=== PATIENT | male | born 1995 | race African-American/Black ===

== ENCOUNTER 2019-01-10 04:46 | Inpatient (IN) | payer MEDICAID, OTHER ==
[~2019-01-10] VITALS: Ht 188 cm; Wt 66.7 kg
[2019-01-10] MEDS ORDERED: OCTREOTIDE ACETATE 100 MCG in SODIUM CHL 0.9% 50 ML IV ONE (05:30)
[2019-01-10] MEDS ORDERED: OCTREOTIDE ACETATE 500 MCG in SODIUM CHL 0.9% 99 ML IV SCH (05:30)
[2019-01-10] MEDS ORDERED: OCTREOTIDE ACETATE 500 MCG/ML VL ONE (05:42)
[2019-01-10] MEDS ORDERED: OCTREOTIDE ACETATE 100 MCG/ML VL ONE (05:44)
[2019-01-10] MEDS ORDERED: PROMETHAZINE HCL 25 MG/ML 1ML IV ONE (05:45)
[2019-01-10] MEDS ORDERED: MORPHINE SULFATE 4 MG/ML SYR/VIAL IV ONE (05:45)
[2019-01-10 06:09] LABS: Basophils # (auto) 0 uL; Basophils % (auto) 0.1 % (0.0-2.0); Eosinophils # (auto) 0 uL; Hematocrit 49.7 % (41.0-53.0); Hemoglobin 16.4 g/dL (13.5-17.5); Lymphocytes # (auto) 0.9 uL; Lymphocytes % (auto) 5.1 % (10.0-50.0); Mean Corpuscular Hgb Conc. 32.9 g/dL (32.0-36.0); Mean Corpuscular Volume 88.1 fL (80.0-100.0); Monocytes # (auto) 0.9 uL; Monocytes % (auto) 4.9 % (0.0-12.0); Neutrophils % (auto) 89.9 % (37.0-80.0); Nucleated Red Blood Cells % 0.1 %; Platelet Count (auto) 331 10^3/uL (140-450); Red Blood Cells 5.64 10^6/uL (4.5-5.90); Red Cell Distribution Width 17.7 % (11.8-14.3); White Blood Cell 17.8 10^3/uL (4.4-10.8)
[2019-01-10 06:42] LABS: Albumin 4.2 g/dL (3.4-5.0); BUN/Creatinine Ratio 29.8; Calcium 9.4 mg/dL (8.5-10.1); Potassium 4.2 mmol/L (3.5-5.1)
[2019-01-10 06:45] LABS: Bilirubin, Total 0.7 mg/dL (0.2-1.0); Total Protein 8.9 g/dL (6.4-8.2)
[2019-01-10 07:08] LABS: INR 0.94 (0.9-1.15); Partial Thromboplastin Time 26.8 sec (23.64-32.05)
--- NOTE | 2019-01-10 07:35 | NUR ---
Opening Shift Note Assumed care of patient. Patient is sleeping with bilateral chest rise and fall. Will continue to monitor for changes Q1hr and PRN. Bed in low position and call light within reach
[2019-01-10] MEDS ORDERED: MORPHINE SULF INJ 2 MG/ML SYRINGE 1ML IV PRN (07:45)
[2019-01-10] MEDS ORDERED: DEXTROSE (50%) 50ML SYRG IV PRN (07:45)
[2019-01-10] MEDS ORDERED: NITROGLYCERIN 0.4 MG SL TAB SL PRN (07:45)
[2019-01-10] MEDS: SODIUM CHLORIDE 0.9% 1,000 ML IV SCH ×2 (08:43→21:25)
[2019-01-10] MEDS ORDERED: INSU1INJ19 SC (10:47)
[2019-01-10] MEDS ORDERED: INSREG3 SC (10:47)
[2019-01-10 10:56] LABS: Hematocrit 49.9 % (41.0-53.0); Hemoglobin 16.3 g/dL (13.5-17.5)
[2019-01-10] MEDS: LEVOFLOXACIN 500MG 100 ML IV SCH (11:06)
[2019-01-10] MEDS: PANTOPRAZOLE 40 MG TAB PO SCH ×2 (11:06→22:00)
[2019-01-10] MEDS: ACCU-CHEK COMFORT CURVE STRIP VI SCH ×2 (13:02→17:53)
[2019-01-10] MEDS: InsuLIN REG 1unit/0.01ml Soln (100units/ml) SC SCH ×2 (13:02→17:56)
[2019-01-10 14:35] VITALS: BP 132/79
[2019-01-10 16:53] VITALS: BP 142/71
--- NOTE | 2019-01-10 19:35 | NUR ---
Opening Shift Note Assumed care of patient. Patient is sleeping with bilateral chest rise and fall. Will continue to monitor for changes Q1hr and PRN. Bed in low position and call light within reach. Disregard last note from 0735 01/10/19.
[2019-01-10 20:00] VITALS: BP 134/76
[2019-01-10 21:18] VITALS: BP 146/89
[2019-01-11] MEDS: ACCU-CHEK COMFORT CURVE STRIP VI SCH ×4 (00:03→18:06)
[2019-01-11] MEDS: ONDANSETRON HCL 4 MG/2 ML VIAL IV PRN ×4 (00:03→20:48)
[2019-01-11] MEDS: InsuLIN REG 1unit/0.01ml Soln (100units/ml) SC SCH ×4 (00:04→18:07)
--- NOTE | 2019-01-11 03:05 | NUR ---
patient had an episode of Tachycardia in the 130bpm. Upon arrival to room patient is vomiting. VS 140/70 b/p, 80HR, 97% o2 saturation via room air. patient denies pain at the moment 0/10. Will medicate with nausea medication per protocol.
[2019-01-11 04:39] VITALS: BP 122/78
[2019-01-11 07:42] VITALS: BP 134/76
[2019-01-11 09:00] VITALS: BP 130/62
[2019-01-11] MEDS ORDERED: SODIUM CHLORIDE LOCK 10 ML ONE (09:51)
[2019-01-11] MEDS ORDERED: LIDOCAINE VISCOUS 2% 15ML UD ONE (09:52)
[2019-01-11] MEDS ORDERED: diphenhdrAMINE HCL 50 MG/1 ML VL ONE (09:52)
[2019-01-11] MEDS: PANTOPRAZOLE 40 MG TAB PO SCH ×2 (10:00→20:48)
[2019-01-11] MEDS: SODIUM CHLORIDE 0.9% 1,000 ML IV SCH ×2 (10:30→23:45)
[2019-01-11] MEDS: MIDAZOLAM HCL 5 MG/ML-1ML VIAL ONE ×2 (11:03→11:06)
[2019-01-11] MEDS: fentaNYL CITRATE 100 MCG/2 ML VL ONE ×2 (11:03→11:06)
[2019-01-11] MEDS: LEVOFLOXACIN 500MG 100 ML IV SCH (12:06)
[2019-01-11 13:00] VITALS: BP 139/50
[2019-01-11 13:19] LABS: Basophils # (auto) 0 uL; Basophils % (auto) 0.1 % (0.0-2.0); Eosinophils # (auto) 0 uL; Hematocrit 52.7 % (41.0-53.0); Hemoglobin 16.6 g/dL (13.5-17.5); Lymphocytes # (auto) 1.1 uL; Lymphocytes % (auto) 6.6 % (10.0-50.0); Mean Corpuscular Hemoglobin 28.5 pg (28.0-32.0); Mean Corpuscular Hgb Conc. 31.4 g/dL (32.0-36.0); Mean Corpuscular Volume 90.7 fL (80.0-100.0); Monocytes # (auto) 0.8 uL; Monocytes % (auto) 4.8 % (0.0-12.0); Neutrophils % (auto) 88.5 % (37.0-80.0); Platelet Count (auto) 314 10^3/uL (140-450); Red Blood Cells 5.82 10^6/uL (4.5-5.90); Red Cell Distribution Width 17.7 % (11.8-14.3); White Blood Cell 16.9 10^3/uL (4.4-10.8)
[2019-01-11 13:36] LABS: BUN/Creatinine Ratio 26.7; Potassium 4.1 mmol/L (3.5-5.1)
[2019-01-11 13:42] LABS: Calcium 9.2 mg/dL (8.5-10.1)
[2019-01-11 22:00] VITALS: BP 118/60
[2019-01-12] MEDS: InsuLIN REG 1unit/0.01ml Soln (100units/ml) SC SCH ×3 (00:20→12:28)
[2019-01-12] MEDS: ACCU-CHEK COMFORT CURVE STRIP VI SCH ×3 (00:20→12:27)
[2019-01-12 05:53] VITALS: BP 123/75
--- NOTE | 2019-01-12 07:25 | NUR ---
Open Shift Note Received report on patient, awake and lying in bed. Patient shows no signs of distress at this time. Discussed POC with patient. Bed in lowest locked position, side rails up x2 and call light within reach. Will continue to monitor.
--- NOTE | 2019-01-12 07:40 | NUR ---
REPORT GIVEN TO ELENA LORD
[2019-01-12 09:00] VITALS: BP 139/86
[2019-01-12] MEDS: LEVOFLOXACIN 500MG 100 ML IV SCH (10:08)
[2019-01-12] MEDS: PANTOPRAZOLE 40 MG TAB PO SCH (10:08)
[2019-01-12] MEDS: SODIUM CHLORIDE 0.9% 1,000 ML IV SCH (10:08)
--- NOTE | 2019-01-12 11:01 | NUR ---
Nutrition Assessment Notes please see attached link for complete assessment Est. Needs IBW [id number] kcal (25-30 kcal/kgBW), 86-103 gms pro (1.0-1.2 gms/kgBW). Will continue to monitor pertinent labs and reassess nutrient need prn Addendum: 01/12/19 at [address] Amended: Links added.
[2019-01-12 13:00] VITALS: BP 137/71
[2019-01-12 14:57] VITALS: BP 137/71
--- NOTE | 2019-01-12 16:10 | NUR ---
Discharged Discharge instructions given as ordered. Encourage to follow up with PMD and Dr Decker as instructed. All questions and concerns addressed. Patient verbalized understanding as well as patient's mother. Prescription given to patient and instructed to fill it at pharmacy of choice. IVs removed with catheters intact, pressure dressings applied, babin catheter removed. Patient taken to vehicle via wheelchair with all personal belongings, accompanied by staff and family member. No distress noted at time of departure.
--- NOTE | 2019-01-12 17:05 | NUR ---
Debora Called Patient's pharmacy [facility] called to state that patient's insurance will not cover BID Protonix, they will only cover Daily Protonix. Paged Dr Son to ask him if he would like to change the order. Dr Son stated that it is ok to change the order to Daily Protonix. Order read back and verified. Called [facility] back and spoke with Pharmacist Lyly, order changed.
== END 2019-01-12 16:10 | disposition home or self-care (01) | DRG 720 ==
LOC: EDSEX 04:46 → EDBD 04:46 → ER 04:46 → TELE 04:47 → TELE-CENTR 10:03 → CENTRAL 01-11 11:09
PROVIDERS: ADMIT Nurse Practitioner; ATTEND Internal Medicine Pulmonary Disease
PROC: 0DB48ZX Excision of Esophagogastric Junction, Via Natural or Artificial Opening Endoscopic, Diagnostic (ICD-10-PCS; principal; 2019-01-10)
PROC: 0DB68ZX Excision of Stomach, Via Natural or Artificial Opening Endoscopic, Diagnostic (ICD-10-PCS; 2019-01-10)
DX: A41.9 Sepsis, unspecified organism (principal); K29.71 Gastritis, unspecified, with bleeding; E10.65 Type 1 diabetes mellitus with hyperglycemia; I69.354 Hemiplegia and hemiparesis following cerebral infarction affecting left non-dominant side; D64.9 Anemia, unspecified; N39.0 Urinary tract infection, site not specified; H54.61 Unqualified visual loss, right eye, normal vision left eye; F12.90 Cannabis use, unspecified, uncomplicated; K44.9 Diaphragmatic hernia without obstruction or gangrene; K20.9 Esophagitis, unspecified; K52.9 Noninfective gastroenteritis and colitis, unspecified; Z79.4 Long term (current) use of insulin; Z79.899 Other long term (current) drug therapy
CPT/HCPCS: 36415; 43239; 74176; 80048; 80053; 80320; 82962; 83036; 85014; 85018; 85025; 85610; 85730; 86850; 86900; 86901; 87040; 96365; 96375; G0378; J1815; J1956; J2250; J2405

== ENCOUNTER 2020-10-10 01:52 | Inpatient (IN) | payer MEDICAID ==
[~2020-10-10] VITALS: Ht 185.4 cm; Wt 74.8 kg
[~2020-10-10 01:52] MED LIST: CLIN300C8 PO; INSU100I44 SC; INSU1INJ19 SC
[2020-10-10] MEDS ORDERED: ONDANSETRON HCL 4 MG/2 ML VIAL IV ONE (02:00)
[2020-10-10] MEDS ORDERED: SODIUM CHLORIDE 0.9% 1,000 ML IV ONE (02:00)
[2020-10-10] MEDS ORDERED: SODIUM BICARBONATE 8.4% INJ 50ML SYRINGE ONE (02:22)
[2020-10-10 02:25] LABS: Hemoglobin 17.9 g/dL (13.5-17.5); Mean Corpuscular Hemoglobin 31.1 pg (28.0-32.0); Mean Corpuscular Volume 97.3 fL (80.0-100.0); Red Blood Cells 5.76 10^6/uL (4.5-5.90); Red Cell Distribution Width 14.3 % (11.8-14.3)
[2020-10-10] MEDS ORDERED: SODIUM BICARBONATE 8.4 % INJ 50ML VIAL IV ONE (02:30)
[2020-10-10] MEDS ORDERED: SODIUM CHLORIDE 0.9% 3,000 ML IV ONE (02:30)
[2020-10-10 02:33] LABS: White Blood Cell 30.8 10^3/uL (4.4-10.8)
[2020-10-10 02:34] LABS: Basophils % (manual) 0 (0.0-2.0); Blast Cells 0; Eosinophils % (manual) 0 (0-7); Metamyelocytes % 0; Myelocytes % 0; Promyelocytes % 0; Reactive Lymphocytes 0
[2020-10-10 02:41] LABS: Albumin 4.7 g/dL (3.4-5.0); Alcohol, Urine < 3.0 mg/dL (0-10); Amphetamine Screen, Urine NEGATIVE (NEGATIVE); Barbiturate Scree,Urine NEGATIVE (NEGATIVE); Benzodiazephine Screen, Urine NEGATIVE (NEGATIVE); Calcium 9.8 mg/dL (8.5-10.1); Cannabinoid Screen, Urine POSITIVE (NEGATIVE); Cocaine Screen, Urine NEGATIVE (NEGATIVE); Magnesium 2.3 mg/dL (1.6-2.6); Opiate Scree,Urine NEGATIVE (NEGATIVE); Phencyclidine Screen, Urine NEGATIVE (NEGATIVE)
[2020-10-10 02:45] LABS: Total Protein 9.6 g/dL (6.4-8.2)
[2020-10-10] MEDS ORDERED: cefTRIAXone 1GM/50ML D5W 50 ML IV ONE (02:45)
[2020-10-10 02:46] LABS: BUN/Creatinine Ratio 16.8; Potassium 5.8 mmol/L (3.5-5.1)
[2020-10-10 02:48] LABS: INR 1.11 (0.9-1.15); Partial Thromboplastin Time 27.3 sec (23.0-31.2)
[2020-10-10 02:49] LABS: Urine Bacteria NONE SEEN /hpf (None Seen); Urine Blood Negative /uL (Negative); Urine Mucus FEW (None Seen); Urine WBC <1 /hpf (0 - 3)
[2020-10-10 02:50] LABS: Bilirubin, Total 0.9 mg/dL (0.2-1.0)
[2020-10-10 03:03] LABS: Band Neutrophils % (manual) 10; Lymphocytes % (manual) 5 (10.0-50.0); Monocytes % (manual) 1 (0-12)
[2020-10-10] MEDS ORDERED: PANTOPRAZOLE 40 MG/10 ML VIAL INJ IV ONE (03:15)
[2020-10-10] MEDS ORDERED: METOCLOPRAMIDE HCL 5MG/ml INJ 2ml VIAL IV ONE (03:15)
[2020-10-10] MEDS ORDERED: INSULIN LANTUS (GLARGINE) 1 /0.01ml (100units/ml) SC ONE (03:30)
[2020-10-10] MEDS ORDERED: InsuLIN REG 1unit/0.01ml Soln (100units/ml) IV ONE (03:30)
[2020-10-10] MEDS ORDERED: DEXTROSE (50%) 50ML SYRG IV PRN ×2 (03:30→18:00)
[2020-10-10] MEDS ORDERED: InsuLIN R (HUMAN) 100 UNITS in SODIUM CHL 0.9% 99 ML IV SCH (03:30)
[2020-10-10] MEDS ORDERED: InsuLIN REG 1unit/0.01ml Soln (100units/ml) ONE (03:41)
[2020-10-10] MEDS: ACCU-CHEK COMFORT CURVE STRIP VI SCH ×10 (03:57→20:26)
[2020-10-10] MEDS ORDERED: ACETAMINOPHEN 500 MG TAB PO PRN (08:30)
[2020-10-10] MEDS ORDERED: MORPHINE SULF INJ 2 MG/ML SYRINGE 1ML IV PRN ×2 (08:30)
[2020-10-10] MEDS ORDERED: NITROGLYCERIN 0.4 MG SL TAB SL PRN (08:30)
[2020-10-10] MEDS ORDERED: METOPROLOL TARTRATE 1MG/1ML-5ML VIAL IV PRN (08:30)
[2020-10-10 09:27] LABS: Calcium 6.6 mg/dL (8.5-10.1); Magnesium 1.7 mg/dL (1.6-2.6); Potassium 3.8 mmol/L (3.5-5.1)
[2020-10-10] MEDS ORDERED: D5W/SOD CHL 0.45% 1,000 ML IV SCH (10:00)
[2020-10-10] MEDS: cefTRIAXone 1GM/50ML D5W 50 ML IV SCH (10:29)
[2020-10-10] MEDS: PANTOPRAZOLE 40 MG/10 ML VIAL INJ IV SCH (10:29)
[2020-10-10 15:17] LABS: BUN/Creatinine Ratio 16.7; Calcium 7.7 mg/dL (8.5-10.1); Potassium 3.7 mmol/L (3.5-5.1)
[2020-10-10] MEDS: D5W/SOD CHL 0.45% 1,000 ML IV SCH (16:33)
[2020-10-10] MEDS: INSULIN LANTUS (GLARGINE) 1 /0.01ml (100units/ml) SC SCH (17:16)
[2020-10-10] MEDS: InsuLIN REG 1unit/0.01ml Soln (100units/ml) SC SCH ×2 (18:11→20:00)
[2020-10-10] MEDS: ONDANSETRON HCL 4 MG/2 ML VIAL IV PRN ×2 (18:20→22:26)
[2020-10-10 20:50] VITALS: BP 145/78
[2020-10-10 21:52] LABS: BUN/Creatinine Ratio 14.3; Calcium 7.9 mg/dL (8.5-10.1); Potassium 3.8 mmol/L (3.5-5.1)
[2020-10-10 22:00] VITALS: BP 145/78
[2020-10-11] MEDS: ACCU-CHEK COMFORT CURVE STRIP VI SCH ×6 (02:35→20:00)
[2020-10-11] MEDS: InsuLIN REG 1unit/0.01ml Soln (100units/ml) SC SCH ×6 (04:48→20:41)
[2020-10-11] MEDS: INSULIN LANTUS (GLARGINE) 1 /0.01ml (100units/ml) SC SCH ×2 (04:55→16:50)
[2020-10-11 05:00] VITALS: BP 148/75
[2020-10-11 06:19] LABS: Basophils # (auto) 0 10 ^3/uL (0-0.2); Basophils % (auto) 0.1 % (0.0-2.0); Eosinophils # (auto) 0.1 10 ^3/uL (0-0.8); Eosinophils % (auto) 0.3 % (0.0-7.0); Hematocrit 40.3 % (41.0-53.0); Hemoglobin 14.1 g/dL (13.5-17.5); Lymphocytes # (auto) 2.1 10 ^3/uL (0.4-5.4); Lymphocytes % (auto) 11.7 % (10.0-50.0); Mean Corpuscular Hemoglobin 32.6 pg (28.0-32.0); Mean Corpuscular Hgb Conc. 34.9 g/dL (32.0-36.0); Mean Corpuscular Volume 93.3 fL (80.0-100.0); Monocytes # (auto) 1.5 10 ^3/uL (0-1.3); Monocytes % (auto) 8.4 % (0.0-12.0); Neutrophils # (auto) 14.1 10 ^3/uL (1.6-8.6); Neutrophils % (auto) 79.5 % (37.0-80.0); Red Blood Cells 4.32 10^6/uL (4.5-5.90); Red Cell Distribution Width 13.3 % (11.8-14.3); White Blood Cell 17.7 10^3/uL (4.4-10.8)
[2020-10-11 06:43] LABS: Anion Gap 9 (5-15); Calcium 8.2 mg/dL (8.5-10.1); Carbon Dioxide 22 mmol/L (21-32); Chloride 102 mmol/L (98-107); Glucose 198 mg/dL (74-106); Magnesium 2.1 mg/dL (1.6-2.6); Potassium 3.4 mmol/L (3.5-5.1); Sodium 133 mmol/L (136-145)
[2020-10-11] MEDS: D5W/SOD CHL 0.45% 1,000 ML IV SCH (06:44)
[2020-10-11 06:53] LABS: BUN/Creatinine Ratio 11.1; Blood Urea Nitrogen 12 mg/dL (7-18); GFR African American 108 mL/min; GFR Non-African American 89 mL/min
[2020-10-11 09:00] VITALS: BP 122/72
[2020-10-11] MEDS ORDERED: INSULIN LANTUS (GLARGINE) 1 /0.01ml (100units/ml) SC SCH (10:00)
[2020-10-11] MEDS ORDERED: INSULIN LANTUS (GLARGINE) 1 /0.01ml (100units/ml) SC ONE (10:30)
[2020-10-11] MEDS ORDERED: POTASSIUM CHLORIDE 20 MEQ, LIDOCAINE 1% (LOCAL ANESTH.) 2 ML in SODIUM CHL 0.9% 100 ML IV ONE (11:30)
[2020-10-11] MEDS: PANTOPRAZOLE 40 MG/10 ML VIAL INJ IV SCH (11:33)
[2020-10-11] MEDS: cefTRIAXone 1GM/50ML D5W 50 ML IV SCH (11:33)
[2020-10-11 13:00] VITALS: BP 126/60
[2020-10-11] MEDS: ONDANSETRON HCL 4 MG/2 ML VIAL IV PRN (13:15)
[2020-10-11] MEDS ORDERED: ARIP15TA PO (14:40)
[2020-10-11] MEDS ORDERED: TRAZ300T16 PO (14:42)
[2020-10-11] MEDS ORDERED: ASPI-231 PO (14:42)
[2020-10-11] MEDS ORDERED: ATOR10TA52 PO (14:42)
[2020-10-11] MEDS ORDERED: DOXE10CA34 PO (14:42)
[2020-10-11] MEDS ORDERED: DIP25C PO (14:42)
[2020-10-11] MEDS ORDERED: METOCLOPRAMIDE HCL 5MG/ml INJ 2ml VIAL IV ONE (15:15)
[2020-10-11 16:58] VITALS: BP 127/67
[2020-10-11] MEDS: METOCLOPRAMIDE HCL 5MG/ml INJ 2ml VIAL IV SCH (21:52)
[2020-10-11 22:00] VITALS: BP 119/57
[2020-10-11] MEDS ORDERED: traZODone HCL 50 MG TAB PO SCH ×2 (22:00)
[2020-10-11] MEDS ORDERED: diphenhdrAMINE HCL 25 MG CAP PO SCH (22:00)
[2020-10-11] MEDS ORDERED: ASPirin 81 mg TAB PO SCH (22:00)
[2020-10-11] MEDS ORDERED: ATORVASTATIN 20 MG TAB PO SCH (22:00)
[2020-10-12] MEDS: ACCU-CHEK COMFORT CURVE STRIP VI SCH ×4 (00:06→12:29)
[2020-10-12] MEDS: InsuLIN REG 1unit/0.01ml Soln (100units/ml) SC SCH ×4 (04:00→12:30)
[2020-10-12 05:00] VITALS: BP 113/64
[2020-10-12] MEDS: INSULIN LANTUS (GLARGINE) 1 /0.01ml (100units/ml) SC SCH (05:30)
[2020-10-12] MEDS: METOCLOPRAMIDE HCL 5MG/ml INJ 2ml VIAL IV SCH (05:31)
[2020-10-12] MEDS ORDERED: PANT40TA2 PO (08:43)
[2020-10-12] MEDS ORDERED: METO5TAB67 PO (08:43)
[2020-10-12 09:00] VITALS: BP 116/77
[2020-10-12] MEDS: PANTOPRAZOLE 40 MG/10 ML VIAL INJ IV SCH (10:00)
[2020-10-12] MEDS ORDERED: INSULIN LANTUS (GLARGINE) 1 /0.01ml (100units/ml) SC SCH (10:00)
[2020-10-12] MEDS: cefTRIAXone 1GM/50ML D5W 50 ML IV SCH (10:00)
[2020-10-12 13:00] VITALS: BP 128/72
== END 2020-10-12 14:05 | disposition home or self-care (01) | DRG 420 ==
LOC: EDBD 01:52 → ER 01:52 → ICU CENTRL 08:16 → TELE-WESTW 19:41
PROVIDERS: ADMIT Hospitalist; ATTEND Hospitalist
DX: E11.10 Type 2 diabetes mellitus with ketoacidosis without coma (principal); N17.0 Acute kidney failure with tubular necrosis; E87.8 Other disorders of electrolyte and fluid balance, not elsewhere classified; E86.0 Dehydration; Z79.899 Other long term (current) drug therapy; Z20.822 Contact with and (suspected) exposure to COVID-19; F12.90 Cannabis use, unspecified, uncomplicated; Z79.4 Long term (current) use of insulin; Z83.3 Family history of diabetes mellitus; Z86.73 Personal history of transient ischemic attack (TIA), and cerebral infarction without residual deficits
CPT/HCPCS: 36415; 36600; 71045; 80048; 80053; 80307; 81001; 82010; 82805; 82962; 83605; 83735; 83880; 84484; 85007; 85025; 85027; 85049; 85610; 85730; 87040; 87086; 87426; 93005; 96361; 96365; 96366; 96368; 96372; 96375; 96376; 99291; C9113; G0378; J0696; J1815; J2001; J2405

== ENCOUNTER 2021-05-06 08:28 | Inpatient (IN) | payer MEDICAID ==
[~2021-05-06] VITALS: Ht 185.4 cm; Wt 66.9 kg
[~2021-05-06 08:28] MED LIST changes: +ARIP15TA PO; +ASPI1TAB20 PO; +ATOR10TA52 PO; -CLIN300C8 PO; +DOXE10CA34 PO; +METO5TAB67 PO; +PANT40TA2 PO; +TRAZ300T16 PO
[2021-05-06] MEDS ORDERED: ONDANSETRON HCL 4 MG/2 ML VIAL IV ONE (09:00)
[2021-05-06] MEDS ORDERED: SODIUM CHLORIDE 0.9% 1,000 ML IV ONE (09:00)
[2021-05-06 09:50] LABS: Hemoglobin 15.1 g/dL (13.5-17.5); Mean Corpuscular Volume 102.5 fL (80.0-100.0)
[2021-05-06 09:50] LABS: Alcohol, Urine < 3.0 mg/dL (0-10); Amphetamine Screen, Urine NEGATIVE (NEGATIVE); Barbiturate Scree,Urine NEGATIVE (NEGATIVE); Benzodiazephine Screen, Urine NEGATIVE (NEGATIVE); Cannabinoid Screen, Urine NEGATIVE (NEGATIVE); Cocaine Screen, Urine NEGATIVE (NEGATIVE); Opiate Scree,Urine NEGATIVE (NEGATIVE); Phencyclidine Screen, Urine NEGATIVE (NEGATIVE)
[2021-05-06 09:52] LABS: Hematocrit 49.5 % (41.0-53.0); Mean Corpuscular Hemoglobin 31.3 pg (28.0-32.0); Mean Corpuscular Hgb Conc. 30.5 g/dL (32.0-36.0); Red Blood Cells 4.83 10^6/uL (4.5-5.90)
[2021-05-06 10:03] LABS: Albumin 4.5 g/dL (3.4-5.0); Calcium 9.9 mg/dL (8.5-10.1); Potassium 4.8 mmol/L (3.5-5.1)
[2021-05-06 10:05] LABS: White Blood Cell 34.9 10^3/uL (4.4-10.8)
[2021-05-06 10:06] LABS: Basophils % (manual) 0 (0.0-2.0); Blast Cells 0; Eosinophils % (manual) 0 (0-7); Lactic Acid w/Reflex 6.1 mmol/L (0.4-2.0); Metamyelocytes % 0; Myelocytes % 0; Promyelocytes % 0; Reactive Lymphocytes 0
[2021-05-06 10:08] LABS: Bilirubin, Total 0.5 mg/dL (0.2-1.0); Total Protein 9.2 g/dL (6.4-8.2)
[2021-05-06 10:10] LABS: Urine Bacteria NONE SEEN /hpf (None Seen); Urine Blood Negative /uL (Negative); Urine Mucus FEW (None Seen); Urine Specific Gravity 1.021 (1.001-1.035); Urine WBC <1 /hpf (0 - 3)
[2021-05-06] MEDS ORDERED: PIPERACILLIN-TAZOB 3.375GM 100 ML IV ONE (10:30)
[2021-05-06] MEDS ORDERED: VANCOMYCIN 1GM/250ML 250 ML IV ONE (10:30)
[2021-05-06] MEDS ORDERED: DEXTROSE (50%) 50ML SYRG IV PRN (12:45)
[2021-05-06] MEDS ORDERED: INSULIN LANTUS (GLARGINE) 1 /0.01ml (100units/ml) SC ONE (12:45)
[2021-05-06] MEDS: ACCU-CHEK COMFORT CURVE STRIP VI SCH ×4 (13:36→18:05)
[2021-05-06] MEDS: SODIUM CHLORIDE 0.9% 1,000 ML IV SCH ×3 (13:38→18:20)
[2021-05-06] MEDS: InsuLIN R (HUMAN) 100 UNITS in SODIUM CHL 0.9% 99 ML IV SCH ×4 (13:55→20:02)
[2021-05-06] MEDS ORDERED: ONDANSETRON HCL 4 MG/2 ML VIAL IV PRN (14:15)
[2021-05-06] MEDS ORDERED: ACETAMINOPHEN 325 MG TAB PO PRN (14:15)
[2021-05-06] MEDS ORDERED: MORPHINE SULFATE INJECTION 2 MG/ML SYRG IV PRN ×2 (14:15)
[2021-05-06] MEDS ORDERED: NITROGLYCERIN 0.4 MG SL TAB SL PRN (14:15)
[2021-05-06 14:25] LABS: Magnesium 2.4 mg/dL (1.6-2.6); Phosphorus 3.7 mg/dL (2.5-4.90)
[2021-05-06 15:01] LABS: Band Neutrophils % (manual) 5; Lymphocytes % (manual) 6 (10.0-50.0); Monocytes % (manual) 7 (0-12)
[2021-05-06] MEDS ORDERED: SODIUM CHLORIDE 0.9% 1,000 ML IV SCH (16:45)
[2021-05-06] MEDS: PIPERACILLIN-TAZOB 3.375GM 100 ML IV SCH (18:05)
[2021-05-06 19:27] LABS: Calcium 9.5 mg/dL (8.5-10.1)
[2021-05-06 19:30] LABS: BUN/Creatinine Ratio 25.4
[2021-05-06] MEDS ORDERED: D5W/SOD CHL 0.45% 1,000 ML IV SCH (23:00)
[2021-05-07] MEDS ORDERED: ACCU-CHEK COMFORT CURVE STRIP VI SCH
[2021-05-07] MEDS: PIPERACILLIN-TAZOB 3.375GM 100 ML IV SCH ×4 (00:30→18:00)
[2021-05-07] MEDS ORDERED: DEXTROSE (50%) 50ML SYRG IV PRN (00:45)
[2021-05-07 01:20] LABS: BUN/Creatinine Ratio 23.2; Calcium 8.8 mg/dL (8.5-10.1); Magnesium 2.3 mg/dL (1.6-2.6); Phosphorus 3.5 mg/dL (2.5-4.90); Potassium 4.2 mmol/L (3.5-5.1)
[2021-05-07] MEDS: SODIUM CHLORIDE 0.9% 1,000 ML IV SCH ×4 (01:25→21:25)
[2021-05-07] MEDS: InsuLIN REG 1unit/0.01ml Soln (100units/ml) SC SCH ×5 (01:30→23:05)
[2021-05-07] MEDS: ACCU-CHEK COMFORT CURVE STRIP VI SCH ×5 (04:00→21:47)
[2021-05-07] MEDS: ENOXAPARIN SOD 40 MG/0.4 ML SYRINGE SC SCH (04:59)
[2021-05-07 06:48] LABS: Potassium 3.5 mmol/L (3.5-5.1)
[2021-05-07 06:59] LABS: Albumin 3.3 g/dL (3.4-5.0); BUN/Creatinine Ratio 22.9; Bilirubin, Total 0.7 mg/dL (0.2-1.0); Calcium 8.4 mg/dL (8.5-10.1); Magnesium 2.9 mg/dL (1.6-2.6); Phosphorus 2.7 mg/dL (2.5-4.90); Total Protein 6.7 g/dL (6.4-8.2)
[2021-05-07 07:38] LABS: Basophils # (auto) 0.1 10 ^3/uL (0-0.2); Basophils % (auto) 0.3 % (0.0-2.0); Eosinophils # (auto) 0.2 10 ^3/uL (0-0.8); Eosinophils % (auto) 0.8 % (0.0-7.0); Hematocrit 37.2 % (41.0-53.0); Hemoglobin 12.4 g/dL (13.5-17.5); Lymphocytes # (auto) 3.2 10 ^3/uL (0.4-5.4); Lymphocytes % (auto) 16.5 % (10.0-50.0); Mean Corpuscular Hemoglobin 31.9 pg (28.0-32.0); Mean Corpuscular Hgb Conc. 33.3 g/dL (32.0-36.0); Mean Corpuscular Volume 95.6 fL (80.0-100.0); Monocytes # (auto) 1.5 10 ^3/uL (0-1.3); Monocytes % (auto) 7.5 % (0.0-12.0); Neutrophils # (auto) 14.6 10 ^3/uL (1.6-8.6); Neutrophils % (auto) 74.9 % (37.0-80.0); Nucleated Red Blood Cells % 0.1 %; Red Blood Cells 3.89 10^6/uL (4.5-5.90); Red Cell Distribution Width 14.3 % (11.8-14.3); White Blood Cell 19.5 10^3/uL (4.4-10.8)
[2021-05-07 14:13] LABS: Phosphorus 2.2 mg/dL (2.5-4.90)
[2021-05-07 14:28] VITALS: BP 120/70
[2021-05-07 17:33] VITALS: BP 123/67
[2021-05-07 20:00] VITALS: BP 113/65
[2021-05-07 20:04] LABS: Phosphorus 1.9 mg/dL (2.5-4.90)
[2021-05-07] MEDS ORDERED: VANCOMYCIN PER PHARMACY 0 MG IV SCH (20:15)
[2021-05-07] MEDS: INSULIN LANTUS (GLARGINE) 1 /0.01ml (100units/ml) SC SCH (21:40)
[2021-05-07] MEDS: VANCOMYCIN 1GM/250ML 250 ML IV SCH (21:40)
[2021-05-07 22:00] VITALS: BP 113/65
[2021-05-08] MEDS: InsuLIN REG 1unit/0.01ml Soln (100units/ml) SC SCH ×6 (00:04→20:05)
[2021-05-08] MEDS ORDERED: TEMAZEPAM 15 MG CAP PO ONE (00:15)
[2021-05-08] MEDS: ACCU-CHEK COMFORT CURVE STRIP VI SCH ×6 (04:03→20:05)
[2021-05-08] MEDS: SODIUM CHLORIDE 0.9% 1,000 ML IV SCH ×3 (04:15→17:37)
[2021-05-08 05:00] VITALS: BP 120/66
[2021-05-08] MEDS: VANCOMYCIN 1GM/250ML 250 ML IV SCH ×3 (05:39→22:09)
[2021-05-08 06:26] LABS: BUN/Creatinine Ratio 15.8; Calcium 8.5 mg/dL (8.5-10.1); Potassium 3.6 mmol/L (3.5-5.1)
[2021-05-08] MEDS: PIPERACILLIN-TAZOB 3.375GM 100 ML IV SCH ×4 (06:37→17:38)
[2021-05-08 09:00] VITALS: BP 119/84
[2021-05-08] MEDS: ENOXAPARIN SOD 40 MG/0.4 ML SYRINGE SC SCH (09:16)
[2021-05-08 12:57] VITALS: BP 128/73
[2021-05-08 16:34] VITALS: BP 131/81
[2021-05-08] MEDS: INSULIN LANTUS (GLARGINE) 1 /0.01ml (100units/ml) SC SCH (22:10)
[2021-05-09] MEDS: ACCU-CHEK COMFORT CURVE STRIP VI SCH ×6 (00:06→20:29)
[2021-05-09] MEDS: InsuLIN REG 1unit/0.01ml Soln (100units/ml) SC SCH ×6 (00:08→20:00)
[2021-05-09] MEDS: SODIUM CHLORIDE 0.9% 1,000 ML IV SCH ×4 (00:11→20:29)
[2021-05-09] MEDS: PIPERACILLIN-TAZOB 3.375GM 100 ML IV SCH ×4 (00:46→18:00)
[2021-05-09 04:00] VITALS: BP 109/69
[2021-05-09] MEDS: VANCOMYCIN 1GM/250ML 250 ML IV SCH ×3 (05:47→22:00)
[2021-05-09 09:00] VITALS: BP 113/62
[2021-05-09] MEDS: ENOXAPARIN SOD 40 MG/0.4 ML SYRINGE SC SCH (09:56)
[2021-05-09 13:00] VITALS: BP 134/86
[2021-05-09 17:00] VITALS: BP 127/56
[2021-05-09] MEDS: INSULIN LANTUS (GLARGINE) 1 /0.01ml (100units/ml) SC SCH (20:38)
[2021-05-09 22:00] VITALS: BP 120/77
[2021-05-10] MEDS: InsuLIN REG 1unit/0.01ml Soln (100units/ml) SC SCH ×5 (00:01→16:00)
[2021-05-10] MEDS: PIPERACILLIN-TAZOB 3.375GM 100 ML IV SCH ×4 (00:05→18:00)
[2021-05-10] MEDS: ACCU-CHEK COMFORT CURVE STRIP VI SCH ×5 (00:05→16:00)
[2021-05-10] MEDS: SODIUM CHLORIDE 0.9% 1,000 ML IV SCH ×2 (02:45→09:25)
[2021-05-10 05:00] VITALS: BP 114/64
[2021-05-10] MEDS: VANCOMYCIN 1GM/250ML 250 ML IV SCH ×2 (06:24→14:00)
[2021-05-10 08:00] VITALS: BP 126/71
[2021-05-10] MEDS: ENOXAPARIN SOD 40 MG/0.4 ML SYRINGE SC SCH (10:10)
[2021-05-10 12:00] VITALS: BP 126/76
[2021-05-10] MEDS ORDERED: LINE1TAB6 PO (13:12)
[2021-05-10] MEDS ORDERED: PANT40TA2 PO (13:12)
[2021-05-10 13:22] LABS: BUN/Creatinine Ratio 13.8; Calcium 8.7 mg/dL (8.5-10.1); Potassium 3.9 mmol/L (3.5-5.1)
[2021-05-10 14:02] LABS: Basophils # (auto) 0.1 10 ^3/uL (0-0.2); Eosinophils # (auto) 0.2 10 ^3/uL (0-0.8); Eosinophils % (auto) 3.3 % (0.0-7.0); Hematocrit 34.9 % (41.0-53.0); Hemoglobin 11.7 g/dL (13.5-17.5); Lymphocytes # (auto) 2.3 10 ^3/uL (0.4-5.4); Lymphocytes % (auto) 39.3 % (10.0-50.0); Mean Corpuscular Hemoglobin 31.9 pg (28.0-32.0); Mean Corpuscular Hgb Conc. 33.4 g/dL (32.0-36.0); Mean Corpuscular Volume 95.6 fL (80.0-100.0); Monocytes # (auto) 0.5 10 ^3/uL (0-1.3); Monocytes % (auto) 8.6 % (0.0-12.0); Neutrophils # (auto) 2.7 10 ^3/uL (1.6-8.6); Neutrophils % (auto) 46.8 % (37.0-80.0); Red Blood Cells 3.65 10^6/uL (4.5-5.90); White Blood Cell 5.7 10^3/uL (4.4-10.8)
== END 2021-05-10 18:26 | disposition home or self-care (01) | DRG 720 ==
LOC: ER 08:28 → OVERFLOW 14:15 → UNDOADMIN 14:15 → TELE 14:30 → OVERFLOW 05-07 10:58 → TELE-WESTW 05-07 10:58 → UNDODISIN 05-10 18:26
PROVIDERS: ADMIT Nurse Practitioner Family; ATTEND Nurse Practitioner Family
PROC: 06HM33Z Insertion of Infusion Device into Right Femoral Vein, Percutaneous Approach (ICD-10-PCS; principal; 2021-05-06)
DX: A41.9 Sepsis, unspecified organism (principal); N17.0 Acute kidney failure with tubular necrosis; E10.10 Type 1 diabetes mellitus with ketoacidosis without coma; E86.0 Dehydration; F12.90 Cannabis use, unspecified, uncomplicated; F20.9 Schizophrenia, unspecified; B95.8 Unspecified staphylococcus as the cause of diseases classified elsewhere; K20.90 Esophagitis, unspecified without bleeding; Z20.822 Contact with and (suspected) exposure to COVID-19; Z79.4 Long term (current) use of insulin; Z86.73 Personal history of transient ischemic attack (TIA), and cerebral infarction without residual deficits; Z90.01 Acquired absence of eye; Z91.19 Patient's noncompliance with other medical treatment and regimen
CPT/HCPCS: 36415; 36600; 71045; 74176; 80048; 80053; 80202; 80307; 81001; 82010; 82565; 82805; 82962; 83605; 83690; 83735; 83930; 84100; 84484; 85007; 85025; 85027; 87040; 87077; 87186; 93005; 93306; 96361; 96374; 99291; G0378; J1815; J2405; J2543

== ENCOUNTER 2021-05-19 08:20 | Inpatient (IN) | payer MEDICAID ==
[~2021-05-19] VITALS: Ht 182.9 cm; Wt 67.8 kg
[~2021-05-19 08:20] MED LIST changes: +LINE1TAB6 PO; -METO5TAB67 PO
[2021-05-19] MEDS ORDERED: DEXTROSE (50%) 50ML SYRG IV PRN (08:45)
[2021-05-19] MEDS ORDERED: INSULIN LANTUS (GLARGINE) 1 /0.01ml (100units/ml) SC ONE ×2 (08:45→18:15)
[2021-05-19 10:12] LABS: Eosinophils # (auto) 0 10 ^3/uL (0-0.8); Hemoglobin 15.3 g/dL (13.5-17.5)
[2021-05-19 10:13] LABS: Basophils # (auto) 0.1 10 ^3/uL (0-0.2); Basophils % (auto) 0.3 % (0.0-2.0); Hematocrit 46.2 % (41.0-53.0); Lymphocytes # (auto) 1.9 10 ^3/uL (0.4-5.4); Lymphocytes % (auto) 7.8 % (10.0-50.0); Mean Corpuscular Hemoglobin 31.7 pg (28.0-32.0); Mean Corpuscular Hgb Conc. 33.2 g/dL (32.0-36.0); Mean Corpuscular Volume 95.4 fL (80.0-100.0); Monocytes # (auto) 1.4 10 ^3/uL (0-1.3); Monocytes % (auto) 5.5 % (0.0-12.0); Neutrophils # (auto) 21.4 10 ^3/uL (1.6-8.6); Neutrophils % (auto) 86.4 % (37.0-80.0); Red Blood Cells 4.84 10^6/uL (4.5-5.90); Red Cell Distribution Width 15.2 % (11.8-14.3); White Blood Cell 24.7 10^3/uL (4.4-10.8)
[2021-05-19] MEDS: SODIUM CHLORIDE 0.9% 1,000 ML IV SCH ×6 (10:28→21:29)
[2021-05-19] MEDS ORDERED: ONDANSETRON HCL 4 MG/2 ML VIAL IV ONE (10:30)
[2021-05-19] MEDS ORDERED: ONDANSETRON HCL 4 MG/2 ML VIAL ONE (10:30)
[2021-05-19 10:31] LABS: Potassium 4.2 mmol/L (3.5-5.1)
[2021-05-19 10:36] LABS: Calcium 10.4 mg/dL (8.5-10.1); Magnesium 3.2 mg/dL (1.6-2.6); Phosphorus 5.8 mg/dL (2.5-4.90)
[2021-05-19] MEDS: ACCU-CHEK COMFORT CURVE STRIP VI SCH ×7 (11:30→22:11)
[2021-05-19] MEDS ORDERED: VANCOMYCIN 1GM/250ML 250 ML IV ONE (12:30)
[2021-05-19] MEDS ORDERED: DOCUSATE SOD 100 MG CAP PO PRN (13:30)
[2021-05-19] MEDS ORDERED: ACETAMINOPHEN 325 MG TAB PO PRN (13:30)
[2021-05-19] MEDS ORDERED: MORPHINE SULFATE INJECTION 2 MG/ML SYRG IV PRN (13:30)
[2021-05-19] MEDS ORDERED: NITROGLYCERIN 0.4 MG SL TAB SL PRN (13:30)
[2021-05-19] MEDS ORDERED: HYDROcodone-ACET 5/325MG TAB PO PRN (13:30)
[2021-05-19] MEDS ORDERED: POLYETHYLENE GLYCOL 17 GM PWDR PO ONE (14:00)
[2021-05-19] MEDS: InsuLIN R (HUMAN) 100 UNITS in SODIUM CHL 0.9% 99 ML IV SCH ×2 (14:08→15:17)
[2021-05-19] MEDS: ONDANSETRON HCL 4 MG/2 ML VIAL IV PRN ×3 (14:45→23:28)
[2021-05-19 15:54] LABS: Anion Gap 15 (5-15); BUN/Creatinine Ratio 18.6; Blood Urea Nitrogen 34 mg/dL (7-18); Calcium 9.2 mg/dL (8.5-10.1); Carbon Dioxide 20 mmol/L (21-32); Chloride 102 mmol/L (98-107); GFR African American 58 mL/min; GFR Non-African American 48 mL/min; Glucose 358 mg/dL (74-106); Sodium 137 mmol/L (136-145)
[2021-05-19] MEDS ORDERED: D5W/SOD CHL 0.45% 1,000 ML IV SCH (16:45)
[2021-05-19 18:55] LABS: Urine Bacteria NONE SEEN /hpf (None Seen); Urine Blood TRACE /uL (Negative); Urine Specific Gravity 1.027 (1.001-1.035); Urine WBC <1 /hpf (0 - 3)
[2021-05-19 18:57] LABS: Basophils # (auto) 0.1 10 ^3/uL (0-0.2); Eosinophils # (auto) 0 10 ^3/uL (0-0.8); Hemoglobin 14.7 g/dL (13.5-17.5); Red Cell Distribution Width 14.7 % (11.8-14.3)
[2021-05-19 18:59] LABS: Basophils % (auto) 0.4 % (0.0-2.0); Hematocrit 43.2 % (41.0-53.0); Lymphocytes # (auto) 2.2 10 ^3/uL (0.4-5.4); Lymphocytes % (auto) 8.1 % (10.0-50.0); Mean Corpuscular Hemoglobin 31.7 pg (28.0-32.0); Mean Corpuscular Hgb Conc. 34.1 g/dL (32.0-36.0); Mean Corpuscular Volume 92.8 fL (80.0-100.0); Monocytes # (auto) 1.8 10 ^3/uL (0-1.3); Monocytes % (auto) 6.7 % (0.0-12.0); Neutrophils # (auto) 22.8 10 ^3/uL (1.6-8.6); Neutrophils % (auto) 84.8 % (37.0-80.0); Nucleated Red Blood Cells % 0.2 %; Red Blood Cells 4.65 10^6/uL (4.5-5.90); White Blood Cell 26.9 10^3/uL (4.4-10.8)
[2021-05-19 19:18] LABS: BUN/Creatinine Ratio 20.6; Potassium 3.7 mmol/L (3.5-5.1)
[2021-05-19 19:20] LABS: Alcohol, Urine < 3.0 mg/dL (0-10); Amphetamine Screen, Urine NEGATIVE (NEGATIVE); Barbiturate Scree,Urine NEGATIVE (NEGATIVE); Benzodiazephine Screen, Urine NEGATIVE (NEGATIVE); Cannabinoid Screen, Urine POSITIVE (NEGATIVE); Cocaine Screen, Urine NEGATIVE (NEGATIVE); Opiate Scree,Urine NEGATIVE (NEGATIVE); Phencyclidine Screen, Urine NEGATIVE (NEGATIVE)
[2021-05-19] MEDS ORDERED: VANCOMYCIN PER PHARMACY 0 MG IV SCH (21:30)
[2021-05-19] MEDS: InsuLIN REG 1unit/0.01ml Soln (100units/ml) SC SCH (22:14)
[2021-05-20] MEDS: VANCOMYCIN 1GM/250ML 250 ML IV SCH ×2 (03:30→18:20)
[2021-05-20 03:37] LABS: BUN/Creatinine Ratio 20.5; Calcium 9.6 mg/dL (8.5-10.1); Potassium 3.8 mmol/L (3.5-5.1)
[2021-05-20] MEDS: SODIUM CHLORIDE 0.9% 1,000 ML IV SCH ×3 (04:05→15:30)
[2021-05-20] MEDS: InsuLIN REG 1unit/0.01ml Soln (100units/ml) SC SCH ×4 (06:47→22:31)
[2021-05-20] MEDS: ACCU-CHEK COMFORT CURVE STRIP VI SCH ×4 (07:05→22:29)
[2021-05-20 07:18] LABS: Albumin 3.4 g/dL (3.4-5.0); Potassium 3.4 mmol/L (3.5-5.1)
[2021-05-20 07:21] LABS: BUN/Creatinine Ratio 23.1; Bilirubin, Total 0.4 mg/dL (0.2-1.0); Total Protein 6.9 g/dL (6.4-8.2)
[2021-05-20 07:28] LABS: Basophils # (auto) 0.1 10 ^3/uL (0-0.2); Basophils % (auto) 0.4 % (0.0-2.0); Eosinophils # (auto) 0 10 ^3/uL (0-0.8); Eosinophils % (auto) 0.2 % (0.0-7.0); Hematocrit 36.5 % (41.0-53.0); Hemoglobin 12.4 g/dL (13.5-17.5); Lymphocytes # (auto) 1.7 10 ^3/uL (0.4-5.4); Lymphocytes % (auto) 10.1 % (10.0-50.0); Mean Corpuscular Hemoglobin 31.8 pg (28.0-32.0); Mean Corpuscular Hgb Conc. 33.9 g/dL (32.0-36.0); Mean Corpuscular Volume 93.9 fL (80.0-100.0); Monocytes # (auto) 1.2 10 ^3/uL (0-1.3); Neutrophils % (auto) 82.3 % (37.0-80.0); Nucleated Red Blood Cells % 0.1 %; Red Blood Cells 3.89 10^6/uL (4.5-5.90); Red Cell Distribution Width 14.8 % (11.8-14.3); White Blood Cell 17.1 10^3/uL (4.4-10.8)
[2021-05-20] MEDS ORDERED: POTASSIUM CHL 20 Meq TABLET PO ONE (09:30)
[2021-05-20] MEDS: INSULIN LANTUS (GLARGINE) 1 /0.01ml (100units/ml) SC SCH (09:46)
[2021-05-20] MEDS: PANTOPRAZOLE 40 MG TAB PO SCH (09:46)
[2021-05-20] MEDS: ASPirin-EC 81 mg tab PO SCH (09:46)
[2021-05-20] MEDS: ENOXAPARIN SOD 40 MG/0.4 ML SYRINGE SC SCH (09:51)
[2021-05-20] MEDS: ONDANSETRON HCL 4 MG/2 ML VIAL IV PRN (09:52)
[2021-05-20] MEDS ORDERED: INSULIN LANTUS (GLARGINE) 1 /0.01ml (100units/ml) SC SCH (10:00)
[2021-05-20 17:00] VITALS: BP 105/63
[2021-05-20 20:00] VITALS: BP 103/50
[2021-05-20 22:00] VITALS: BP 103/50
[2021-05-21] MEDS: SODIUM CHLORIDE 0.9% 1,000 ML IV SCH ×3 (00:30→13:25)
[2021-05-21 06:00] VITALS: BP 115/81
[2021-05-21] MEDS: ACCU-CHEK COMFORT CURVE STRIP VI SCH ×2 (06:25→12:27)
[2021-05-21] MEDS: InsuLIN REG 1unit/0.01ml Soln (100units/ml) SC SCH ×2 (06:36→12:22)
[2021-05-21 07:12] LABS: Basophils # (auto) 0.1 10 ^3/uL (0-0.2); Basophils % (auto) 0.5 % (0.0-2.0); Eosinophils # (auto) 0.1 10 ^3/uL (0-0.8); Eosinophils % (auto) 1.1 % (0.0-7.0); Hematocrit 35.4 % (41.0-53.0); Hemoglobin 11.7 g/dL (13.5-17.5); Lymphocytes # (auto) 1.6 10 ^3/uL (0.4-5.4); Lymphocytes % (auto) 16.3 % (10.0-50.0); Mean Corpuscular Hemoglobin 31.2 pg (28.0-32.0); Mean Corpuscular Volume 94.6 fL (80.0-100.0); Monocytes # (auto) 0.7 10 ^3/uL (0-1.3); Neutrophils # (auto) 7.6 10 ^3/uL (1.6-8.6); Neutrophils % (auto) 75.1 % (37.0-80.0); Red Blood Cells 3.74 10^6/uL (4.5-5.90); Red Cell Distribution Width 14.9 % (11.8-14.3); White Blood Cell 10.1 10^3/uL (4.4-10.8)
[2021-05-21 09:00] VITALS: BP 121/87
[2021-05-21] MEDS: INSULIN LANTUS (GLARGINE) 1 /0.01ml (100units/ml) SC SCH (10:03)
[2021-05-21] MEDS: ENOXAPARIN SOD 40 MG/0.4 ML SYRINGE SC SCH (10:03)
[2021-05-21] MEDS: PANTOPRAZOLE 40 MG TAB PO SCH (10:04)
[2021-05-21] MEDS: ASPirin-EC 81 mg tab PO SCH (10:04)
[2021-05-21] MEDS: VANCOMYCIN 1GM/250ML 250 ML IV SCH (10:23)
[2021-05-21 13:00] VITALS: BP 122/78
[2021-05-21 13:39] VITALS: BP 126/78
[2021-05-21] MEDS ORDERED: VANCOMYCIN 1GM/250ML 250 ML IV SCH (20:00)
== END 2021-05-21 15:43 | disposition home or self-care (01) | DRG 420 ==
LOC: ER 08:20 → TELE 13:17 → TELE-CENTR 05-20 12:57
PROVIDERS: ADMIT Internal Medicine; ATTEND Internal Medicine
DX: E10.10 Type 1 diabetes mellitus with ketoacidosis without coma (principal); N17.0 Acute kidney failure with tubular necrosis; R65.10 Systemic inflammatory response syndrome (SIRS) of non-infectious origin without acute organ dysfunction; R78.81 Bacteremia; I69.954 Hemiplegia and hemiparesis following unspecified cerebrovascular disease affecting left non-dominant side; Z20.822 Contact with and (suspected) exposure to COVID-19; F20.9 Schizophrenia, unspecified; Z79.4 Long term (current) use of insulin
CPT/HCPCS: 36415; 36600; 71045; 74176; 80048; 80053; 80202; 80307; 81001; 82010; 82805; 82962; 83735; 83930; 84100; 85025; 87040; 87081; 87086; 87088; 87426; 96365; 96372; 96375; 99291; G0378; J1815; J2405

== ENCOUNTER 2021-08-21 12:14 | Inpatient (IN) | payer MEDICAID ==
[~2021-08-21] VITALS: Ht 182.9 cm
[2021-08-21] MEDS ORDERED: ONDANSETRON HCL 4 MG/2 ML VIAL ONE (13:42)
[2021-08-21 13:43] LABS: Basophils # (auto) 0.2 10 ^3/uL (0-0.2); Eosinophils # (auto) 0 10 ^3/uL (0-0.8); Hematocrit 37.9 % (41.0-53.0); Hemoglobin 12.3 g/dL (13.5-17.5); Lymphocytes % (auto) 4.8 % (10.0-50.0); Mean Corpuscular Hemoglobin 27.5 pg (28.0-32.0); Mean Corpuscular Hgb Conc. 32.3 g/dL (32.0-36.0); Monocytes # (auto) 0.5 10 ^3/uL (0-1.3); Monocytes % (auto) 2.5 % (0.0-12.0); Neutrophils # (auto) 18.5 10 ^3/uL (1.6-8.6); Neutrophils % (auto) 91.7 % (37.0-80.0); Red Blood Cells 4.46 10^6/uL (4.5-5.90); Red Cell Distribution Width 17.1 % (11.8-14.3); White Blood Cell 20.2 10^3/uL (4.4-10.8)
[2021-08-21] MEDS ORDERED: SODIUM CHLORIDE 0.9% 1,000 ML IV ONE ×2 (13:45→14:00)
[2021-08-21] MEDS ORDERED: LACTATED RINGER'S 1,000 ML IV ONE (13:45)
[2021-08-21] MEDS ORDERED: ONDANSETRON HCL 4 MG/2 ML VIAL IV ONE ×2 (14:00→20:45)
[2021-08-21 14:15] LABS: Phosphorus 3.2 mg/dL (2.5-4.90)
[2021-08-21 14:17] LABS: INR 0.98 (0.9-1.15); Partial Thromboplastin Time 23.5 sec (23.6-33.0)
[2021-08-21 14:47] LABS: Albumin 4.1 g/dL (3.4-5.0); Potassium 4.1 mmol/L (3.5-5.1)
[2021-08-21 14:49] LABS: Bilirubin, Total 0.5 mg/dL (0.2-1.0); Total Protein 9.3 g/dL (6.4-8.2)
[2021-08-21] MEDS ORDERED: cefTRIAXone 1GM/50ML D5W 50 ML IV ONE (15:45)
[2021-08-21] MEDS ORDERED: METOCLOPRAMIDE HCL 5MG/ml INJ 2ml VIAL IV ONE (16:00)
[2021-08-21 16:02] LABS: Urine Bacteria NONE SEEN /hpf (None Seen); Urine Blood Negative /uL (Negative); Urine WBC <1 /hpf (0 - 3)
[2021-08-21] MEDS ORDERED: InsuLIN REG 1unit/0.01ml Soln (100units/ml) IV ONE (16:45)
[2021-08-21] MEDS ORDERED: diphenhdrAMINE HCL 50 MG/1 ML VL IV ONE (20:45)
[2021-08-21] MEDS ORDERED: SODIUM CHLORIDE 0.9% 1,000 ML IV SCH (22:30)
[2021-08-21] MEDS ORDERED: ONDANSETRON HCL 4 MG/2 ML VIAL IV PRN (22:30)
[2021-08-21] MEDS ORDERED: D5W/SOD CHLO 0.9% 1,000 ML IV SCH (22:30)
[2021-08-21] MEDS ORDERED: InsuLIN R (HUMAN) 100 UNITS in SODIUM CHL 0.9% 99 ML IV SCH (22:30)
[2021-08-21] MEDS ORDERED: DEXTROSE (50%) 50ML SYRG IV PRN (22:30)
[2021-08-21] MEDS ORDERED: MORPHINE SULFATE INJ 2 MG/ml SYRG IV PRN (22:30)
[2021-08-21 23:41] LABS: Magnesium 1.9 mg/dL (1.6-2.6); Phosphorus 3.5 mg/dL (2.5-4.90)
[2021-08-21] MEDS: ACCU-CHEK COMFORT CURVE STRIP VI SCH (23:46)
[2021-08-22] VITALS (26 sets, daily range): BP systolic 129–166; BP diastolic 78–103
[2021-08-22] MEDS: ACCU-CHEK COMFORT CURVE STRIP VI SCH ×13 (01:30→21:53)
[2021-08-22 02:19] LABS: BUN/Creatinine Ratio 19.7; Calcium 9.7 mg/dL (8.5-10.1); Potassium 3.8 mmol/L (3.5-5.1)
[2021-08-22 03:44] LABS: Basophils # (auto) 0.1 10 ^3/uL (0-0.2); Eosinophils # (auto) 0 10 ^3/uL (0-0.8); Neutrophils # (auto) 22.1 10 ^3/uL (1.6-8.6); White Blood Cell 24.9 10^3/uL (4.4-10.8)
[2021-08-22 03:46] LABS: Basophils % (auto) 0.4 % (0.0-2.0); Hematocrit 34.3 % (41.0-53.0); Hemoglobin 11.2 g/dL (13.5-17.5); Lymphocytes # (auto) 1.4 10 ^3/uL (0.4-5.4); Lymphocytes % (auto) 5.7 % (10.0-50.0); Mean Corpuscular Hemoglobin 27.8 pg (28.0-32.0); Mean Corpuscular Hgb Conc. 32.7 g/dL (32.0-36.0); Monocytes # (auto) 1.3 10 ^3/uL (0-1.3); Monocytes % (auto) 5.1 % (0.0-12.0); Neutrophils % (auto) 88.8 % (37.0-80.0); Red Blood Cells 4.04 10^6/uL (4.5-5.90)
[2021-08-22 04:03] LABS: BUN/Creatinine Ratio 21.2; Calcium 9.9 mg/dL (8.5-10.1); Potassium 4.1 mmol/L (3.5-5.1)
[2021-08-22] MEDS ORDERED: ONDANSETRON HCL 4 MG/2 ML VIAL ONE (05:30)
[2021-08-22] MEDS: ONDANSETRON HCL 4 MG/2 ML VIAL IV PRN ×3 (05:30→18:23)
[2021-08-22] MEDS ORDERED: D5W/SOD CHL 0.45% 1,000 ML IV SCH (09:45)
[2021-08-22] MEDS: SODIUM CHLORIDE 0.9% 1,000 ML IV SCH ×3 (10:15→23:43)
[2021-08-22] MEDS ORDERED: DEXTROSE (50%) 50ML SYRG IV PRN (10:15)
[2021-08-22 10:39] LABS: BUN/Creatinine Ratio 20.1; Calcium 9.6 mg/dL (8.5-10.1); Potassium 4.5 mmol/L (3.5-5.1)
[2021-08-22] MEDS: InsuLIN REG 1unit/0.01ml Soln (100units/ml) SC SCH ×4 (11:19→22:00)
[2021-08-22] MEDS ORDERED: BUSP10TA90 PO (11:31)
[2021-08-22] MEDS ORDERED: DOXE10CA PO (11:32)
[2021-08-22] MEDS: CLINDAMYCIN 600MG IV 50 ML IV SCH ×2 (12:46→21:45)
[2021-08-22 14:42] LABS: Calcium 9.2 mg/dL (8.5-10.1); Potassium 3.7 mmol/L (3.5-5.1)
[2021-08-22 14:44] LABS: BUN/Creatinine Ratio 23.6
[2021-08-22 18:43] LABS: BUN/Creatinine Ratio 22.8; Potassium 3.2 mmol/L (3.5-5.1)
[2021-08-22] MEDS: PANTOPRAZOLE 40 MG TAB PO SCH (21:45)
[2021-08-22 22:41] LABS: BUN/Creatinine Ratio 22.3; Calcium 9.5 mg/dL (8.5-10.1); Potassium 3.2 mmol/L (3.5-5.1)
[2021-08-23 03:19] LABS: BUN/Creatinine Ratio 20.5; Potassium 3.3 mmol/L (3.5-5.1)
[2021-08-23] MEDS: ACCU-CHEK COMFORT CURVE STRIP VI SCH ×3 (04:05→12:06)
[2021-08-23] MEDS: InsuLIN REG 1unit/0.01ml Soln (100units/ml) SC SCH ×3 (04:07→12:06)
[2021-08-23 05:00] VITALS: BP 160/96
[2021-08-23] MEDS: CLINDAMYCIN 600MG IV 50 ML IV SCH (05:26)
[2021-08-23 06:00] LABS: Basophils # (auto) 0.2 10 ^3/uL (0-0.2); Eosinophils # (auto) 0.1 10 ^3/uL (0-0.8); Eosinophils % (auto) 0.3 % (0.0-7.0); Hematocrit 30.4 % (41.0-53.0); Lymphocytes # (auto) 1.9 10 ^3/uL (0.4-5.4); Lymphocytes % (auto) 9.4 % (10.0-50.0); Mean Corpuscular Hemoglobin 27.6 pg (28.0-32.0); Mean Corpuscular Volume 83.7 fL (80.0-100.0); Monocytes # (auto) 1.5 10 ^3/uL (0-1.3); Monocytes % (auto) 7.4 % (0.0-12.0); Neutrophils # (auto) 16.7 10 ^3/uL (1.6-8.6); Neutrophils % (auto) 81.9 % (37.0-80.0); Red Blood Cells 3.63 10^6/uL (4.5-5.90); Red Cell Distribution Width 16.9 % (11.8-14.3); White Blood Cell 20.4 10^3/uL (4.4-10.8)
[2021-08-23] MEDS: SODIUM CHLORIDE 0.9% 1,000 ML IV SCH ×2 (06:15→12:55)
[2021-08-23 09:03] VITALS: BP 126/88
[2021-08-23] MEDS ORDERED: INSULIN LANTUS (GLARGINE) 1 /0.01ml (100units/ml) SC SCH (10:00)
[2021-08-23] MEDS: PANTOPRAZOLE 40 MG TAB PO SCH (11:08)
[2021-08-23] MEDS: POTASSIUM CHL 20MEQ/100ML 100 ML IV SCH ×2 (12:07→14:16)
[2021-08-23] MEDS ORDERED: INSU1INJ19 SC (13:57)
[2021-08-23] MEDS ORDERED: INSU100I44 SC (13:57)
[2021-08-23] MEDS ORDERED: CLIN300C8 PO (13:58)
[2021-08-23 14:00] VITALS: BP 131/86
[2021-08-23] MEDS ORDERED: POTASSIUM EFFERVESENT TAB 25 MEQ PO ONE (14:00)
[2021-08-23 17:00] VITALS: BP 146/90
== END 2021-08-23 15:32 | disposition home or self-care (01) | DRG 420 ==
LOC: ER 12:14 → EDBD 12:14 → ICU WEST 22:18 → TELE-CENTR 08-22 16:25
PROVIDERS: ADMIT Nurse Practitioner Family; ATTEND Nurse Practitioner Family
DX: E10.10 Type 1 diabetes mellitus with ketoacidosis without coma (principal); N17.9 Acute kidney failure, unspecified; E87.0 Hyperosmolality and hypernatremia; E10.22 Type 1 diabetes mellitus with diabetic chronic kidney disease; D72.829 Elevated white blood cell count, unspecified; E86.0 Dehydration; F12.90 Cannabis use, unspecified, uncomplicated; F17.210 Nicotine dependence, cigarettes, uncomplicated; F20.9 Schizophrenia, unspecified; Z20.822 Contact with and (suspected) exposure to COVID-19; E87.6 Hypokalemia; N18.30 Chronic kidney disease, stage 3 unspecified; Z56.0 Unemployment, unspecified; Z79.82 Long term (current) use of aspirin; Z86.73 Personal history of transient ischemic attack (TIA), and cerebral infarction without residual deficits; Z90.01 Acquired absence of eye; Z91.19 Patient's noncompliance with other medical treatment and regimen; Z79.4 Long term (current) use of insulin
CPT/HCPCS: 36415; 36600; 71045; 74176; 76775; 80048; 80053; 81001; 82010; 82805; 82962; 83605; 83690; 83735; 83930; 84100; 84484; 85025; 85610; 85730; 87040; 87081; 93005; 96361; 96365; 96375; 96376; G0378; J0696; J1815; J2405; J3480; J3490

== ENCOUNTER 2021-10-11 19:58 | Inpatient (IN) | payer MEDICAID ==
[~2021-10-11] VITALS: Ht 185.4 cm; Wt 72.3 kg
[~2021-10-11 19:58] MED LIST changes: +BUSP10TA90 PO; +CLIN300C8 PO; +DOXE10CA PO; -DOXE10CA34 PO; -LINE1TAB6 PO
[2021-10-11] MEDS ORDERED: METOCLOPRAMIDE HCL 5MG/ml INJ 2ml VIAL IV ONE (21:45)
[2021-10-11] MEDS ORDERED: SODIUM CHLORIDE 0.9% 1,000 ML IV ONE (21:45)
[2021-10-11 22:58] LABS: Hematocrit 40.6 % (41.0-53.0); Hemoglobin 12.9 g/dL (13.5-17.5); Mean Corpuscular Hemoglobin 24.4 pg (28.0-32.0); Mean Corpuscular Hgb Conc. 31.8 g/dL (32.0-36.0); Mean Corpuscular Volume 76.5 fL (80.0-100.0); Red Blood Cells 5.31 10^6/uL (4.5-5.90); Red Cell Distribution Width 18.4 % (11.8-14.3); White Blood Cell 29.9 10^3/uL (4.4-10.8)
[2021-10-11 23:00] LABS: Basophils % (manual) 0 (0.0-2.0); Blast Cells 0; Eosinophils % (manual) 0 (0-7); Metamyelocytes % 0; Promyelocytes % 0; Reactive Lymphocytes 0
[2021-10-11 23:15] LABS: Albumin 4.4 g/dL (3.4-5.0); Calcium 9.5 mg/dL (8.5-10.1)
[2021-10-11 23:19] LABS: BUN/Creatinine Ratio 26.1; Bilirubin, Total 0.8 mg/dL (0.2-1.0); Total Protein 9.7 g/dL (6.4-8.2)
[2021-10-11 23:35] LABS: Potassium 2.8 mmol/L (3.5-5.1)
[2021-10-11 23:56] LABS: Band Neutrophils % (manual) 8; Lymphocytes % (manual) 6 (10.0-50.0); Monocytes % (manual) 6 (0-12); Myelocytes % 1
[2021-10-12] MEDS ORDERED: SODIUM CHLORIDE 0.9% 1,000 ML IV ONE
[2021-10-12] MEDS: POTASSIUM CHL 20MEQ/100ML 100 ML IV SCH ×2 (00:11→02:25)
[2021-10-12] MEDS ORDERED: PANTOPRAZOLE 40 MG/10 ML VIAL INJ IV ONE (00:15)
[2021-10-12] MEDS ORDERED: cefTRIAXone SOD 1,000 MG VL IV ONE (00:15)
[2021-10-12] MEDS ORDERED: HYDROcodone-ACET 5/325MG TAB PO PRN (00:30)
[2021-10-12] MEDS ORDERED: ONDANSETRON HCL 4 MG/2 ML VIAL IV PRN (00:30)
[2021-10-12] MEDS ORDERED: ACETAMINOPHEN 325 MG TAB PO PRN (00:30)
[2021-10-12] MEDS ORDERED: DEXTROSE (50%) 50ML SYRG IV PRN (00:30)
[2021-10-12] MEDS: SODIUM CHLORIDE 0.9% 1,000 ML IV SCH ×3 (03:58→15:06)
[2021-10-12 04:38] LABS: Urine Bacteria NONE SEEN /hpf (None Seen); Urine Blood Negative /uL (Negative); Urine Hyaline Cast MOD /lpf (0 - 2); Urine WBC 2 /hpf (0 - 3)
[2021-10-12 04:53] LABS: Alcohol, Urine < 3.0 mg/dL (0-10); Amphetamine Screen, Urine NEGATIVE (NEGATIVE); Barbiturate Scree,Urine NEGATIVE (NEGATIVE); Benzodiazephine Screen, Urine NEGATIVE (NEGATIVE); Cannabinoid Screen, Urine POSITIVE (NEGATIVE); Cocaine Screen, Urine NEGATIVE (NEGATIVE); Phencyclidine Screen, Urine NEGATIVE (NEGATIVE)
[2021-10-12 04:59] LABS: Opiate Scree,Urine NEGATIVE (NEGATIVE)
[2021-10-12] MEDS: ACCU-CHEK COMFORT CURVE STRIP VI SCH ×4 (06:12→23:52)
[2021-10-12] MEDS: InsuLIN REG 1unit/0.01ml Soln (100units/ml) SC SCH ×4 (06:17→23:55)
[2021-10-12] MEDS ORDERED: PANTOPRAZOLE 40 MG/10 ML VIAL INJ IV SCH (10:00)
[2021-10-12 10:12] LABS: Basophils # (auto) 0.1 10 ^3/uL (0-0.2); Eosinophils # (auto) 0 10 ^3/uL (0-0.8); Hematocrit 33.6 % (41.0-53.0); Lymphocytes # (auto) 1.1 10 ^3/uL (0.4-5.4); Mean Corpuscular Hemoglobin 24.1 pg (28.0-32.0); White Blood Cell 18.7 10^3/uL (4.4-10.8)
[2021-10-12 10:13] LABS: Basophils % (auto) 0.4 % (0.0-2.0); Hemoglobin 10.3 g/dL (13.5-17.5); Mean Corpuscular Hgb Conc. 30.7 g/dL (32.0-36.0); Mean Corpuscular Volume 78.4 fL (80.0-100.0); Monocytes # (auto) 1.8 10 ^3/uL (0-1.3); Monocytes % (auto) 9.6 % (0.0-12.0); Neutrophils # (auto) 15.7 10 ^3/uL (1.6-8.6); Red Blood Cells 4.28 10^6/uL (4.5-5.90); Red Cell Distribution Width 18.3 % (11.8-14.3)
[2021-10-12 10:34] LABS: Albumin 3.2 g/dL (3.4-5.0); BUN/Creatinine Ratio 23.4; Calcium 7.7 mg/dL (8.5-10.1); Potassium 3.4 mmol/L (3.5-5.1)
[2021-10-12 10:36] LABS: Bilirubin, Total 0.6 mg/dL (0.2-1.0); Total Protein 6.9 g/dL (6.4-8.2)
[2021-10-12] MEDS ORDERED: TEMAZEPAM 15 MG CAP PO ONE (20:30)
[2021-10-12 22:00] VITALS: BP 126/67
[2021-10-12] MEDS ORDERED: cefTRIAXone 1GM/50ML D5W 50 ML IV SCH (22:00)
[2021-10-13] MEDS: ACCU-CHEK COMFORT CURVE STRIP VI SCH ×2 (05:01→11:51)
[2021-10-13] MEDS: InsuLIN REG 1unit/0.01ml Soln (100units/ml) SC SCH ×2 (05:01→11:57)
[2021-10-13] MEDS: SODIUM CHLORIDE 0.9% 1,000 ML IV SCH (05:01)
[2021-10-13 05:03] VITALS: BP 104/68
[2021-10-13 07:00] LABS: Basophils # (auto) 0 10 ^3/uL (0-0.2); Basophils % (auto) 0.4 % (0.0-2.0); Hemoglobin 10.5 g/dL (13.5-17.5); Lymphocytes # (auto) 1.9 10 ^3/uL (0.4-5.4); Mean Corpuscular Hemoglobin 24.6 pg (28.0-32.0); Monocytes # (auto) 1.2 10 ^3/uL (0-1.3)
[2021-10-13 07:04] LABS: Eosinophils # (auto) 0.1 10 ^3/uL (0-0.8); Eosinophils % (auto) 1.1 % (0.0-7.0); Lymphocytes % (auto) 19.6 % (10.0-50.0); Mean Corpuscular Volume 77.1 fL (80.0-100.0); Monocytes % (auto) 12.4 % (0.0-12.0); Neutrophils # (auto) 6.6 10 ^3/uL (1.6-8.6); Neutrophils % (auto) 66.5 % (37.0-80.0); Red Blood Cells 4.28 10^6/uL (4.5-5.90); Red Cell Distribution Width 17.7 % (11.8-14.3); White Blood Cell 9.9 10^3/uL (4.4-10.8)
[2021-10-13 07:07] LABS: Potassium 3.2 mmol/L (3.5-5.1)
[2021-10-13 07:14] LABS: Albumin 3.2 g/dL (3.4-5.0); BUN/Creatinine Ratio 17.3; Bilirubin, Total 0.7 mg/dL (0.2-1.0); Calcium 8.5 mg/dL (8.5-10.1); Magnesium 2.6 mg/dL (1.6-2.6); Total Protein 7.1 g/dL (6.4-8.2)
[2021-10-13 09:00] VITALS: BP 127/73
[2021-10-13] MEDS ORDERED: POTASSIUM CHL 20MEQ/100ML 100 ML IV SCH (09:45)
[2021-10-13] MEDS ORDERED: PANTOPRAZOLE 40 MG TAB PO ONE (11:00)
[2021-10-13] MEDS ORDERED: POTASSIUM CHL 20 Meq TABLET PO ONE (11:00)
[2021-10-13 13:00] VITALS: BP 129/75
[2021-10-13] MEDS ORDERED: fentaNYL CITRATE 100 MCG/2 ML VL ONE ×2 (13:49→14:22)
[2021-10-13] MEDS ORDERED: MIDAZOLAM HCL 2MG/2ML 2ml VIAL (1mg/ml) ONE (13:49)
[2021-10-13] MEDS ORDERED: PROPOFOL 10 MG/ML 20 ML IV ONE (13:51)
[2021-10-13] MEDS ORDERED: PANT40TA2 PO ×2 (13:51→14:44)
[2021-10-13] MEDS ORDERED: FAMOTIDINE (10MG/ML) 2ML VL IV ONE (14:04)
[2021-10-13] MEDS ORDERED: INSULIN LANTUS (GLARGINE) 1 /0.01ml (100units/ml) SC ONE (14:30)
[2021-10-13] MEDS ORDERED: SUCR1TAB22 PO (14:44)
[2021-10-13] MEDS ORDERED: METO-281 PO (14:44)
[2021-10-13] MEDS ORDERED: SODIUM CHLORIDE 0.9% 1,000 ML IV SCH (14:45)
[2021-10-13] MEDS ORDERED: ACCU-CHEK COMFORT CURVE STRIP VI ONE (15:00)
[2021-10-13] MEDS ORDERED: HYDROmorphone HCL 2 MG/ML VL/or syr IV PRN (15:00)
[2021-10-13] MEDS ORDERED: DEXTROSE (50%) 50ML SYRG IV PRN (15:00)
[2021-10-13] MEDS ORDERED: ONDANSETRON HCL 4 MG/2 ML VIAL IV PRN (15:00)
[2021-10-13 16:26] VITALS: BP 129/75
[2021-10-13 17:00] VITALS: BP 117/79
[2021-10-13] MEDS ORDERED: SUCRALFATE 1 GM TAB PO SCH (17:00)
[2021-10-13] MEDS ORDERED: ACCU-CHEK COMFORT CURVE STRIP VI SCH (18:00)
[2021-10-13] MEDS ORDERED: InsuLIN REG 1unit/0.01ml Soln (100units/ml) SC SCH (18:00)
[2021-10-13] MEDS ORDERED: METOCLOPRAMIDE HCL 5MG/ml INJ 2ml VIAL IV SCH (22:00)
[2021-10-13] MEDS ORDERED: PANTOPRAZOLE 40 MG TAB PO SCH (22:00)
[2021-10-13] MEDS ORDERED: INSULIN LANTUS (GLARGINE) 1 /0.01ml (100units/ml) SC SCH (22:00)
[2021-10-14] MEDS ORDERED: PANTOPRAZOLE 40 MG TAB PO SCH (10:00)
== END 2021-10-13 18:42 | disposition home or self-care (01) | DRG 241 ==
LOC: ER 19:58 → OVERFLOW 10-12 00:29 → WEST WING 10-12 16:00
PROVIDERS: ADMIT Nurse Practitioner; ATTEND Internal Medicine
PROC: 0DB68ZX Excision of Stomach, Via Natural or Artificial Opening Endoscopic, Diagnostic (ICD-10-PCS; 2021-10-13)
PROC: 0DB58ZX Excision of Esophagus, Via Natural or Artificial Opening Endoscopic, Diagnostic (ICD-10-PCS; 2021-10-13)
PROC: 0DB98ZX Excision of Duodenum, Via Natural or Artificial Opening Endoscopic, Diagnostic (ICD-10-PCS; principal; 2021-10-13 14:12)
DX: K29.70 Gastritis, unspecified, without bleeding (principal); N17.0 Acute kidney failure with tubular necrosis; E10.10 Type 1 diabetes mellitus with ketoacidosis without coma; I69.954 Hemiplegia and hemiparesis following unspecified cerebrovascular disease affecting left non-dominant side; K22.10 Ulcer of esophagus without bleeding; E10.22 Type 1 diabetes mellitus with diabetic chronic kidney disease; D72.829 Elevated white blood cell count, unspecified; E86.0 Dehydration; E10.43 Type 1 diabetes mellitus with diabetic autonomic (poly)neuropathy; E87.6 Hypokalemia; F12.90 Cannabis use, unspecified, uncomplicated; F20.9 Schizophrenia, unspecified; K31.84 Gastroparesis; Z20.822 Contact with and (suspected) exposure to COVID-19; K44.9 Diaphragmatic hernia without obstruction or gangrene; N17.9 Acute kidney failure, unspecified; N18.9 Chronic kidney disease, unspecified; Z79.4 Long term (current) use of insulin; Z91.19 Patient's noncompliance with other medical treatment and regimen
CPT/HCPCS: 36415; 71045; 74176; 80053; 80307; 81001; 82962; 83036; 83605; 83690; 83735; 85007; 85025; 85027; 87040; 96361; 96365; 96375; 96376; 99291; C9113; G0378; J0696; J1815; J2250; J2405; J2704; J3480; J3490

== ENCOUNTER 2022-04-11 17:38 | Inpatient (IN) | payer MEDICAID ==
[~2022-04-11] VITALS: Ht 188 cm; Wt 74.4 kg
[~2022-04-11 17:38] MED LIST changes: -ASPI1TAB20 PO; +METO-281 PO; +SUCR1TAB22 PO
[2022-04-11 18:41] LABS: Urine Bacteria NONE SEEN /hpf (None Seen); Urine Blood Negative /uL (Negative); Urine Specific Gravity 1.031 (1.001-1.035); Urine WBC 1 /hpf (0 - 3)
[2022-04-11] MEDS ORDERED: METOCLOPRAMIDE HCL 5MG/ml INJ 2ml VIAL IM ONE (19:00)
[2022-04-11 19:13] LABS: Basophils # (auto) 0 10 ^3/uL (0-0.2); Basophils % (auto) 0.2 % (0.0-2.0); Eosinophils # (auto) 0 10 ^3/uL (0-0.8); Hematocrit 43.1 % (41.0-53.0); Hemoglobin 13.4 g/dL (13.5-17.5); Lymphocytes # (auto) 0.9 10 ^3/uL (0.4-5.4); Lymphocytes % (auto) 3.8 % (10.0-50.0); Mean Corpuscular Hemoglobin 23.3 pg (28.0-32.0); Mean Corpuscular Hgb Conc. 31.2 g/dL (32.0-36.0); Mean Corpuscular Volume 74.8 fL (80.0-100.0); Monocytes # (auto) 1.8 10 ^3/uL (0-1.3); Monocytes % (auto) 7.7 % (0.0-12.0); Neutrophils # (auto) 20.8 10 ^3/uL (1.6-8.6); Neutrophils % (auto) 88.3 % (37.0-80.0); Red Blood Cells 5.76 10^6/uL (4.5-5.90); White Blood Cell 23.5 10^3/uL (4.4-10.8)
[2022-04-11 19:14] LABS: Red Cell Distribution Width 20.2 % (11.8-14.3)
[2022-04-11 19:24] LABS: Albumin 4.7 g/dL (3.4-5.0); Calcium 9.9 mg/dL (8.5-10.1)
[2022-04-11 19:27] LABS: Bilirubin, Total 0.6 mg/dL (0.2-1.0); Total Protein 9.3 g/dL (6.4-8.2)
[2022-04-11] MEDS ORDERED: SODIUM CHLORIDE 0.9% 1,000 ML IV ONE (19:45)
[2022-04-11] MEDS ORDERED: METOCLOPRAMIDE HCL 5MG/ml INJ 2ml VIAL IV ONE (20:00)
[2022-04-11] MEDS ORDERED: PANTOPRAZOLE 40 MG/10 ML VIAL INJ IV ONE (20:00)
[2022-04-11] MEDS ORDERED: HYDROcodone-ACET 5/325MG TAB PO PRN (20:30)
[2022-04-11] MEDS ORDERED: DOCUSATE SOD 100 MG CAP PO PRN (20:30)
[2022-04-11] MEDS ORDERED: LORazepam 0.5 MG TAB PO PRN (20:30)
[2022-04-11] MEDS ORDERED: ACETAMINOPHEN 325 MG TAB PO PRN (20:30)
[2022-04-11] MEDS ORDERED: ONDANSETRON HCL 4 MG/2 ML VIAL IV PRN (20:30)
[2022-04-11] MEDS ORDERED: TEMAZEPAM 15 MG CAP PO PRN (20:30)
[2022-04-11] MEDS ORDERED: MORPHINE SULFATE INJ 2 MG/ml SYRG IV PRN (20:30)
[2022-04-11] MEDS ORDERED: DEXTROSE (50%) 50ML SYRG IV PRN (20:30)
[2022-04-11] MEDS ORDERED: MAALOX PLUS or MAALOX 30 ML PO PRN (20:30)
[2022-04-11] MEDS: POTASSIUM CHL 20MEQ/100ML 100 ML IV SCH (22:14)
[2022-04-11] MEDS: InsuLIN REG 1unit/0.01ml Soln (100units/ml) SC SCH (22:15)
[2022-04-11] MEDS: ACCU-CHEK COMFORT CURVE STRIP VI SCH (22:16)
[2022-04-11] MEDS: cefTRIAXone 1GM/50ML D5W 50 ML IV SCH (22:53)
[2022-04-11] MEDS: SODIUM CHLORIDE 0.9% 1,000 ML IV SCH (22:54)
[2022-04-12] VITALS (8 sets, daily range): BP systolic 112–153; BP diastolic 65–99
[2022-04-12] MEDS: metroNIDAZOLE 500MG/100ML 100 ML IV SCH ×4 (00:06→11:31)
[2022-04-12] MEDS: POTASSIUM CHL 20MEQ/100ML 100 ML IV SCH (00:33)
[2022-04-12] MEDS: SODIUM CHLORIDE 0.9% 1,000 ML IV SCH ×2 (02:33→16:12)
[2022-04-12] MEDS: InsuLIN REG 1unit/0.01ml Soln (100units/ml) SC SCH ×4 (06:19→22:05)
[2022-04-12] MEDS: ACCU-CHEK COMFORT CURVE STRIP VI SCH ×4 (06:19→22:06)
[2022-04-12 06:46] LABS: BUN/Creatinine Ratio 23.9; Calcium 8.4 mg/dL (8.5-10.1); Potassium 3.6 mmol/L (3.5-5.1)
[2022-04-12 09:04] LABS: Eosinophils # (auto) 0 10 ^3/uL (0-0.8); Hemoglobin 12.6 g/dL (13.5-17.5); Lymphocytes # (auto) 1.8 10 ^3/uL (0.4-5.4); Monocytes # (auto) 1.9 10 ^3/uL (0-1.3); Neutrophils # (auto) 18.4 10 ^3/uL (1.6-8.6); Red Cell Distribution Width 19.4 % (11.8-14.3); White Blood Cell 22.2 10^3/uL (4.4-10.8)
[2022-04-12 09:06] LABS: Basophils # (auto) 0 10 ^3/uL (0-0.2); Basophils % (auto) 0.1 % (0.0-2.0); Hematocrit 39.8 % (41.0-53.0); Lymphocytes % (auto) 8.3 % (10.0-50.0); Mean Corpuscular Hemoglobin 23.6 pg (28.0-32.0); Mean Corpuscular Hgb Conc. 31.7 g/dL (32.0-36.0); Mean Corpuscular Volume 74.3 fL (80.0-100.0); Monocytes % (auto) 8.6 % (0.0-12.0); Red Blood Cells 5.36 10^6/uL (4.5-5.90)
[2022-04-12] MEDS: cefTRIAXone 1GM/50ML D5W 50 ML IV SCH (10:17)
[2022-04-12] MEDS ORDERED: INSULIN LANTUS (GLARGINE) 1 /0.01ml (100units/ml) SC ONE (13:00)
[2022-04-12] MEDS ORDERED: traZODone HCL 50 MG TAB PO SCH (22:00)
[2022-04-12] MEDS ORDERED: TRAZODONE HCL 150 MG PO SCH (22:00)
[2022-04-12] MEDS ORDERED: ARIPIPRAZOLE PO SCH (22:00)
[2022-04-12] MEDS ORDERED: ATORVASTATIN 20 MG TAB PO SCH (22:00)
[2022-04-12] MEDS ORDERED: DOXEPIN 100 MG PO SCH (22:00)
[2022-04-12] MEDS ORDERED: DOXEPIN HCL 10 MG CAP PO SCH (22:00)
[2022-04-12] MEDS: busPIRone HCL 10 MG TAB PO SCH (22:02)
[2022-04-12] MEDS: DOCUSATE SOD 100 MG CAP PO SCH (22:02)
[2022-04-12] MEDS: METOCLOPRAMIDE HCL 5MG/ml INJ 2ml VIAL IV SCH (22:07)
[2022-04-13] MEDS: SODIUM CHLORIDE 0.9% 1,000 ML IV SCH ×2 (03:22→12:19)
[2022-04-13 05:00] VITALS: BP 115/69
[2022-04-13] MEDS: METOCLOPRAMIDE HCL 5MG/ml INJ 2ml VIAL IV SCH ×2 (05:16→14:36)
[2022-04-13] MEDS: InsuLIN REG 1unit/0.01ml Soln (100units/ml) SC SCH ×2 (06:07→11:33)
[2022-04-13] MEDS: ACCU-CHEK COMFORT CURVE STRIP VI SCH ×2 (06:08→11:25)
[2022-04-13 07:50] VITALS: BP 140/71
[2022-04-13 08:59] VITALS: BP 140/71
[2022-04-13] MEDS ORDERED: PATIENTS OWN MEDICATION (Atorvastatin Calcium 1 TAB) PO SCH (10:00)
[2022-04-13] MEDS: DOCUSATE SOD 100 MG CAP PO SCH (10:19)
[2022-04-13] MEDS: busPIRone HCL 10 MG TAB PO SCH (10:19)
[2022-04-13 10:57] LABS: Albumin 3.5 g/dL (3.4-5.0); Calcium 8.1 mg/dL (8.5-10.1); Potassium 3.8 mmol/L (3.5-5.1)
[2022-04-13 11:00] LABS: BUN/Creatinine Ratio 13.1; Bilirubin, Total 0.6 mg/dL (0.2-1.0); Total Protein 7.1 g/dL (6.4-8.2)
[2022-04-13 12:59] VITALS: BP 146/82
[2022-04-13 14:33] LABS: Eosinophils # (auto) 0.1 10 ^3/uL (0-0.8); Red Blood Cells 4.75 10^6/uL (4.5-5.90)
[2022-04-13 14:35] LABS: Basophils # (auto) 0 10 ^3/uL (0-0.2); Basophils % (auto) 0.3 % (0.0-2.0); Hemoglobin 11.5 g/dL (13.5-17.5); Lymphocytes # (auto) 1.8 10 ^3/uL (0.4-5.4); Lymphocytes % (auto) 17.2 % (10.0-50.0); Mean Corpuscular Hemoglobin 24.1 pg (28.0-32.0); Mean Corpuscular Hgb Conc. 31.9 g/dL (32.0-36.0); Mean Corpuscular Volume 75.7 fL (80.0-100.0); Monocytes # (auto) 1.2 10 ^3/uL (0-1.3); Monocytes % (auto) 11.4 % (0.0-12.0); Neutrophils # (auto) 7.4 10 ^3/uL (1.6-8.6); Neutrophils % (auto) 70.1 % (37.0-80.0); Red Cell Distribution Width 19.2 % (11.8-14.3); White Blood Cell 10.6 10^3/uL (4.4-10.8)
[2022-04-13 15:54] VITALS: BP 146/82
[2022-04-13 16:44] VITALS: BP 138/87
[2022-04-13] MEDS ORDERED: INSULIN LANTUS (GLARGINE) 1 /0.01ml (100units/ml) SC SCH ×2 (22:00)
== END 2022-04-13 17:25 | disposition home or self-care (01) | DRG 48 ==
LOC: ER 17:38 → OVERFLOW 20:33 → EAST 04-12 02:15
PROVIDERS: ADMIT Hospitalist; ATTEND Student in an Organized Health Care Education/Training Program
DX: E10.43 Type 1 diabetes mellitus with diabetic autonomic (poly)neuropathy (principal); N17.9 Acute kidney failure, unspecified; E10.21 Type 1 diabetes mellitus with diabetic nephropathy; E87.8 Other disorders of electrolyte and fluid balance, not elsewhere classified; A08.4 Viral intestinal infection, unspecified; E10.22 Type 1 diabetes mellitus with diabetic chronic kidney disease; D72.829 Elevated white blood cell count, unspecified; Z20.822 Contact with and (suspected) exposure to COVID-19; K31.89 Other diseases of stomach and duodenum; E86.0 Dehydration; K31.9 Disease of stomach and duodenum, unspecified; K31.84 Gastroparesis; F20.9 Schizophrenia, unspecified; N18.4 Chronic kidney disease, stage 4 (severe); K21.00 Gastro-esophageal reflux disease with esophagitis, without bleeding; Z91.199 Patient's noncompliance with other medical treatment and regimen due to unspecified reason; Z83.3 Family history of diabetes mellitus; I69.30 Unspecified sequelae of cerebral infarction
CPT/HCPCS: 36415; 74176; 80048; 80053; 81001; 82962; 83690; 85025; 87426; 96361; 96374; 96375; C9113; G0378; J0696; J1815; J2405; J3480; J3490

== ENCOUNTER 2022-11-02 11:29 | Inpatient (IN) | payer MEDICAID ==
[~2022-11-02] VITALS: Ht 182.9 cm; Wt 66.7 kg
[~2022-11-02 11:29] MED LIST changes: +CLIN300C70 PO; -CLIN300C8 PO; -INSU100I44 SC; +INSU100I54 SC
[2022-11-02] MEDS ORDERED: SODIUM CHLORIDE 0.9% 2,000 ML IV ONE ×2 (12:30→16:15)
[2022-11-02] MEDS ORDERED: PROCHLORPERAZINE EDISYLATE 5 MG/ML 2ML VIAL IM ONE (13:00)
[2022-11-02 13:55] LABS: Basophils # (auto) 0 10 ^3/uL (0-0.2); Eosinophils # (auto) 0 10 ^3/uL (0-0.8); Lymphocytes # (auto) 1.5 10 ^3/uL (0.4-5.4); Red Cell Distribution Width 17.6 % (11.8-14.3)
[2022-11-02 13:57] LABS: Basophils % (auto) 0.1 % (0.0-2.0); Hematocrit 44.2 % (41.0-53.0); Hemoglobin 13.9 g/dL (13.5-17.5); Lymphocytes % (auto) 6.5 % (10.0-50.0); Mean Corpuscular Hemoglobin 25.2 pg (28.0-32.0); Mean Corpuscular Hgb Conc. 31.3 g/dL (32.0-36.0); Mean Corpuscular Volume 80.5 fL (80.0-100.0); Monocytes % (auto) 8.7 % (0.0-12.0); Neutrophils # (auto) 19.2 10 ^3/uL (1.6-8.6); Neutrophils % (auto) 84.7 % (37.0-80.0); Red Blood Cells 5.49 10^6/uL (4.5-5.90); White Blood Cell 22.7 10^3/uL (4.4-10.8)
[2022-11-02] MEDS ORDERED: SODIUM CHLORIDE 0.9% 1,000 ML IV ONE (14:30)
[2022-11-02 14:48] LABS: Base Excess -3.5 mmol/L (-2.0-2.0)
[2022-11-02 14:49] LABS: Albumin 4.3 g/dL (3.4-5.0); Potassium 3.3 mmol/L (3.5-5.1)
[2022-11-02 14:54] LABS: BUN/Creatinine Ratio 24.7 (10.0-20.0); Bilirubin, Total 0.6 mg/dL (0.2-1.0); Total Protein 8.5 g/dL (6.4-8.2)
[2022-11-02 16:03] LABS: Urine Bacteria NONE SEEN /hpf (None Seen); Urine Blood Negative /uL (Negative); Urine Clarity Clear (Clear); Urine Color Colorless (Yellow); Urine Protein, UAD TRACE (Negative); Urine Specific Gravity 1.013 (1.001-1.035); Urine Urobilinogen Normal (Negative); Urine WBC <1 /hpf (0 - 3)
[2022-11-02] MEDS ORDERED: SODIUM CHLORIDE 0.9% 1,000 ML IV SCH (16:30)
[2022-11-02] MEDS ORDERED: NITROGLYCERIN 0.4 MG SL TAB SL PRN ×2 (16:30→16:45)
[2022-11-02] MEDS ORDERED: POTASSIUM EFFERVESENT TAB 25 MEQ PO ONE ×2 (16:30→20:45)
[2022-11-02] MEDS ORDERED: DEXTROSE (50%) 50ML SYRG IV PRN (16:30)
[2022-11-02] MEDS ORDERED: cefTRIAXone 1GM/50ML D5W 50 ML IV ONE (16:30)
[2022-11-02] MEDS ORDERED: MORPHINE SULFATE INJ 2 MG/ml SYRG IV PRN ×2 (16:30→16:45)
[2022-11-02] MEDS ORDERED: INSULIN LANTUS (GLARGINE) 1 /0.01ml (100units/ml) SC ONE (16:30)
[2022-11-02] MEDS ORDERED: ONDANSETRON HCL 4 MG/2 ML VIAL IV ONE (16:45)
[2022-11-02 17:00] VITALS: PULSE 115; RESP 13; O2SAT 99
[2022-11-02 17:26] LABS: Lactic Acid w/Reflex 2.5 mmol/L (0.4-2.0)
[2022-11-02] MEDS: ACCU-CHEK COMFORT CURVE STRIP VI SCH ×5 (17:41→22:28)
[2022-11-02] MEDS: SODIUM CHLORIDE 0.9% 1,000 ML IV SCH (17:57)
[2022-11-02] MEDS: InsuLIN R (HUMAN) 100 UNITS in SODIUM CHL 0.9% 99 ML IV SCH ×2 (19:18→21:00)
[2022-11-02 19:30] VITALS: PULSE 100; RESP 12; O2SAT 99
[2022-11-02] MEDS: ONDANSETRON HCL 4 MG/2 ML VIAL IV PRN (19:58)
[2022-11-02] MEDS: POTASSIUM CHL 20MEQ/100ML 100 ML IV SCH ×2 (21:10→22:45)
[2022-11-02] MEDS ORDERED: SOD CHL 0.9%/ KCL 20MEQ 1,000 ML IV SCH (21:30)
[2022-11-02] MEDS: DOXEPIN HCL 100 MG PO SCH (22:00)
[2022-11-02] MEDS: busPIRone HCL 10 MG TAB PO SCH (22:05)
[2022-11-02] MEDS: METOCLOPRAMIDE HCL 10 MG TAB PO SCH (22:06)
[2022-11-02] MEDS: SUCRALFATE 1 GM TAB PO SCH (22:06)
[2022-11-02] MEDS: PANTOPRAZOLE 40 MG TAB PO SCH (22:06)
[2022-11-02] MEDS: MORPHINE SULFATE INJ 2 MG/ml SYRG IV PRN (22:07)
[2022-11-02] MEDS: HEPARIN SODIUM (PORCINE) 5000 UNITS/ML 1ML VIAL SC SCH (22:07)
[2022-11-03] MEDS: ACCU-CHEK COMFORT CURVE STRIP VI SCH ×9 (01:32→23:33)
[2022-11-03] MEDS: SODIUM CHLORIDE 0.9% 1,000 ML IV SCH ×3 (01:32→17:31)
[2022-11-03] MEDS: ONDANSETRON HCL 4 MG/2 ML VIAL IV PRN ×3 (01:42→23:33)
[2022-11-03] MEDS: MORPHINE SULFATE INJ 2 MG/ml SYRG IV PRN ×3 (01:43→23:33)
[2022-11-03 02:33] LABS: Albumin 3.9 g/dL (3.4-5.0); BUN/Creatinine Ratio 22.3 (10.0-20.0); Calcium 8.7 mg/dL (8.5-10.1); Potassium 3.1 mmol/L (3.5-5.1)
[2022-11-03 02:36] LABS: Bilirubin, Total 0.5 mg/dL (0.2-1.0); Total Protein 7.9 g/dL (6.4-8.2)
[2022-11-03 04:52] LABS: Hemoglobin 12.5 g/dL (13.5-17.5); Red Cell Distribution Width 17.5 % (11.8-14.3)
[2022-11-03 04:54] LABS: Hematocrit 39.4 % (41.0-53.0); Mean Corpuscular Hemoglobin 25.5 pg (28.0-32.0); Mean Corpuscular Hgb Conc. 31.6 g/dL (32.0-36.0); Mean Corpuscular Volume 80.6 fL (80.0-100.0); Red Blood Cells 4.89 10^6/uL (4.5-5.90); White Blood Cell 22.1 10^3/uL (4.4-10.8)
[2022-11-03 05:03] LABS: Albumin 3.7 g/dL (3.4-5.0); Calcium 8.7 mg/dL (8.5-10.1)
[2022-11-03 05:07] LABS: BUN/Creatinine Ratio 20.2 (10.0-20.0); Bilirubin, Total 0.6 mg/dL (0.2-1.0); Total Protein 7.6 g/dL (6.4-8.2)
[2022-11-03 05:12] LABS: Band Neutrophils % (manual) 0; Basophils % (manual) 0 (0.0-2.0); Blast Cells 0; Eosinophils % (manual) 0 (0-7); Metamyelocytes % 0; Myelocytes % 0; Promyelocytes % 0; Reactive Lymphocytes 0
[2022-11-03] MEDS ORDERED: DEXTROSE (50%) 50ML SYRG IV PRN (05:45)
[2022-11-03] MEDS: POTASSIUM CHL 20MEQ/100ML 100 ML IV SCH ×2 (06:22→11:06)
[2022-11-03 07:35] VITALS: PULSE 83; RESP 11; O2SAT 97
[2022-11-03] MEDS: cefTRIAXone 1GM/50ML D5W 50 ML IV SCH (09:42)
[2022-11-03] MEDS: InsuLIN REG 1unit/0.01ml Soln (100units/ml) SC SCH ×5 (09:44→23:34)
[2022-11-03 09:45] LABS: Lymphocytes % (manual) 4 (10.0-50.0); Monocytes % (manual) 5 (0-12)
[2022-11-03 09:58] LABS: Anisocytosis Slight; Platelet Estimate Adequate
[2022-11-03] MEDS ORDERED: INSULIN LANTUS (GLARGINE) 1 /0.01ml (100units/ml) SC SCH (10:00)
[2022-11-03 10:28] LABS: Magnesium 2.7 mg/dL (1.6-2.6); Phosphorus 3.2 mg/dL (2.5-4.90)
[2022-11-03] MEDS: busPIRone HCL 10 MG TAB PO SCH ×2 (11:05→11:12)
[2022-11-03] MEDS: PANTOPRAZOLE 40 MG TAB PO SCH ×2 (11:11→21:54)
[2022-11-03] MEDS: ATORVASTATIN 20 MG TAB PO SCH (11:11)
[2022-11-03] MEDS: METOCLOPRAMIDE HCL 10 MG TAB PO SCH ×2 (11:13→21:54)
[2022-11-03] MEDS: SUCRALFATE 1 GM TAB PO SCH ×2 (11:13→21:48)
[2022-11-03] MEDS: HEPARIN SODIUM (PORCINE) 5000 UNITS/ML 1ML VIAL SC SCH ×2 (11:14→21:55)
[2022-11-03 12:57] LABS: Albumin 3.3 g/dL (3.4-5.0); Calcium 8.4 mg/dL (8.5-10.1); Potassium 3.3 mmol/L (3.5-5.1)
[2022-11-03 13:00] LABS: BUN/Creatinine Ratio 17.8 (10.0-20.0); Bilirubin, Total 0.4 mg/dL (0.2-1.0); Total Protein 6.9 g/dL (6.4-8.2)
[2022-11-03 15:18] LABS: Alcohol, Urine < 3.0 mg/dL (0-10); Amphetamine Screen, Urine NEGATIVE (NEGATIVE); Barbiturate Scree,Urine NEGATIVE (NEGATIVE); Benzodiazephine Screen, Urine NEGATIVE (NEGATIVE); Cannabinoid Screen, Urine POSITIVE (NEGATIVE); Cocaine Screen, Urine NEGATIVE (NEGATIVE); Protein, Urine 30.1 mg/dL (0.0-11.9); Sodium Urine 34 mmol/L (40-220)
[2022-11-03 15:25] LABS: Creatinine, Urine 53 mg/dL (30.0-125.0); Opiate Scree,Urine NEGATIVE (NEGATIVE); Phencyclidine Screen, Urine NEGATIVE (NEGATIVE); Urine Protein/Creatinine Ratio 0.57
[2022-11-03 16:20] VITALS: BP 133/79; PULSE 80; RESP 24; TEMP 98.3; O2SAT 99
[2022-11-03 17:00] VITALS: BP 133/79; PULSE 80; RESP 24; TEMP 98.3; O2SAT 99
[2022-11-03 19:02] LABS: Albumin 3.1 g/dL (3.4-5.0); Potassium 3.1 mmol/L (3.5-5.1)
[2022-11-03 19:08] LABS: BUN/Creatinine Ratio 14.8 (10.0-20.0); Bilirubin, Total 0.3 mg/dL (0.2-1.0); Total Protein 6.4 g/dL (6.4-8.2)
[2022-11-03 20:00] VITALS: PULSE 89
[2022-11-03] MEDS: POTASSIUM CHL 10 Meq TABLET PO SCH (21:48)
[2022-11-03 22:00] VITALS: BP 117/66; PULSE 74; RESP 17; TEMP 98; O2SAT 97
[2022-11-03] MEDS: DOXEPIN HCL 100 MG PO SCH (22:00)
[2022-11-04] VITALS (7 sets, daily range): BP systolic 122–146; BP diastolic 60–95; PULSE 56–78; RESP 16–18; TEMP 97.8–98.3; O2SAT 94–100
[2022-11-04 01:05] LABS: Albumin 3.1 g/dL (3.4-5.0); BUN/Creatinine Ratio 12.5 (10.0-20.0); Calcium 8.3 mg/dL (8.5-10.1)
[2022-11-04 01:08] LABS: Bilirubin, Total 0.3 mg/dL (0.2-1.0); Total Protein 6.4 g/dL (6.4-8.2)
[2022-11-04 01:28] LABS: Potassium 2.8 mmol/L (3.5-5.1)
[2022-11-04] MEDS ORDERED: POTASSIUM CHL 20 Meq TABLET PO ONE (02:45)
[2022-11-04] MEDS: ACCU-CHEK COMFORT CURVE STRIP VI SCH ×5 (05:22→20:34)
[2022-11-04] MEDS: InsuLIN REG 1unit/0.01ml Soln (100units/ml) SC SCH ×5 (05:23→20:37)
[2022-11-04] MEDS: SODIUM CHLORIDE 0.9% 1,000 ML IV SCH ×3 (05:29→18:09)
[2022-11-04 07:35] LABS: Base Excess 1.2 mmol/L (-2.0-2.0)
[2022-11-04 07:41] LABS: Basophils # (auto) 0 10 ^3/uL (0-0.2); Eosinophils # (auto) 0.2 10 ^3/uL (0-0.8); Eosinophils % (auto) 1.5 % (0.0-7.0); Hemoglobin 10.3 g/dL (13.5-17.5)
[2022-11-04 07:43] LABS: Basophils % (auto) 0.4 % (0.0-2.0); Hematocrit 32.2 % (41.0-53.0); Lymphocytes # (auto) 1.9 10 ^3/uL (0.4-5.4); Lymphocytes % (auto) 15.2 % (10.0-50.0); Mean Corpuscular Hemoglobin 25.7 pg (28.0-32.0); Mean Corpuscular Hgb Conc. 32.1 g/dL (32.0-36.0); Monocytes # (auto) 0.9 10 ^3/uL (0-1.3); Monocytes % (auto) 6.9 % (0.0-12.0); Neutrophils # (auto) 9.6 10 ^3/uL (1.6-8.6); Red Blood Cells 4.03 10^6/uL (4.5-5.90); Red Cell Distribution Width 17.1 % (11.8-14.3); White Blood Cell 12.6 10^3/uL (4.4-10.8)
[2022-11-04 07:50] LABS: Albumin 2.9 g/dL (3.4-5.0); Magnesium 2.2 mg/dL (1.6-2.6); Potassium 3.1 mmol/L (3.5-5.1)
[2022-11-04 07:58] LABS: BUN/Creatinine Ratio 14.4 (10.0-20.0); Bilirubin, Total 0.2 mg/dL (0.2-1.0)
[2022-11-04] MEDS: cefTRIAXone 1GM/50ML D5W 50 ML IV SCH (08:54)
[2022-11-04] MEDS: ATORVASTATIN 20 MG TAB PO SCH (08:55)
[2022-11-04] MEDS: ASPirin 81 mg TAB PO SCH (08:55)
[2022-11-04] MEDS: POTASSIUM CHL 10 Meq TABLET PO SCH ×2 (08:56→20:42)
[2022-11-04] MEDS: SUCRALFATE 1 GM TAB PO SCH ×2 (08:56→20:42)
[2022-11-04] MEDS: PANTOPRAZOLE 40 MG TAB PO SCH ×2 (08:56→20:42)
[2022-11-04] MEDS: busPIRone HCL 10 MG TAB PO SCH ×2 (08:56→20:42)
[2022-11-04] MEDS: METOCLOPRAMIDE HCL 10 MG TAB PO SCH ×2 (08:56→20:41)
[2022-11-04] MEDS: HEPARIN SODIUM (PORCINE) 5000 UNITS/ML 1ML VIAL SC SCH ×2 (09:06→20:43)
[2022-11-04] MEDS: INSULIN LANTUS (GLARGINE) 1 /0.01ml (100units/ml) SC SCH (09:12)
[2022-11-04] MEDS: POTASSIUM CHL 20MEQ/100ML 100 ML IV SCH ×2 (11:13→12:12)
[2022-11-04 12:55] LABS: Albumin 3.4 g/dL (3.4-5.0); Calcium 8.4 mg/dL (8.5-10.1); Potassium 4.2 mmol/L (3.5-5.1)
[2022-11-04 12:58] LABS: BUN/Creatinine Ratio 11.5 (10.0-20.0); Bilirubin, Total 0.2 mg/dL (0.2-1.0)
[2022-11-04] MEDS ORDERED: ACETAMINOPHEN 500 MG TAB PO PRN (15:30)
[2022-11-04] MEDS: hydrOXYzine 25 MG TAB or CAP PO PRN (20:41)
[2022-11-04] MEDS: DOXEPIN HCL 100 MG PO SCH (20:43)
[2022-11-04 21:54] LABS: Albumin 3.3 g/dL (3.4-5.0); Calcium 8.3 mg/dL (8.5-10.1); Potassium 3.8 mmol/L (3.5-5.1)
[2022-11-04 21:58] LABS: BUN/Creatinine Ratio 10.5 (10.0-20.0); Bilirubin, Total 0.2 mg/dL (0.2-1.0); Total Protein 6.8 g/dL (6.4-8.2)
[2022-11-05] MEDS: ACCU-CHEK COMFORT CURVE STRIP VI SCH ×4 (00:32→11:54)
[2022-11-05] MEDS: InsuLIN REG 1unit/0.01ml Soln (100units/ml) SC SCH ×4 (00:34→11:56)
[2022-11-05] MEDS: hydrOXYzine 25 MG TAB or CAP PO PRN (02:56)
[2022-11-05 05:00] VITALS: BP 117/78; PULSE 57; RESP 17; TEMP 98; O2SAT 97
[2022-11-05] MEDS: SODIUM CHLORIDE 0.9% 1,000 ML IV SCH ×2 (05:57→11:53)
[2022-11-05 06:58] LABS: Albumin 3.2 g/dL (3.4-5.0); Calcium 8.4 mg/dL (8.5-10.1); Potassium 3.9 mmol/L (3.5-5.1)
[2022-11-05 07:03] LABS: BUN/Creatinine Ratio 12.2 (10.0-20.0); Bilirubin, Total 0.2 mg/dL (0.2-1.0); Total Protein 6.2 g/dL (6.4-8.2)
[2022-11-05 07:11] LABS: Eosinophils # (auto) 0.3 10 ^3/uL (0-0.8); Hemoglobin 11.2 g/dL (13.5-17.5); Lymphocytes # (auto) 3.1 10 ^3/uL (0.4-5.4); White Blood Cell 8.8 10^3/uL (4.4-10.8)
[2022-11-05 07:14] LABS: Basophils # (auto) 0.1 10 ^3/uL (0-0.2); Basophils % (auto) 0.7 % (0.0-2.0); Eosinophils % (auto) 3.4 % (0.0-7.0); Hematocrit 35.7 % (41.0-53.0); Lymphocytes % (auto) 35.5 % (10.0-50.0); Mean Corpuscular Hemoglobin 25.5 pg (28.0-32.0); Mean Corpuscular Hgb Conc. 31.4 g/dL (32.0-36.0); Mean Corpuscular Volume 81.3 fL (80.0-100.0); Monocytes # (auto) 0.7 10 ^3/uL (0-1.3); Monocytes % (auto) 8.3 % (0.0-12.0); Neutrophils # (auto) 4.6 10 ^3/uL (1.6-8.6); Neutrophils % (auto) 52.1 % (37.0-80.0); Nucleated Red Blood Cells % 0.1 %; Red Cell Distribution Width 17.3 % (11.8-14.3)
[2022-11-05] MEDS: cefTRIAXone 1GM/50ML D5W 50 ML IV SCH (07:49)
[2022-11-05 08:00] VITALS: BP 132/84; PULSE 63; PULSE 79; RESP 16; TEMP 97.2
[2022-11-05 09:00] VITALS: BP 132/84; PULSE 63; RESP 16; TEMP 97.2; O2SAT 100
[2022-11-05] MEDS: ASPirin 81 mg TAB PO SCH (09:07)
[2022-11-05] MEDS: PANTOPRAZOLE 40 MG TAB PO SCH (09:07)
[2022-11-05] MEDS: ATORVASTATIN 20 MG TAB PO SCH (09:07)
[2022-11-05] MEDS: METOCLOPRAMIDE HCL 10 MG TAB PO SCH (09:07)
[2022-11-05] MEDS: busPIRone HCL 10 MG TAB PO SCH (09:07)
[2022-11-05] MEDS: POTASSIUM CHL 10 Meq TABLET PO SCH (09:08)
[2022-11-05] MEDS: SUCRALFATE 1 GM TAB PO SCH (09:08)
[2022-11-05] MEDS: HEPARIN SODIUM (PORCINE) 5000 UNITS/ML 1ML VIAL SC SCH (09:11)
[2022-11-05] MEDS: INSULIN LANTUS (GLARGINE) 1 /0.01ml (100units/ml) SC SCH (09:13)
[2022-11-05 12:49] VITALS: BP 120/85; PULSE 61; RESP 16; TEMP 97.7; O2SAT 100
[2022-11-05] MEDS ORDERED: SODIUM CHLORIDE 0.9% 1,000 ML IV SCH (14:45)
[2022-11-05 15:35] VITALS: BP 120/85; PULSE 61; RESP 16; TEMP 36.5; O2SAT 100
[2022-11-05] MEDS ORDERED: HYDR-3682 PO (15:45)
== END 2022-11-05 16:26 | disposition home or self-care (01) | DRG 420 ==
LOC: ER 11:29 → EDBD 11:29 → TELE 16:38 → TELE-WESTW 11-03 16:24
PROVIDERS: ADMIT Internal Medicine; ATTEND Emergency Medicine Emergency Medical Services
DX: E10.10 Type 1 diabetes mellitus with ketoacidosis without coma (principal); N17.0 Acute kidney failure with tubular necrosis; R65.10 Systemic inflammatory response syndrome (SIRS) of non-infectious origin without acute organ dysfunction; D63.1 Anemia in chronic kidney disease; E10.22 Type 1 diabetes mellitus with diabetic chronic kidney disease; I69.354 Hemiplegia and hemiparesis following cerebral infarction affecting left non-dominant side; E86.0 Dehydration; E87.6 Hypokalemia; Z20.822 Contact with and (suspected) exposure to COVID-19; N18.31 Chronic kidney disease, stage 3a; E10.65 Type 1 diabetes mellitus with hyperglycemia; F12.90 Cannabis use, unspecified, uncomplicated; F41.9 Anxiety disorder, unspecified; H54.61 Unqualified visual loss, right eye, normal vision left eye; F20.9 Schizophrenia, unspecified; Z63.72 Alcoholism and drug addiction in family; Z91.199 Patient's noncompliance with other medical treatment and regimen due to unspecified reason; Z81.3 Family history of other psychoactive substance abuse and dependence; Z83.3 Family history of diabetes mellitus; Q11.1 Other anophthalmos; Z91.51 Personal history of suicidal behavior
CPT/HCPCS: 36415; 36600; 71045; 76775; 80053; 80061; 80307; 81001; 82010; 82043; 82306; 82570; 82607; 82805; 82962; 83036; 83605; 83735; 83930; 83970; 84100; 84132; 84156; 84300; 84443; 85007; 85025; 85027; 87040; 93005; G0378; J0696; J1815; J2405; J3480

== ENCOUNTER 2023-03-30 22:27 | Inpatient (IN) | payer MEDICAID ==
[~2023-03-30] VITALS: Ht 193 cm; Wt 64.7 kg
[~2023-03-30 22:27] MED LIST changes: +HYDR-3682 PO; -TRAZ300T16 PO
[2023-03-31] VITALS (28 sets, daily range): BP systolic 104–148; BP diastolic 67–98; PULSE 108–143; RESP 9–28; TEMP 97–98.4; O2SAT 85–100
[2023-03-31 00:03] LABS: Alanine Aminotransferase 28 U/L (7-40); Alkaline Phosphatase 144 U/L (46-116); Aspartate Aminotransferase 24 U/L (13-40); BUN/Creatinine Ratio 18.3 (10.0-20.0); Blood Urea Nitrogen 59 mg/dL (9-23); Calcium 9.3 mg/dL (8.7-10.4); Chloride 76 mmol/L (98-107); Glucose 338 mg/dL (74-106); Sodium 126 mmol/L (136-145)
[2023-03-31 00:04] LABS: Bilirubin, Total 0.7 mg/dL (0.2-1.0); Total Protein 8.1 g/dL (5.7-8.2)
[2023-03-31 00:09] LABS: Anion Gap 9.99999 (5-15)
[2023-03-31 00:11] LABS: Carbon Dioxide > 40 mmol/L (20-30)
[2023-03-31 00:14] LABS: Hematocrit 43.4 % (41.0-53.0)
[2023-03-31 00:16] LABS: Hemoglobin 14.1 g/dL (13.5-17.5); Mean Corpuscular Hemoglobin 27.1 pg (28.0-32.0); Mean Corpuscular Hgb Conc. 32.5 g/dL (32.0-36.0); Mean Corpuscular Volume 83.2 fL (80.0-100.0); Red Blood Cells 5.22 10^6/uL (4.5-5.90); Red Cell Distribution Width 17.7 % (11.8-14.3)
[2023-03-31 00:27] LABS: Basophils % (manual) 0 (0.0-2.0); Blast Cells 0; Eosinophils % (manual) 0 (0-7); Metamyelocytes % 0; Myelocytes % 0; Promyelocytes % 0; Reactive Lymphocytes 0
[2023-03-31] MEDS ORDERED: SODIUM CHLORIDE 0.9% 1,000 ML IV ONE ×2 (01:00→09:15)
[2023-03-31] MEDS ORDERED: METOCLOPRAMIDE HCL 5MG/ml INJ 2ml VIAL IV ONE ×2 (01:00→04:00)
[2023-03-31 01:04] LABS: Band Neutrophils % (manual) 3; Large Platelets FEW; Lymphocytes % (manual) 8 (10.0-50.0); Monocytes % (manual) 8 (0-12); Platelet Estimate Adequate
[2023-03-31 01:10] LABS: Hematocrit 43.2 % (41.0-53.0)
[2023-03-31 01:11] LABS: Mean Corpuscular Hgb Conc. 32.4 g/dL (32.0-36.0); Mean Corpuscular Volume 83.2 fL (80.0-100.0); Red Cell Distribution Width 18.3 % (11.8-14.3)
[2023-03-31 01:13] LABS: Basophils % (manual) 0 (0.0-2.0); Blast Cells 0; Metamyelocytes % 0; Myelocytes % 0; Promyelocytes % 0; Reactive Lymphocytes 0
[2023-03-31 01:14] LABS: White Blood Cell 31.4 10^3/uL (4.4-10.8)
[2023-03-31 01:31] LABS: Alanine Aminotransferase 30 U/L (7-40); Albumin 4.9 g/dL (3.2-4.8); Alkaline Phosphatase 148 U/L (46-116); Anion Gap 12 (5-15); Aspartate Aminotransferase 27 U/L (13-40); BUN/Creatinine Ratio 25.3 (10.0-20.0); Calcium 9.4 mg/dL (8.7-10.4); Carbon Dioxide 38 mmol/L (20-30); Chloride 75 mmol/L (98-107); Glucose 385 mg/dL (74-106); Potassium 3.5 mmol/L (3.5-5.1); Sodium 125 mmol/L (136-145)
[2023-03-31 01:32] LABS: Bilirubin, Total 0.7 mg/dL (0.2-1.0); Total Protein 7.7 g/dL (5.7-8.2)
[2023-03-31 01:36] LABS: Blood Urea Nitrogen 86 mg/dL (9-23)
[2023-03-31 01:48] LABS: Band Neutrophils % (manual) 2; Eosinophils % (manual) 1 (0-7); Lymphocytes % (manual) 11 (10.0-50.0); Monocytes % (manual) 10 (0-12); Platelet Estimate Adequate
[2023-03-31 03:18] LABS: Urine Bacteria NONE SEEN /hpf (None Seen); Urine Blood Negative /uL (Negative); Urine Clarity Clear (Clear); Urine Color Colorless (Yellow); Urine Hyaline Cast FEW /lpf (0 - 2); Urine Protein, UAD 2+ (Negative); Urine Specific Gravity 1.017 (1.001-1.035); Urine Urobilinogen Normal (Negative); Urine WBC 1 /hpf (0 - 3); Urine pH 6.5 (5.0-8.0)
[2023-03-31] MEDS ORDERED: ONDANSETRON HCL 4 MG/2 ML VIAL IV ONE (07:45)
[2023-03-31] MEDS ORDERED: PANTOPRAZOLE 40mg/50ML NS AE 50 ML IV ONE (07:45)
[2023-03-31] MEDS ORDERED: METOCLOPRAMIDE HCL 5MG/ml INJ 2ml VIAL IV PRN (09:15)
[2023-03-31] MEDS ORDERED: DEXTROSE (50%) 50ML SYRG IV PRN ×3 (09:15→17:30)
[2023-03-31] MEDS ORDERED: ACETAMINOPHEN 325 MG TAB PO PRN (09:15)
[2023-03-31] MEDS ORDERED: ONDANSETRON HCL 4 MG/2 ML VIAL IV PRN (09:15)
[2023-03-31] MEDS ORDERED: SODIUM CHLORIDE 0.9% 500 ML IV ONE (09:15)
[2023-03-31] MEDS ORDERED: PATIENTS OWN MEDICATION (Atorvastatin Calcium 1 TAB) PO SCH (10:00)
[2023-03-31] MEDS: PANTOPRAZOLE 40 MG/10 ML VIAL INJ IV SCH (10:00)
[2023-03-31 10:07] LABS: Protein, Urine 16.9 mg/dL (0.0-11.9)
[2023-03-31 10:10] LABS: Creatinine, Urine 40.97 mg/dL (30.0-125.0)
[2023-03-31] MEDS: busPIRone HCL 10 MG TAB PO SCH ×2 (10:18→21:53)
[2023-03-31] MEDS: SUCRALFATE 1 GM TAB PO SCH ×2 (10:19→21:53)
[2023-03-31] MEDS ORDERED: ACCU-CHEK COMFORT CURVE STRIP VI SCH (11:30)
[2023-03-31] MEDS ORDERED: InsuLIN REG 1unit/0.01ml Soln (100units/ml) SC SCH (11:30)
[2023-03-31] MEDS: ACCU-CHEK COMFORT CURVE STRIP VI SCH ×3 (11:38→20:25)
[2023-03-31] MEDS: InsuLIN REG 1unit/0.01ml Soln (100units/ml) SC SCH ×3 (11:38→20:27)
[2023-03-31] MEDS: SODIUM CHLORIDE 0.9% 1,000 ML IV SCH ×2 (12:32→17:35)
[2023-03-31 12:40] LABS: Chloride 81 mmol/L (98-107); Potassium 3.4 mmol/L (3.5-5.1); Sodium 127 mmol/L (136-145)
[2023-03-31 12:41] LABS: Anion Gap 16 (5-15); Carbon Dioxide 30 mmol/L (20-30)
[2023-03-31 12:42] LABS: Calcium 8.8 mg/dL (8.5-10.1)
[2023-03-31 12:46] LABS: BUN/Creatinine Ratio 17.6 (10.0-20.0)
[2023-03-31 12:56] LABS: Blood Urea Nitrogen 58 mg/dL (9-23); Glucose 596 mg/dL (74-106)
[2023-03-31] MEDS: HYDROXYZINE HCL 25 MG PO SCH ×2 (14:00→21:54)
[2023-03-31 15:20] LABS: Gastric Occult Blood Positive (Negative)
[2023-03-31 15:32] LABS: Basophils # (auto) 0 10 ^3/uL (0-0.2); Basophils % (auto) 0.1 % (0.0-2.0); Eosinophils # (auto) 0 10 ^3/uL (0-0.8); Hematocrit 37.7 % (41.0-53.0); Hemoglobin 11.9 g/dL (13.5-17.5); Lymphocytes # (auto) 1.1 10 ^3/uL (0.4-5.4); Lymphocytes % (auto) 4.9 % (10.0-50.0); Mean Corpuscular Hemoglobin 26.5 pg (28.0-32.0); Mean Corpuscular Hgb Conc. 31.5 g/dL (32.0-36.0); Mean Corpuscular Volume 84.3 fL (80.0-100.0); Monocytes # (auto) 1.9 10 ^3/uL (0-1.3); Monocytes % (auto) 8.7 % (0.0-12.0); Neutrophils % (auto) 86.3 % (37.0-80.0); Red Blood Cells 4.47 10^6/uL (4.5-5.90); Red Cell Distribution Width 17.3 % (11.8-14.3); White Blood Cell 22.1 10^3/uL (4.4-10.8)
[2023-03-31] MEDS: ATORVASTATIN 20 MG TAB PO SCH (21:53)
[2023-03-31] MEDS: DOXEPIN HCL 100 MG PO SCH (21:54)
[2023-03-31] MEDS: INSULIN LANTUS (GLARGINE) 1 /0.01ml (100units/ml) SC SCH (21:59)
[2023-04-01] VITALS (37 sets, daily range): BP systolic 101–138; BP diastolic 50–93; PULSE 63–128; RESP 10–18; TEMP 97.1–98.4; O2SAT 91–99
[2023-04-01] MEDS: SODIUM CHLORIDE 0.9% 1,000 ML IV SCH ×3 (01:55→21:08)
[2023-04-01] MEDS: InsuLIN REG 1unit/0.01ml Soln (100units/ml) SC SCH ×6 (04:00→21:07)
[2023-04-01] MEDS: ACCU-CHEK COMFORT CURVE STRIP VI SCH ×6 (04:12→21:08)
[2023-04-01 05:18] LABS: Basophils # (auto) 0 10 ^3/uL (0-0.2); Basophils % (auto) 0.1 % (0.0-2.0); Eosinophils # (auto) 0 10 ^3/uL (0-0.8); Lymphocytes # (auto) 1.1 10 ^3/uL (0.4-5.4); Red Cell Distribution Width 17.3 % (11.8-14.3)
[2023-04-01 05:21] LABS: Eosinophils % (auto) 0.4 % (0.0-7.0); Hematocrit 24.2 % (41.0-53.0); Hemoglobin 7.7 g/dL (13.5-17.5); Lymphocytes % (auto) 10.3 % (10.0-50.0); Mean Corpuscular Hemoglobin 27.2 pg (28.0-32.0); Mean Corpuscular Hgb Conc. 31.8 g/dL (32.0-36.0); Mean Corpuscular Volume 85.4 fL (80.0-100.0); Monocytes # (auto) 1.1 10 ^3/uL (0-1.3); Monocytes % (auto) 10.2 % (0.0-12.0); Neutrophils # (auto) 8.8 10 ^3/uL (1.6-8.6); Red Blood Cells 2.83 10^6/uL (4.5-5.90); White Blood Cell 11.1 10^3/uL (4.4-10.8)
[2023-04-01 05:32] LABS: INR 0.93 (0.9-1.15); Prothrombin Time 9.8 sec (9.3-11.8)
[2023-04-01] MEDS: HYDROXYZINE HCL 25 MG PO SCH ×3 (05:33→21:09)
[2023-04-01] MEDS ORDERED: EPINEPHrine HCL 1 MG/10 ML SYRG ONE (07:31)
[2023-04-01] MEDS ORDERED: LIDOCAINE VISCOUS 2% 15ML UD ONE (07:31)
[2023-04-01] MEDS ORDERED: SODIUM CHLORIDE LOCK 0 ML ONE (07:31)
[2023-04-01] MEDS ORDERED: FLUMAZENIL 0.1 MG/ML INJ 10ML MDV IV ONE (07:31)
[2023-04-01] MEDS ORDERED: NALOXONE HCL 0.4 MG/ML VIAL ONE (07:31)
[2023-04-01] MEDS: busPIRone HCL 10 MG TAB PO SCH ×2 (08:20→21:09)
[2023-04-01] MEDS: SUCRALFATE 1 GM TAB PO SCH ×2 (08:20→21:09)
[2023-04-01 08:49] LABS: Potassium 3.2 mmol/L (3.5-5.1)
[2023-04-01 08:54] LABS: Calcium 8.6 mg/dL (8.7-10.4)
[2023-04-01 08:59] LABS: Alkaline Phosphatase 98 U/L (46-116); BUN/Creatinine Ratio 19.2 (10.0-20.0); Blood Urea Nitrogen 50 mg/dL (9-23); Lipase 27 U/L (12-53)
[2023-04-01 09:01] LABS: Alanine Aminotransferase 18 U/L (7-40); Albumin 3.9 g/dL (3.2-4.8); Aspartate Aminotransferase 14 U/L (13-40); Bilirubin, Total 0.4 mg/dL (0.2-1.0); Total Protein 6.3 g/dL (5.7-8.2)
[2023-04-01 09:05] LABS: Chloride 99 mmol/L (98-107); Glucose 212 mg/dL (74-106); Sodium 139 mmol/L (136-145)
[2023-04-01 09:28] LABS: Anion Gap 12 (5-15); Carbon Dioxide 28 mmol/L (20-30)
[2023-04-01] MEDS: PANTOPRAZOLE 40 MG/10 ML VIAL INJ IV SCH (10:00)
[2023-04-01] MEDS ORDERED: LIDOCAINE 2% (LOCAL ANESTH.) PF 5ml SDV ONE (10:39)
[2023-04-01] MEDS ORDERED: SUCCINYLCHOLINE CHLORIDE 20 MG/ML 10ML VIAL IV ONE (10:43)
[2023-04-01] MEDS ORDERED: DEXTROSE (50%) 50ML SYRG IV PRN (11:45)
[2023-04-01] MEDS: POTASSIUM CHL 20MEQ/100ML 100 ML IV SCH ×2 (12:03→14:25)
[2023-04-01] MEDS ORDERED: cefTRIAXone 1GM/50ML D5W 50 ML IV ONE (13:00)
[2023-04-01 14:29] LABS: Hematocrit 30.1 % (41.0-53.0); Hemoglobin 9.5 g/dL (13.5-17.5)
[2023-04-01 15:50] LABS: COVID19 ANTIGEN SOFIA FIA NEGATIVE (NEGATIVE); Rapid Influenza A Negative (Negative); Rapid Influenza B Negative (Negative)
[2023-04-01] MEDS ORDERED: PROPOFOL 10 MG/ML 20 ML IV ONE (16:38)
[2023-04-01 16:41] LABS: Urine Bacteria NONE SEEN /hpf (None Seen); Urine Blood Negative /uL (Negative); Urine Clarity Clear (Clear); Urine Color Colorless (Yellow); Urine Protein, UAD Negative (Negative); Urine Specific Gravity 1.015 (1.001-1.035); Urine Urobilinogen Normal (Negative); Urine WBC <1 /hpf (0 - 3)
[2023-04-01 16:50] LABS: Amphetamine Screen, Urine Neg (NEGATIVE); Barbiturate Scree,Urine Neg (NEGATIVE); Benzodiazephine Screen, Urine Neg (NEGATIVE); Cannabinoid Screen, Urine Pos (NEGATIVE); Cocaine Screen, Urine Neg (NEGATIVE); Opiate Scree,Urine Neg (NEGATIVE); Phencyclidine Screen, Urine Neg (NEGATIVE)
[2023-04-01 18:16] LABS: Hematocrit 29.4 % (41.0-53.0); Hemoglobin 9.2 g/dL (13.5-17.5)
[2023-04-01] MEDS: ATORVASTATIN 20 MG TAB PO SCH (21:10)
[2023-04-01] MEDS: INSULIN LANTUS (GLARGINE) 1 /0.01ml (100units/ml) SC SCH (21:10)
[2023-04-01] MEDS: DOXEPIN HCL 100 MG PO SCH (21:14)
[2023-04-02] MEDS: ACCU-CHEK COMFORT CURVE STRIP VI SCH ×5 (00:01→16:01)
[2023-04-02] MEDS: InsuLIN REG 1unit/0.01ml Soln (100units/ml) SC SCH ×5 (00:01→16:38)
[2023-04-02 00:45] LABS: Hematocrit 25.3 % (41.0-53.0); Hemoglobin 8.2 g/dL (13.5-17.5)
[2023-04-02] MEDS ORDERED: MELATONIN 5 MG TAB PO PRN (01:45)
[2023-04-02 05:00] VITALS: BP 106/60; PULSE 77; RESP 22; TEMP 98; O2SAT 96
[2023-04-02 05:55] LABS: Basophils # (auto) 0 10 ^3/uL (0-0.2); Basophils % (auto) 0.2 % (0.0-2.0); Eosinophils # (auto) 0.3 10 ^3/uL (0-0.8); Eosinophils % (auto) 2.3 % (0.0-7.0); Hemoglobin 8.2 g/dL (13.5-17.5); Lymphocytes # (auto) 3.1 10 ^3/uL (0.4-5.4); Lymphocytes % (auto) 23.4 % (10.0-50.0); Mean Corpuscular Hemoglobin 27.5 pg (28.0-32.0); Mean Corpuscular Hgb Conc. 32.9 g/dL (32.0-36.0); Mean Corpuscular Volume 83.6 fL (80.0-100.0); Monocytes # (auto) 1.2 10 ^3/uL (0-1.3); Neutrophils # (auto) 8.6 10 ^3/uL (1.6-8.6); Neutrophils % (auto) 65.1 % (37.0-80.0); Red Blood Cells 2.99 10^6/uL (4.5-5.90); Red Cell Distribution Width 17.3 % (11.8-14.3); White Blood Cell 13.3 10^3/uL (4.4-10.8)
[2023-04-02 05:58] LABS: Chloride 102 mmol/L (98-107); Potassium 2.9 mmol/L (3.5-5.1); Sodium 137 mmol/L (136-145)
[2023-04-02] MEDS: HYDROXYZINE HCL 25 MG PO SCH (05:58)
[2023-04-02 05:59] LABS: Anion Gap 8 (5-15); Carbon Dioxide 27 mmol/L (20-30)
[2023-04-02 06:00] LABS: Calcium 8.1 mg/dL (8.7-10.4)
[2023-04-02 06:04] LABS: BUN/Creatinine Ratio 19.1 (10.0-20.0); Blood Urea Nitrogen 41 mg/dL (9-23); Glucose 85 mg/dL (74-106)
[2023-04-02 08:00] VITALS: PULSE 91; RESP 12; O2SAT 100
[2023-04-02] MEDS: SODIUM CHLORIDE 0.9% 1,000 ML IV SCH (08:33)
[2023-04-02 09:00] VITALS: BP 141/76; PULSE 96; RESP 12; TEMP 98.2; O2SAT 100
[2023-04-02] MEDS ORDERED: cefTRIAXone 1GM/50ML D5W 50 ML IV SCH (09:00)
[2023-04-02] MEDS ORDERED: POTASSIUM EFFERVESENT TAB 25 MEQ PO ONE (10:30)
[2023-04-02] MEDS: PANTOPRAZOLE 40 MG/10 ML VIAL INJ IV SCH (11:14)
[2023-04-02] MEDS: SUCRALFATE 1 GM TAB PO SCH (11:14)
[2023-04-02] MEDS: busPIRone HCL 10 MG TAB PO SCH (11:14)
[2023-04-02 13:00] VITALS: BP 136/71; PULSE 91; RESP 18; TEMP 97.9; O2SAT 100
[2023-04-02 13:12] LABS: Hematocrit 27.9 % (41.0-53.0); Hemoglobin 8.8 g/dL (13.5-17.5)
[2023-04-02] MEDS ORDERED: HYDROXYZINE HCL 25 MG PO SCH ×2 (14:55→22:00)
[2023-04-02 15:06] VITALS: BP 136/71; PULSE 91; RESP 18; TEMP 97.9; O2SAT 100
[2023-04-02] MEDS ORDERED: FLUC150T38 PO (15:57)
[2023-04-02] MEDS ORDERED: ATOR20TA50 PO (15:57)
[2023-04-02] MEDS ORDERED: BUSP10TA31 PO (15:57)
== END 2023-04-02 16:36 | disposition home or self-care (01) | DRG 720 ==
LOC: ER 22:27 → EDBD 22:27 → OVERFLOW 03-31 09:02 → DOU IN ICU 03-31 16:30 → TELE-WESTW 04-01 18:05
PROVIDERS: ADMIT Internal Medicine; ATTEND Student in an Organized Health Care Education/Training Program
PROC: 0DB58ZX Excision of Esophagus, Via Natural or Artificial Opening Endoscopic, Diagnostic (ICD-10-PCS; 2023-04-01)
PROC: 0DB68ZX Excision of Stomach, Via Natural or Artificial Opening Endoscopic, Diagnostic (ICD-10-PCS; principal; 2023-04-01 10:50)
DX: A41.9 Sepsis, unspecified organism (principal); N17.0 Acute kidney failure with tubular necrosis; K22.11 Ulcer of esophagus with bleeding; E10.10 Type 1 diabetes mellitus with ketoacidosis without coma; K29.71 Gastritis, unspecified, with bleeding; E87.1 Hypo-osmolality and hyponatremia; D64.9 Anemia, unspecified; E10.22 Type 1 diabetes mellitus with diabetic chronic kidney disease; K31.84 Gastroparesis; E87.3 Alkalosis; R65.10 Systemic inflammatory response syndrome (SIRS) of non-infectious origin without acute organ dysfunction; F12.90 Cannabis use, unspecified, uncomplicated; N30.90 Cystitis, unspecified without hematuria; D72.829 Elevated white blood cell count, unspecified; Z20.822 Contact with and (suspected) exposure to COVID-19; E86.0 Dehydration; F20.9 Schizophrenia, unspecified; H54.40 Blindness, one eye, unspecified eye; H54.61 Unqualified visual loss, right eye, normal vision left eye; N18.2 Chronic kidney disease, stage 2 (mild); Z63.72 Alcoholism and drug addiction in family; Z83.3 Family history of diabetes mellitus; Z86.73 Personal history of transient ischemic attack (TIA), and cerebral infarction without residual deficits; Z90.01 Acquired absence of eye; E10.43 Type 1 diabetes mellitus with diabetic autonomic (poly)neuropathy
CPT/HCPCS: 36415; 43239; 71045; 74176; 76775; 80048; 80053; 80307; 81001; 82150; 82271; 82570; 82962; 83036; 83690; 83735; 83930; 84156; 84300; 85007; 85014; 85018; 85025; 85027; 85610; 86850; 86900; 86901; 87081; 87086; 87426; 87804; 96361; 96365; 96375; 99291; C9113; G0378; J0330; J1815; J2001; J2405; J2704; J3480

== ENCOUNTER 2025-03-15 11:10 | Inpatient (IN) | payer MEDICARE, MEDICAID ==
[~2025-03-15] VITALS: Ht 182.9 cm; Wt 68.0 kg
[2025-03-15] MEDS: SODIUM CHLORIDE 0.9% 1,000 ML IV SCH ×3 (00:30→22:30)
[~2025-03-15 11:10] MED LIST changes: -ATOR10TA52 PO; +ATOR20TA50 PO; +BUSP10TA31 PO; -BUSP10TA90 PO; -CLIN300C70 PO; +FLUC150T38 PO; -SUCR1TAB22 PO; +SUCR1TAB31 PO
--- NOTE | 2025-03-15 11:55 | ED.PDOC ---
History of present illness HPI Comments HPI: Prateek 29 y.o male presents to the ED via EMS for a chief complaint of abdominal pain associated with nausea, vomiting and abdominal pain that started 2 days ago. Patient reports symptoms are accompanied by elevated BG levels with last Accu check taken this morning around 0900 reading 280. Patient take insulin. Patient has been see at this hospital ([facility]) multiple times for same complaint and gets diagnosed with DKA, with last hospital admission being x 8 days ago. He denies any hematemesis, fever, chills, diarrhea. He continues to use marijuana. Initial Vitals BP: 122/76 HR: 110 RR: 17 O2: 98% RA Temp: 98.6F Past Medical History: DMT1, CKD stage 2, right eye enucleation, schizophrenia, CVA, HTN, HLD, gastritis, SIRS due to DM Past Surgical History: Denies Social History: Marijuana Allergies: None HPI: Poor Historian. REVIEW OF SYSTEMS: CONSTITUTIONAL: Denies acute: fever, diaphoresis, chills, HEAD: Denies acute: headache, photophobia Eyes: Denies acute: Double vision, vision loss, eye pain, eye discharge. EARS: Denies acute: tinnitus, hearing loss, ear discharge, ear pain, THROAT: Denies acute: sore throat, swelling, difficulty swallowing , pain with swallowing, change in voice. NECK: Denies acute: neck pain, neck swelling, stiff neck. HEART: Denies acute : chest pain, palpitations, LUNGS: Denies acute: SOB, wheezing, cough, hemoptysis ABDOMEN: Denies acute: abdominal pain, diarrhea, melena , hematemesis, hematochezia SKIN: Denies acute: rash, redness, lesions, itchiness. EXTREMITIES: Denies acute: calf pain, numbness, tingling, weakness, denies pain in extremity. Denies acute: Low back pain. Neuro: Denies acute: focal neurological deficit, motor or sensory focal neurological deficit, tremors, seizure like activity, confusion, dizziness, change in mental status, loss of bowel or bladder function, cauda equina like symptoms. : Denies acute: dysuria, hematuria, flank pain, increase in urinary frequency. PSYCH: Denies acute: hallucination, suicidal ideation, homicidal ideation. PHYSICAL EXAM: General: ----mod----acute distress, awake and alert. Head: normocephalic, atraumatic. No raccoon's eyes, no acuna sign. Neck: supple, trachea is midline, no swelling. Throat: Normal phonation. Eyes:, no erythema, no purulent discharge, no proptosis, no icterus. Heart: regular rate, regular rhythm, no significant murmur appreciated. Lungs: no apparent respiratory distress, Able to speak in full sentences. No wheezing, no rhonchi, no crackles. No stridors Clear to auscultation bilaterally. Abdomen: minimal epigastric tender to palpation, non distended, soft, no guarding, no rebound, + bowel sounds. Neuro: Awake, Alert, oriented to name, self, situation, follows commands GCS=15. Speech is normal. Skin: no petechia, no purpura, no cyanosis, non-pale, not jaundice. Lower extremities: --no - Pitting edema no deformity, no focal swelling, no calf TTP. Makes eye contact. moves all four extremities. Face: no apparent facial droop. ED COURSE: DISCLAIMER: This medical document was created using an electronic medical record system with voice recognition software and computerized dictation system. Although this document has been carefully reviewed, there might still be some phonetic and typ ographical errors. Occasional wrong-word or "sound-alike" substitutions may have occurred due to the inherent limitations of voice recognition software. These areas are purely typographical due to imperfections of the software programs and do not reflect any compromise in the patient's medical care. Please read the chart carefully and recognize, using context, where these substitutions have occurred. Chief Complaint: Nausea/Vomiting Time Seen by MD: 11:45 Primary Care Provider: STU History of present illness: Nurses Notes, Medications, Allergies Allergies: Coded Allergies: NO KNOWN ALLERGIES (Unverified , 10/11/21) Home Meds Active Scripts Fluconazole (Diflucan) 150 Mg Tab, 1 TAB PO DAILY, #14 TAB 1 Refill Prov:MAIRA JIMENEZ DO 04/02/23 Atorvastatin Calcium (ATORVASTATIN CALCIUM) 20 Mg Tab, 10 MG PO HS for 30 Days, #15 TAB 11 Refills Prov:MAIRA JIMENEZ DO 04/02/23 Buspirone HCl (Buspirone HCl) 10 Mg Tab, 10 MG PO Q12HR for 30 Days, #60 TAB 11 Refills Prov:AMIRA JIMENEZ DO 04/02/23 Hydroxyzine Hcl (Hydroxyzine Hcl) 25 Mg Tab, 1 TAB PO TID, #90 TAB Prov:ALISSA ARSHAD MD 11/05/22 Sucralfate (CARAFATE) 1 Gm Tab, 1 GM PO BID for 30 Days, #60 TAB Prov:ELLIOTT PENNY MD 10/13/21 Metoclopramide Hcl (Reglan) 10 Mg Tab, 10 MG PO BID for 30 Days, #60 TAB Prov:ELLIOTT PENNY MD 10/13/21 Pantoprazole Sodium Sesquihydr (Protonix) 40 Mg Tab, 40 MG PO BID for 30 Days, #60 TAB Prov:ELLIOTT PENNY MD 10/13/21 Insulin Lispro (Insulin Lispro Kwikpen) 100 Unit/Ml Inj, 1 DOSE SC ACHS, #5 SYR Administer up to 60 units daily divided 3 times daily before meals and at bedtime per provided sliding scale. Prov:YAHAIRA PRETTY MD 08/23/21 Insulin Glargine (Basaglar Kwikpen) 100 Unit/Ml Inj, 30 UNIT SC DAILY, #5 SYR Prov:YAHAIRA PRETTY MD 08/23/21 Reported Medications Doxepin Hcl (Doxepin Hcl) 10 Mg Cap, 100 MG PO HS, CAP 08/22/21 Aripiprazole (Abilify Mycite) 15 Mg Tab, 15 MG PO HS, TAB 10/11/20 Information Source: Patient Mode of Arrival: EMS Was a procedure done? Was a procedure done?: No Differential Diagnosis (DM) Differential Diagnosis: Dehydration, Diabetic Coma, DKA, Electrolyte Abnormality, Gastritis, Gastroenteritis, Hepatitis, Hyperglycemia, Hyperosmolar State, Pancreatitis X-Ray, Labs, Meds, VS Vital Signs Date Time Temp Pulse Resp B/P (MAP) Pulse Ox O2 Delivery O2 Flow Rate FiO2 03/15/25 15:03 85 16 137/75 (95) 98 03/15/25 13:00 103 16 147/86 (106) 98 03/15/25 12:00 109 12/13/25 11:20 98.6 110 17 122/76 98 98.6 Lab Test 03/15/25 13:57 03/15/25 13:48 03/15/25 11:56 03/15/25 11:42 Range/Units Urine Color Light-yellow Yellow Urine Clarity Clear Clear Urine pH 7.5 5.0-9.0 Urine Specific [place] 1.016 1.001-1.035 Urine Protein 2+ H Negative Urine Ketones 2+ H Negative Urine Blood 1+ H Negative /uL Urine Nitrite Negative Negative Urine Bilirubin Negative Negative Urine Urobilinogen Normal Negative mg/dL Urine Leukocyte Esterase Negative Negative /uL Urine RBC 2 0 - 3 /hpf Urine Microscopic WBC < 1 0-3 /HPF Urine Squamous Epithelial Cells None seen <5 /hpf Urine Bacteria None seen None Seen /hpf Urine Glucose 3+ H Normal mg/dL White Blood Count 26.6 H 26.6 H 4.4-10.8 10^3/uL Red Blood Count 4.53 4.73 4.5-5.90 10^6/uL Hemoglobin 13.6 14.3 13.5-17.5 g/dL Hematocrit 41.0 42.4 41.0-53.0 % Mean Corpuscular Volume 90.6 89.6 80.0-100.0 fL Mean Corpuscular Hemoglobin 30.1 30.3 28.0-32.0 pg Mean Corpuscular Hemoglobin Concent 33.2 33.8 32.0-36.0 g/dL Red Cell Distribution Width 13.3 13.1 11.8-14.3 % Platelet Count 277 294 140-450 10^3/uL Mean Platelet Volume 7.6 7.6 6.9-10.8 fL Neutrophils (%) (Auto) 90.2 H 37.0-80.0 % Lymphocytes (%) (Auto) 2.6 L 10.0-50.0 % Monocytes (%) (Auto) 6.8 0.0-12.0 % Eosinophils (%) (Auto) 0.0 0.0-7.0 % Basophils (%) (Auto) 0.4 0.0-2.0 % Neutrophils # (Auto) 24.0 H 1.6-8.6 10 ^3/uL Lymphocytes # (Auto) 0.7 0.4-5.4 10 ^3/uL Monocytes # (Auto) 1.8 H 0-1.3 10 ^3/uL Eosinophils # (Auto) 0 0-0.8 10 ^3/uL Basophils # (Auto) 0.1 0-0.2 10 ^3/uL Nucleated Red Blood Cells 0.0 % Sodium Level 134 L 130 L 136-145 mmol/L Potassium Level 3.2 L 3.3 L 3.5-5.1 mmol/L Chloride Level 82 L 78 L 98-107 mmol/L Carbon Dioxide Level 35 H 34 H 20-31 mmol/L Anion Gap 17 H 18 H 5-15 Blood Urea Nitrogen 37 H 45 H 9-23 mg/dL Creatinine 3.65 H 3.53 H 0.700-1.30 mg/dL Glomerular Filtration Rate Calc 22 23 >90 mL/min BUN/Creatinine Ratio 10.1 12.7 10.0-20.0 Serum Glucose 305 H 316 H 74-106 mg/dL Calcium Level 8.9 9.5 8.7-10.4 mg/dL Total Bilirubin 0.6 0.8 0.2-1.0 mg/dL Aspartate Amino Transferase (AST) 17 20 13-40 U/L Alanine Aminotransferase (ALT) 17 19 7-40 U/L Alkaline Phosphatase 151 H 155 H 46-116 U/L Total Protein 7.6 8.0 5.7-8.2 g/dL Albumin 4.6 4.9 H 3.2-4.8 g/dL POC Glucose 330 H 70-106 mg/dl Differential Total Cells Counted 100.0 100 Neutrophils % (Manual) 91 H 37.0-80.0 Band Neutrophils % (Manual) 0 Lymphocytes % (Manual) 3 L 10.0-50.0 Monocytes % (Manual) 6 0-12 Eosinophils % (Manual) 0 0-7 Basophils % (Manual) 0 0.0-2.0 Metamyelocytes % (manual) 0 Myelocytes % (Manual) 0 Promyelocytes % (Manual) 0 Blast Cells % (Manual) 0 Reactive Lymphocytes 0 Smudge Cells 2 /100 WBC Platelet Estimate Adequate Serum Osmolality 313 H 278-298 mOsm/kg Lactic Acid Level 2.0 0.4-2.0 mmol/L Magnesium Level 1.5 L 1.6-2.6 mg/dL Troponin I High Sensitivity 46 </=54 ng/L Lipase 44 12-53 U/L Beta-Hydroxybutyric Acid 3.625 H < 0.4 mmol/L Current Medications Medications (Trade) Dose Ordered Sig/Abhinav Route Start Time Stop Time Status Last Admin Sodium Chloride 1,000 ml @ 1,000 mls/hr Q1H ONCE IV 03/15/25 11:45 03/15/25 12:44 DC 03/15/25 12:02 Ondansetron HCl (Zofran) 8 mg ONCE ONCE IV 03/15/25 11:45 03/15/25 11:46 DC 03/15/25 12:02 Ceftriaxone Sodium 50 ml @ 100 mls/hr ONCE ONCE IV 03/15/25 12:15 03/15/25 12:44 DC 03/15/25 14:08 Sodium Chloride 1,000 ml @ 1,000 mls/hr Q1H ONCE IV 03/15/25 12:15 03/15/25 13:14 DC 03/15/25 12:15 Time of 1ST Reevaluation: 11:51 Reevaluation 1ST: Unchanged Patient Education/Counseling: Diagnosis, Treatment Family Education/Counseling: No Family Present Departure 1 Departure Time of Disposition: 12:37 Impression: Primary Impression: Nausea and vomiting Additional Impressions: Uncontrolled diabetes mellitus Chronic kidney disease Disposition: ADMITTED INPATIENT Admit to: Tele Condition: Guarded Discharged With: Self Critical Care Note Critical Care Time?: No I personally scribed for BRAULIO OSORIO DO ([email or web address]) on 03/15/25 at 11:55. Shelley ctronically submitted by Sera Couch ([facility]). I personally scribed for BRAULIO OSORIO DO ([email or web address]) on 03/15/25 at 18:36. Elect ronically submitted by Sera Couch ([facility]). BRAULIO OSORIO DO Mar 15, 2025 11:55
[2025-03-15 11:57] LABS: Hematocrit 42.4 % (41.0-53.0); Hemoglobin 14.3 g/dL (13.5-17.5); Mean Corpuscular Hemoglobin 30.3 pg (28.0-32.0); Mean Corpuscular Volume 89.6 fL (80.0-100.0)
[2025-03-15 12:00] VITALS: PULSE 94; RESP 20; O2SAT 98
[2025-03-15] MEDS: SODIUM CHLORIDE 0.9% 1,000 ML IV ONE ×2 (12:02→12:15)
[2025-03-15] MEDS: ONDANSETRON HCL 4 MG/2 ML VIAL IV ONE (12:02)
[2025-03-15 12:13] LABS: Alanine Aminotransferase 19 U/L (7-40); Anion Gap 18 (5-15); BUN/Creatinine Ratio 12.7 (10.0-20.0); Calcium 9.5 mg/dL (8.7-10.4); Lipase 44 U/L (12-53); Total Protein 8.0 g/dL (5.7-8.2)
[2025-03-15 12:14] LABS: Bilirubin, Total 0.8 mg/dL (0.2-1.0)
[2025-03-15 12:17] LABS: Albumin 4.9 g/dL (3.2-4.8); Alkaline Phosphatase 155 U/L (46-116); Blood Urea Nitrogen 45 mg/dL (9-23); Carbon Dioxide 34 mmol/L (20-31); Chloride 78 mmol/L (98-107); Glucose 316 mg/dL (74-106); Magnesium 1.5 mg/dL (1.6-2.6); Potassium 3.3 mmol/L (3.5-5.1); Sodium 130 mmol/L (136-145)
[2025-03-15 12:35] LABS: Smudge Cells 2 /100 WBC; Total Cells Counted 100.0 (100)
[2025-03-15 14:07] LABS: Urine Protein, UAD 2+ (Negative)
[2025-03-15 14:14] LABS: Hematocrit 41.0 % (41.0-53.0); Hemoglobin 13.6 g/dL (13.5-17.5); Mean Corpuscular Hemoglobin 30.1 pg (28.0-32.0); Mean Corpuscular Volume 90.6 fL (80.0-100.0); Nucleated Red Blood Cells % 0.0 %
[2025-03-15 14:16] LABS: Alanine Aminotransferase 17 U/L (7-40); Albumin 4.6 g/dL (3.2-4.8); Anion Gap 17 (5-15); BUN/Creatinine Ratio 10.1 (10.0-20.0); Bilirubin, Total 0.6 mg/dL (0.2-1.0); Calcium 8.9 mg/dL (8.7-10.4); Total Protein 7.6 g/dL (5.7-8.2)
[2025-03-15 14:17] LABS: Alkaline Phosphatase 151 U/L (46-116); Blood Urea Nitrogen 37 mg/dL (9-23); Carbon Dioxide 35 mmol/L (20-31); Chloride 82 mmol/L (98-107); Glucose 305 mg/dL (74-106); Potassium 3.2 mmol/L (3.5-5.1); Sodium 134 mmol/L (136-145)
[2025-03-15] MEDS ORDERED: INSULIN LANTUS (GLARGINE) 1 /0.01ml (100units/ml) SC ONE (15:30)
[2025-03-15] MEDS ORDERED: INSULIN DRIP 100 UNIT/100ML 100 ML IV SCH ×2 (15:30)
[2025-03-15] MEDS ORDERED: DOCUSATE SOD 100 MG CAP PO PRN (15:30)
[2025-03-15] MEDS ORDERED: DEXTROSE (50%) 50ML SYRG IV PRN ×2 (15:30)
[2025-03-15] MEDS ORDERED: NITROGLYCERIN 0.4 MG SL TAB SL PRN (15:30)
[2025-03-15] MEDS ORDERED: ACCU-CHEK COMFORT CURVE STRIP VI SCH (16:30)
[2025-03-15] MEDS: ACCU-CHEK COMFORT CURVE STRIP VI SCH (16:45)
[2025-03-15] MEDS: INSULIN LANTUS (GLARGINE) 1 /0.01ml (100units/ml) SC ONE (16:56)
[2025-03-15] MEDS: PANTOPRAZOLE 40 MG/10 ML VIAL INJ IV ONE (16:56)
[2025-03-15] MEDS: MAGNESIUM SULFATE 1GM/100ML 100 ML IV SCH (16:57)
--- NOTE | 2025-03-15 17:34 | DVHHP2 ---
History of Present Illness Reason for Visit: abd pain nv History of Present Illness 29-year-old male with past medical history significant for type 1 diabetes mellitus with prior episodes of DKA, CKD stage II, right eye enucleation, schizophrenia, history of CVA with residual left-sided weakness, hypertension, hyperlipidemia, gastritis, and prior SIRS related to diabetes presents with vomiting for two days, including blood-streaked emesis. He denies diarrhea, fever, chest pain, or shortness of breath. He reports feeling similar to prior episodes of DKA and is concerned that he is developing another episode. He states he has been taking his insulin as prescribed. He denies marijuana use currently but reports smoking marijuana yesterday. In the ED, laboratory evaluation revealed severe leukocytosis (WBC 26.6), glucose 389536, beta- hydroxybutyrate 3.625, anion gap 18, lactate 2.0, sodium 130, potassium 3.3, chloride 78, CO? 34, creatinine 3.53, BUN 45, magnesium 1.5, alkaline phosphatase 155, albumin 4.9, and lipase 46. Troponin was negative. Findings are consistent with acute diabetic ketoacidosis, acute kidney injury on CKD, electrolyte derangements, and possible gastritis with hematemesis. Given metabolic instability and risk for further decompensation, the patient will be admitted to the [facility] for DKA protocol, insulin drip, IV fluids, electrolyte replacement, and close monitoring. Past Medical History See HPI above Past Surgical History See HPI above Family History Reviewed, non-contributory to the management of this case. Past Social History Patient is smokes marijuana smoke yesterday denies drug or alcohol use Review of Systems Constitutional: No: Fever, Chills, Sweats, Weakness, Malaise, Other Eyes: No: Pain, Vision change, Conjunctivae inflammation, Eyelid inflammation, Other, Redness ENT: No: Ear pain, Ear discharge, Nose pain, Nose discharge, Nose congestion, Mouth pain, Mouth swelling, Throat pain, Throat swelling, Other Respiratory: No: Cough, Dry, Shortness of breath, SOB with excertion, Wheezing, Hemoptysis, Pleuritic Pain, Sputum, Wheezing, Other Cardiovascular: No: Chest Pain, Palpitations, Orthopnea, Paroxysmal Noc. Dy spnea, Edema, Lt Headedness, Other Gastrointestinal: Nausea, Vomiting, Abdominal Pain; No: Diarrhea, Constipation, Melena, Hematochezia, Other Genitourinary: No Dysuria, No Frequency, No Incontinence, No Hematuria, No Retention, No Other Musculoskeletal: No: other, neck pain, shoulder pain, arm pain, back pain, hand pain, leg pain, foot pain Skin: No: Rash, Lesions, Jaundice, Bruising, Other Neurological: No: Weakness, Numbness, Incoordination, Change in speech, Confusion, Seizures, Other Allergies: Coded Allergies: NO KNOWN ALLERGIES (Unverified , 10/11/21) Medications Current Medications Medications Dose Ordered Sig/Abhinav Route Start Time Stop Time Status Last Admin Dose Admin Diagnostic Test (Pha) 1 strip Q90MIN 03/15/25 16:30 UNV Dextrose 50 ml PRN PRN IV 03/15/25 15:30 Insulin Glargine 15 units DAILY SC 03/16/25 10:00 Magnesium Sulfate/ Dextrose 100 ml @ 100 mls/hr Q1HR IV 03/15/25 16:00 03/15/25 17:59 03/15/25 16:57 100 MLS/HR Potassium Chloride 100 ml @ 50 mls/hr Q2H IV 03/15/25 15:30 03/15/25 19:29 Sodium Chloride 1,000 ml @ 500 mls/hr Q2H IV 03/15/25 15:30 03/15/25 19:29 03/15/25 16:57 500 MLS/HR Sodium Chloride 1,000 ml @ 250 mls/hr Q4H IV 03/15/25 19:30 03/15/25 21:29 Sodium Chloride 1,000 ml @ 150 mls/hr Q6H40M IV 03/15/25 21:30 Insulin Human (Reg)/Sodium Chloride 100 ml @ 0.5 mls/hr Q24H IV 03/15/25 15:30 Dextrose 50 ml UD PRN IV 03/15/25 15:30 Diagnostic Test (Pha) 1 strip Q90MIN 03/15/25 16:30 03/15/25 16:45 1 STRIP Insulin Glargine 15 units DAILY SC 03/16/25 10:00 UNV Pantoprazole Sodium 40 mg BID IV 03/15/25 22:00 Buspirone HCl 10 mg Q12HR PO 03/15/25 22:00 Sucralfate 1 gm BID PO 03/15/25 22:00 Patient Own Medication 15 mg HS PO 03/15/25 22:00 Patient Own Medication 100 mg HS PO 03/15/25 22:00 Ondansetron HCl 4 mg Q4HP PRN IV 03/15/25 15:30 Docusate Sodium 100 mg BIDPRN PRN PO 03/15/25 15:30 Enoxaparin Sodium 30 mg DAILY SC 03/16/25 10:00 Morphine Sulfate 2 mg Q4HPRN PRN IV 03/15/25 15:30 Nitroglycerin 0.4 mg Q5MINP PRN SL 03/15/25 15:30 Exam Vital Signs Vital Signs Date Time Temp Pulse Resp B/P (MAP) Pulse Ox O2 Delivery O2 Flow Rate FiO2 03/15/25 15:03 85 16 137/75 (95) 98 03/15/25 11:20 98.6 98.6 General Appearance: Alert, Oriented X3, Cooperative, No acute distress HEENT: Atraumatic, Other (right eye, with patch covering eye ) Respiratory: Clear to auscultation, Normal air movement Cardiovascular: Regular rate, Normal S1, Normal S2, No murmurs Abdominal: Normal bowel sounds, Soft, No tenderness, No hepatospenomegaly, No masses Extremities: No clubbing, No cyanosis, No edema, Normal pulses, No tenderness/swelling Skin: No rashes, No breakdown, No significant lesion Neuro: Other (Left-sided weakness from prior stroke) Psych/Mental Status: Mental status NL, Mood NL Labs/Xrays I reviewed labs, imaging CT scan abdomen pelvis, EKG and all diagnostic studies on this patient from ED records and the medical chart Labs Test 03/15/25 16:43 03/15/25 13:57 03/15/25 13:48 03/15/25 11:42 Range/Units POC Glucose 314 H 70-106 mg/dl Urine Color Light-yellow Yellow Urine Clarity Clear Clear Urine pH 7.5 5.0-9.0 Urine Specific [place] 1.016 1.001-1.035 Urine Protein 2+ H Negative Urine Ketones 2+ H Negative Urine Blood 1+ H Negative /uL Urine Nitrite Negative Negative Urine Bilirubin Negative Negative Urine Urobilinogen Normal Negative mg/dL Urine Leukocyte Esterase Negative Negative /uL Urine RBC 2 0 - 3 /hpf Urine Microscopic WBC < 1 0-3 /HPF Urine Squamous Epithelial Cells None seen <5 /hpf Urine Bacteria None seen None Seen /hpf Urine Glucose 3+ H Normal mg/dL White Blood Count 26.6 H 4.4-10.8 10^3/uL Red Blood Count 4.53 4.5-5.90 10^6/uL Hemoglobin 13.6 13.5-17.5 g/dL Hematocrit 41.0 41.0-53.0 % Mean Corpuscular Volume 90.6 80.0-100.0 fL Mean Corpuscular Hemoglobin 30.1 28.0-32.0 pg Mean Corpuscular Hemoglobin Concent 33.2 32.0-36.0 g/dL Red Cell Distribution Width 13.3 11.8-14.3 % Platelet Count 277 140-450 10^3/uL Mean Platelet Volume 7.6 6.9-10.8 fL Neutrophils (%) (Auto) 90.2 H 37.0-80.0 % Lymphocytes (%) (Auto) 2.6 L 10.0-50.0 % Monocytes (%) (Auto) 6.8 0.0-12.0 % Eosinophils (%) (Auto) 0.0 0.0-7.0 % Basophils (%) (Auto) 0.4 0.0-2.0 % Neutrophils # (Auto) 24.0 H 1.6-8.6 10 ^3/uL Lymphocytes # (Auto) 0.7 0.4-5.4 10 ^3/uL Monocytes # (Auto) 1.8 H 0-1.3 10 ^3/uL Eosinophils # (Auto) 0 0-0.8 10 ^3/uL Basophils # (Auto) 0.1 0-0.2 10 ^3/uL Nucleated Red Blood Cells 0.0 % Sodium Level 134 L 136-145 mmol/L Potassium Level 3.2 L 3.5-5.1 mmol/L Chloride Level 82 L 98-107 mmol/L Carbon Dioxide Level 35 H 20-31 mmol/L Anion Gap 17 H 5-15 Blood Urea Nitrogen 37 H 9-23 mg/dL Creatinine 3.65 H 0.700-1.30 mg/dL Glomerular Filtration Rate Calc 22 >90 mL/min BUN/Creatinine Ratio 10.1 10.0-20.0 Serum Glucose 305 H 74-106 mg/dL Calcium Level 8.9 8.7-10.4 mg/dL Total Bilirubin 0.6 0.2-1.0 mg/dL Aspartate Amino Transferase (AST) 17 13-40 U/L Alanine Aminotransferase (ALT) 17 7-40 U/L Alkaline Phosphatase 151 H 46-116 U/L Total Protein 7.6 5.7-8.2 g/dL Albumin 4.6 3.2-4.8 g/dL Differential Total Cells Counted 100.0 100 Neutrophils % (Manual) 91 H 37.0-80.0 Band Neutrophils % (Manual) 0 Lymphocytes % (Manual) 3 L 10.0-50.0 Monocytes % (Manual) 6 0-12 Eosinophils % (Manual) 0 0-7 Basophils % (Manual) 0 0.0-2.0 Metamyelocytes % (manual) 0 Myelocytes % (Manual) 0 Promyelocytes % (Manual) 0 Blast Cells % (Manual) 0 Reactive Lymphocytes 0 Smudge Cells 2 /100 WBC Platelet Estimate Adequate Serum Osmolality 313 H 278-298 mOsm/kg Lactic Acid Level 2.0 0.4-2.0 mmol/L Magnesium Level 1.5 L 1.6-2.6 mg/dL Troponin I High Sensitivity 46 </=54 ng/L Lipase 44 12-53 U/L Beta-Hydroxybutyric Acid 3.625 H < 0.4 mmol/L SEPSIS Sepsis Screen Date sepsis recognized/suspect: Mar 15, 2025 Time Sepsis recognized/suspect: 0 Recent Procedure: No On Antibiotic Therapy: No Respiratory Rate >20: No Heart Rate >90: No Temp<36 C (96.8 F) or >38.3 C: No SBP <90 or MAP <65 mmHG: No New Acute Mental Status Change: No Is the patient on CPAP, BIPAP,: No Physician Orders Customer Account Representative (03/15/25 ) Electrocardigram (03/15/25 11:35) Blood Culture (03/15/25 13:24) Customer Account Representative (03/15/25 15:27) Daily Weight (03/15/25 15:27) Bedrest With Bathroom Privileg (03/15/25 15:) Vs Q1hr And Prn (03/15/25 15:27) Record Ekg (03/15/25 15:27) Oxygen Per Standardized Proced (03/15/25 15:27) Oxygen Per Standardized Proced (03/15/25 15:27) Emergency Dysrhythmia Protocol (03/15/25 15:27) D/C All Diabetic Medications (03/15/25:) Insulin Drip Protocol (03/15/25) Dextrose 50% Syringe (03/15/25 15:30) Insulin Lantus (Glargine) (Lantus) (03/16/25 10:00) Magnesium Sulfate 1gm/100ml (03/15/25 16:00) Potassium Chl 20meq/100ml (03/15/25 15:30) Basic Metabolic Panel (03/15/25 18:00) Basic Metabolic Panel (03/16/25 00:00) Basic Metabolic Panel (03/16/25 06:00) Basic Metabolic Panel (03/16/25 12:00) Basic Metabolic Panel (03/16/25 18:00) Insulin Drip Protocol (03/15/25:) Sodium Chloride 0.9% (03/15/25 15:) Sodium Chloride 0.9% (03/15/25 19:30) Sodium Chloride 0.9% (03/15/25 21:30) Insulin Drip 100 Unit/100ml (Myxredlin 1 (03/15/25 15:) Dextrose 50% Syringe (03/15/25 15:30) Glucose Blood (Accu-Chek Comfort Curve T (03/15/25 16:30) Basic Metabolic Panel (03/15/25 21:27) Basic Metabolic Panel (03/16/25 03:27) Basic Metabolic Panel (03/16/25 09:27) Neurological Assessment (03/15/25:) Vs/Hemodynamics .PER UNIT PROTOCOL (03/15/25:) Pantoprazole (Protonix) (03/15/25 22:00) Buspirone Hcl Tablet (Buspar Tablet) (03/15/25 22:00) Sucralfate Tab (Carafate Tab) (03/15/25 22:00) (Nf) Aripiprazole (Abilify Mycite) (03/15/25 22:00) (Nf) Doxepin Hcl (03/15/25 22:00) Admit (03/15/25:) Allergies (03/15/25:) Code Status (03/15/25:27) Ondansetron Hcl (Zofran) (03/15/25 15:30) Docusate Sodium Capsule (Colace Capsule) (03/15/25 15:30) Complete Blood Count (03/16/25 04:00) Comprehensive Metabolic Panel (03/16/25 04:00) Npo (Nothing By Mouth) Diet (03/15/25 Dinner) Condition: Fair (03/15/25 15:) Morphine Sulfate Injection (03/15/25 15:30) Sequential Compression Device (03/15/25 ) Nitroglycerin Sublingual (Ntrostat Subli (03/15/25:) Stat Ekg For Chest Pain (03/15/25:) Notify Of Changes From Base (03/15/25:) Software Maintenance Engineer For 24 Hours (03/15/25:) Emergency Dysrhythmia Protocol (03/15/25:) Rhythm Strips Once Every Shift (03/15/25 15:) Oxygen By Nasal Cannula (03/15/25:) Enoxaparin Sodium (Lovenox) (03/16/25 10:00) Vital Signs Date Time Temp Pulse Resp B/P (MAP) Pulse Ox O2 Delivery O2 Flow Rate FiO2 03/15/25 15:03 85 16 137/75 (95) 98 03/15/25 13:00 103 16 147/86 (106) 98 03/15/25 12:00 109 03/15/25 11:20 98.6 110 17 122/76 98 98.6 Laboratory Tests Test 03/15/25 11:42 03/15/25 13:48 Lactic Acid Level 2.0 mmol/L (0.4-2.0) White Blood Count 26.6 10^3/uL (4.4-10.8) H 26.6 10^3/uL (4.4-10.8) H Medications Medications Dose Ordered Sig/Abhinav Route Start Time Stop Time Status Last Admin Dose Admin Ceftriaxone Sodium 50 ml @ 100 mls/hr ONCE ONCE IV 03/15/25 12:15 03/15/25 12:44 DC 03/15/25 14:08 100 MLS/HR Diagnostic Test (Pha) 1 strip Q90MIN 03/15/25 16:30 12/13/25 16:45 1 STRIP Insulin Glargine 15 units ONCE ONCE SC 03/15/25 15:30 03/15/25 16:26 DC 03/15/25 16:56 15 UNITS Magnesium Sulfate/ Dextrose 100 ml @ 100 mls/hr Q1HR IV 03/15/25 16:00 03/15/25 17:59 03/15/25 16:57 100 MLS/HR Ondansetron HCl 8 mg ONCE ONCE IV 03/15/25 11:45 03/15/25 11:46 DC 03/15/25 12:02 8 MG Pantoprazole Sodium 40 mg ONCE ONCE IV 03/15/25 15:30 03/15/25 16:26 DC 03/15/25 16:56 40 MG Sodium Chloride 1,000 ml @ 500 mls/hr Q2H IV 03/15/25 15:30 03/15/25 19:29 03/15/25 16:57 500 MLS/HR Sodium Chloride 1,000 ml @ 1,000 mls/hr Q1H ONCE IV 03/15/25 11:45 03/15/25 12:44 DC 03/15/25 12:02 1,000 MLS/HR Sodium Chloride 1,000 ml @ 1,000 mls/hr Q1H ONCE IV 03/15/25 12:15 03/15/25 13:14 DC 03/15/25 12:15 1,000 MLS/HR Assessment/Plan Assessment/Plan 29-year-old male admitted for acute diabetic ketoacidosis with hematemesis, complicated by acute kidney injury, electrolyte abnormalities, and severe leukocytosis, requiring insulin infusion, IV fluids, and close monitoring. Acute diabetic ketoacidosis (Type 1 DM) Glucose >330, beta-hydroxybutyrate 3.625, anion gap 18 DKA protocol Insulin drip IV fluids per protocol Serial BMP, anion gap monitoring lantus 15 units qhs now Initiated DKA protocol Every hour Accu-Check Administer sodium bicarb if pH less than 6.9 BMP every 6 hours along with vbg Replace electrolyte as needed NPO Diabetic education acute metabolic acidosis likely in setting of acute dka start bicarb drip if PH <6.9 monitor for worsening numbers acute leukocytosis likely in setting of severe dehydration/Likely stress response from DKA consider blood cultures and infectious workup up if with fever fu lactate cxr normal Acute tachycardia in setting of dka cont ivf hydration fu mag and phos level mild Hyponatremia likely in setting of DKA cont iv hydration Monitor sodium acute jacques on chronic ckd stage 2 likely dehydration from dka and vomiting ordered ivf continue hydration strict i/o's Avoid nephrotoxins Monitor renal function acute Hematemesis / suspected gastritis Blood-streaked emesis Start Protonix IV BID Monitor hemoglobin GI consult if hemoglobin drops or bleeding persists acute Hypokalemia (K 3.3) replete acute Hypomagnesemia (Mg 1.5) repleted acute Hyponatremia (Na 130) Replace electrolytes per DKA protocol chronic problems Schizophrenia Monitor mental status History of CVA with residual left-sided weakness Baseline deficit Hypertension Resume home medications when stable Hyperlipidemia Resume statin when LFTs stable Type 1 diabetes mellitus Chronic kidney disease stage II Gastritis Right eye enucleation FEN / PPx Fluids: Aggressive IV fluids per DKA protocol Electrolytes: Potassium and magnesium replacement per protocol Nutrition: NPO initially advance when stable DVT Prophylaxis: SCDs GI Prophylaxis: IV Protonix BID Disposition Admit to [facility] for DKA management with insulin drip, IV fluids, electrolyte correction, and monitoring of renal function and hematemesis. Transition to subcutaneous insulin when anion gap closes and patient clinically improves. Plan discussed with: Patient My Orders Orders - NUVIA AZUL DNP Procedure Category Date Status Time Customer Account Representative [facility] 03/15/25 In Process 15:27 Daily Weight [facility] 03/15/25 In Process 15:27 Bedrest With Bathroom [facility] 03/15/25 In Process Privileg 15:27 Vs Q1hr And Prn [facility] 03/15/25 In Process 15:27 Record Ekg [facility] 03/15/25 In Process 15:27 Oxygen Per [facility] 03/15/25 In Process Standardized Proced 15:27 Oxygen Per [facility] 03/15/25 In Process Standardized Proced 15:27 Emergency Dysrhythmia [facility] 03/15/25 In Process Protocol 15:27 D/C All Diabetic [facility] 03/15/25 In Process Medications 15:27 Insulin Drip Protocol [facility] 03/15/25 In Process 15:27 Dextrose 50% Syringe [facility] 03/15/25 In Process 15:30 Insulin Lantus [facility] 03/16/25 In Process (Glargine) (Lantus) 10:00 Magnesium Sulfate [facility] 03/15/25 In Process 1gm/100ml 16:00 Potassium Chl [facility] 03/15/25 In Process 20meq/100ml 15:30 Basic Metabolic Panel LAB 03/15/25 Logged 18:00 Basic Metabolic Panel LAB 03/16/25 Verified 00:00 Basic Metabolic Panel LAB 03/16/25 Verified 06:00 Basic Metabolic Panel LAB 03/16/25 Verified 12:00 Basic Metabolic Panel LAB 03/16/25 Verified 18:00 Insulin Drip Protocol [facility] 03/15/25 In Process 15:27 Sodium Chloride 0.9% [facility] 03/15/25 In Process 15:30 Sodium Chloride 0.9% [facility] 03/15/25 In Process 19:30 Sodium Chloride 0.9% [facility] 03/15/25 In Process 21:30 Insulin Drip 100 [facility] 03/15/25 In Process Unit/100ml (Myxredlin 15:30 Dextrose 50% Syringe [facility] 03/15/25 In Process 15:30 Glucose Blood [facility] 03/15/25 In Process (Accu-Chek Comfort 16:30 Basic Metabolic Panel LAB 03/15/25 Logged 21:27 Basic Metabolic Panel LAB 03/16/25 Verified 03:27 Basic Metabolic Panel LAB 03/16/25 Verified 09:27 Neurological [facility] 03/15/25 In Process Assessment 15:27 Vs/Hemodynamics [facility] 03/15/25 In Process 15:27 Pantoprazole [facility] 03/15/25 In Process (Protonix) 22:00 Buspirone Hcl Tablet [facility] 03/15/25 In Process (Buspar Tablet) 22:00 Sucralfate Tab [facility] 03/15/25 In Process (Carafate Tab) 22:00 (Nf) Aripiprazole [facility] 03/15/25 In Process (Abilify Mycite) 22:00 (Nf) Doxepin Hcl [facility] 03/15/25 In Process 22:00 Admit ADMIT 03/15/25 Transmitted 15:27 Allergies [facility] 03/15/25 In Process 15:27 Code Status CODE 03/15/25 Transmitted 15:27 Ondansetron Hcl [facility] 03/15/25 In Process (Zofran) 15:30 Docusate Sodium [facility] 03/15/25 In Process Capsule (Colace 15:30 Complete Blood Count LAB 03/16/25 Verified 04:00 Comprehensive LAB 03/16/25 Verified Metabolic Panel 04:00 Npo (Nothing By DIET 03/15/25 Transmitted Mouth) Diet Dinner Condition: Fair [facility] 03/15/25 In Process 15:27 Morphine Sulfate [facility] 03/15/25 In Process Injection 15:30 Sequential [facility] 03/15/25 In Process Compression Device Nitroglycerin [facility] 03/15/25 In Process Sublingual (Ntrostat 15:30 Stat Ekg For Chest [facility] 03/15/25 In Process Pain 15:27 Notify Md Of Changes [facility] 03/15/25 In Process From Base 15:27 Software Maintenance Engineer For [facility] 03/15/25 In Process 24 Hours 15:27 Emergency Dysrhythmia [facility] 03/15/25 In Process Protocol 15:27 Rhythm Strips Once [facility] 03/15/25 In Process Every Shift 15:27 Oxygen By Nasal 03/15/25 Transmitted Cannula 15:27 Enoxaparin Sodium [facility] 03/16/25 In Process (Lovenox) 10:00 Date of Service: Mar 15, 2025 Billing Provider: NUVIA AZUL DNP Common Visit Codes: [id number] INP/OBS CARE (HIGH), [id number] CARE 30- 74 MIN (Total critical care time: Approximately 45 minutes This critical care time included obtaining a history; examining the patient; pulse oximetry; ordering and review of studies; arranging urgent treatment with development of a management plan; evaluation of patient's response to treatment; frequent reassessment; and, discussions with other providers.) NUVIA AZUL DNP Mar 15, 2025 17:34
[2025-03-15 18:01] LABS: Anion Gap 15 (5-15)
[2025-03-15 18:06] LABS: BUN/Creatinine Ratio 14.5 (10.0-20.0)
[2025-03-15 18:11] LABS: Blood Urea Nitrogen 49 mg/dL (9-23); Calcium 7.8 mg/dL (8.7-10.4); Carbon Dioxide 31 mmol/L (20-31); Chloride 86 mmol/L (98-107); Glucose 360 mg/dL (74-106); Potassium 3.4 mmol/L (3.5-5.1); Sodium 132 mmol/L (136-145)
[2025-03-15] MEDS: POTASSIUM CHL 20MEQ/100ML 100 ML IV SCH (18:29)
[2025-03-15] MEDS: MORPHINE SULFATE INJ 2 MG/ml SYRG IV PRN (18:52)
[2025-03-15] MEDS: ONDANSETRON HCL 4 MG/2 ML VIAL IV PRN (18:53)
[2025-03-15 19:30] VITALS: RESP 15; O2SAT 95
[2025-03-15] MEDS: MORPHINE SULFATE 4 MG/ML SYR/VIAL ONE (19:47)
[2025-03-15] MEDS: INSULIN DRIP 100 UNIT/100ML 100 ML IV SCH (20:00)
[2025-03-15 21:47] LABS: Potassium 3.8 mmol/L (3.5-5.1); Sodium 136 mmol/L (136-145)
[2025-03-15 21:48] LABS: Anion Gap 14 (5-15); Carbon Dioxide 31 mmol/L (20-31)
[2025-03-15 21:53] LABS: BUN/Creatinine Ratio 13.3 (10.0-20.0)
[2025-03-15 21:56] LABS: Blood Urea Nitrogen 46 mg/dL (9-23); Calcium 8.6 mg/dL (8.7-10.4); Chloride 91 mmol/L (98-107); Glucose 269 mg/dL (74-106)
[2025-03-15] MEDS: PANTOPRAZOLE 40 MG/10 ML VIAL INJ IV SCH (23:08)
[2025-03-15] MEDS: SUCRALFATE 1 GM TAB PO SCH (23:08)
[2025-03-16] VITALS (7 sets, daily range): BP systolic 130–151; BP diastolic 73–96; PULSE 54–72; RESP 16–20; TEMP 97.9–99.1; O2SAT 96–100
[2025-03-16 01:11] LABS: Sodium 138 mmol/L (136-145)
[2025-03-16 01:12] LABS: Anion Gap 12 (5-15); Carbon Dioxide 31 mmol/L (20-31)
[2025-03-16 01:13] LABS: Calcium 8.3 mg/dL (8.7-10.4); Chloride 95 mmol/L (98-107); Potassium 3.4 mmol/L (3.5-5.1)
[2025-03-16 01:17] LABS: BUN/Creatinine Ratio 12.9 (10.0-20.0)
[2025-03-16 01:18] LABS: Blood Urea Nitrogen 40 mg/dL (9-23); Glucose 147 mg/dL (74-106)
[2025-03-16] MEDS ORDERED: DEXTROSE (50%) 50ML SYRG IV PRN (05:00)
[2025-03-16 06:00] LABS: Hematocrit 34.3 % (41.0-53.0); Hemoglobin 11.2 g/dL (13.5-17.5); Mean Corpuscular Hemoglobin 29.8 pg (28.0-32.0); Mean Corpuscular Volume 91.5 fL (80.0-100.0); Nucleated Red Blood Cells % 0.0 %
[2025-03-16 06:22] LABS: Alanine Aminotransferase 16 U/L (7-40); Albumin 3.7 g/dL (3.2-4.8); Alkaline Phosphatase 110 U/L (46-116); Anion Gap 9 (5-15); BUN/Creatinine Ratio 13.6 (10.0-20.0); Bilirubin, Total 0.4 mg/dL (0.2-1.0); Carbon Dioxide 29 mmol/L (20-31); Chloride 100 mmol/L (98-107); Glucose 105 mg/dL (74-106); Potassium 3.8 mmol/L (3.5-5.1); Sodium 138 mmol/L (136-145); Total Protein 6.0 g/dL (5.7-8.2)
[2025-03-16 06:23] LABS: Blood Urea Nitrogen 36 mg/dL (9-23); Calcium 7.7 mg/dL (8.7-10.4)
[2025-03-16] MEDS: ACCU-CHEK COMFORT CURVE STRIP VI SCH (08:18)
[2025-03-16] MEDS: InsuLIN REG 1unit/0.01ml Soln (100units/ml) SC SCH (08:18)
[2025-03-16] MEDS: INSULIN LANTUS (GLARGINE) 1 /0.01ml (100units/ml) SC SCH (09:45)
[2025-03-16] MEDS: ENOXAPARIN SOD 30 MG/0.3 ML SYRINGE SC SCH (09:47)
[2025-03-16] MEDS ORDERED: INSULIN LANTUS (GLARGINE) 1 /0.01ml (100units/ml) SC SCH (10:00)
[2025-03-16 13:04] LABS: Potassium 3.6 mmol/L (3.5-5.1)
[2025-03-16 13:05] LABS: Anion Gap 12 (5-15); Carbon Dioxide 28 mmol/L (20-31); Chloride 95 mmol/L (98-107); Sodium 135 mmol/L (136-145)
[2025-03-16 13:07] LABS: Calcium 8.2 mg/dL (8.7-10.4)
[2025-03-16 13:10] LABS: BUN/Creatinine Ratio 12.6 (10.0-20.0)
[2025-03-16 13:30] LABS: Blood Urea Nitrogen 37 mg/dL (9-23); Glucose 168 mg/dL (74-106)
--- NOTE | 2025-03-16 16:06 | DVHPN2 ---
Subjective GLC is new Reviewed: H&P Changes from previous H/P or p: No Changes Eyes: No Pain, No Vision change, No Conjunctivae inflammation, No Eyelid inflammation, No Other, No Redness ENT: No Ear pain, No Ear discharge, No Nose pain, No Nose discharge, No Nose congestion, No Mouth pain, No Mouth swelling, No Throat pain, No Throat swelling, No Other Cardiovascular: No Chest Pain, No Palpitations, No Orthopnea, No Paroxysmal Noc. Dyspnea, No Edema, No Lt Headedness, No Other Respiratory: No Cough, No Dry, No Shortness of breath, No SOB with excertion, No Wheezing, No Hemoptysis, No Pleuritic Pain, No Sputum, No Other Gastrointestinal: Nausea, Vomiting, Abdominal Pain; No Diarrhea, No Constipation, No Melena, No Hematochezia, No Other Genitourinary: No Dysuria, No Frequency, No Incontinence, No Hematuria, No Retention, No Other Musculoskeletal: No other, No neck pain, No shoulder pain, No arm pain, No back pain, No hand pain, No leg pain, No foot pain Skin: No Rash, No Lesions, No Jaundice, No Bruising, No Other Objective Vitals Vital Signs Date Time Temp Pulse Resp B/P (MAP) Pulse Ox O2 Delivery O2 Flow Rate FiO2 03/16/25 14:55 99.1 54 17 138/87 (104) 97 99.1 03/16/25 14:55 Room Air* 0 21 Intake/Output Intake and Output 03/16/25 05:00 Intake Total 2161.5 ml Balance 2161.5 ml Intake IV Total 2161.5 ml General Appearance: Alert, Oriented X3 Lungs: Clear to auscultation Cardiovascular: Regular rate, Normal S1, Normal S2 Abdomen: Normal bowel sounds Medications Current Medications Medications Dose Ordered Sig/Abhinav Route Start Time Stop Time Status Last Admin Dose Admin Diagnostic Test (Pha) 1 strip Q90MIN 03/15/25 16:30 UNV Insulin Glargine 15 units DAILY SC 03/16/25 10:00 03/16/25 09:45 15 UNITS Insulin Glargine 15 units DAILY SC 03/16/25 10:00 UNV Pantoprazole Sodium 40 mg BID IV 03/15/25 22:00 03/16/25 09:47 40 MG Buspirone HCl 10 mg Q12HR PO 03/15/25 22:00 03/16/25 09:47 10 MG Sucralfate 1 gm BID PO 03/15/25 22:00 03/16/25 10:05 1 GM Patient Own Medication 15 mg HS PO 03/15/25 22:00 Patient Own Medication 100 mg HS PO 03/15/25 22:00 Ondansetron HCl 4 mg Q4HP PRN IV 03/15/25 15:30 03/16/25 05:27 4 MG Docusate Sodium 100 mg BIDPRN PRN PO 03/15/25 15:30 Enoxaparin Sodium 30 mg DAILY SC 03/16/25 10:00 03/16/25 09:47 30 MG Morphine Sulfate 2 mg Q4HPRN PRN IV 03/15/25 15:30 03/15/25 18:52 2 MG Nitroglycerin 0.4 mg Q5MINP PRN SL 03/15/25 15:30 Diagnostic Test (Pha) 1 strip IQ4HR 03/16/25 08:00 03/16/25 12:55 1 STRIP Insulin Human Regular IQ4HR SC 03/16/25 08:00 03/16/25 12:00 3 UNITS Dextrose 50 ml UD PRN IV 03/16/25 05:00 Laboratory Results Laboratory Tests 03/16/25 05:49 03/16/25 12:36 Chemistry Test 03/15/25 17:45 03/15/25 21:22 03/16/25 00:45 03/16/25 05:49 Calcium Level 7.8 mg/dL (8.7-10.4) L 8.6 mg/dL (8.7-10.4) L 8.3 mg/dL (8.7-10.4) L 7.7 mg/dL (8.7-10.4) L Albumin 3.7 g/dL (3.2-4.8) Total Protein 6.0 g/dL (5.7-8.2) Test 03/16/25 12:36 Calcium Level 8.2 mg/dL (8.7-10.4) L LFT Test 03/16/25 05:49 Alanine Aminotransferase (ALT) 16 U/L (7-40) Alkaline Phosphatase 110 U/L (46-116) Aspartate Amino Transferase (AST) 15 U/L (13-40) Total Bilirubin 0.4 mg/dL (0.2-1.0) Urinalysis Test 03/15/25 13:57 Urine Color Light-yellow (Yellow) Urine Clarity Clear (Clear) Urine pH 7.5 (5.0-9.0) Urine Specific Lane 1.016 (1.001-1.035) Urine Protein 2+ (Negative) H Urine Ketones 2+ (Negative) H Urine Blood 1+ /uL (Negative) H Urine Nitrite Negative (Negative) Urine Bilirubin Negative (Negative) Urine Urobilinogen Normal mg/dL (Negative) Urine Leukocyte Esterase Negative /uL (Negative) Urine RBC 2 /hpf (0 - 3) Urine Microscopic WBC < 1 /HPF (0-3) Urine Squamous Epithelial Cells None seen /hpf (<5) Urine Bacteria None seen /hpf (None Seen) Urine Glucose 3+ mg/dL (Normal) H Microbiology Microbiology Date/Time Source Procedure Growth Status 03/15/25 14:08 Blood Blood Culture - Preliminary NO GROWTH AFTER 24 HOURS OF INCUBATION. Resulted Assessment/Plan Assessment/Plan #DKA Anion gap closed started long acting IVF Diet #Acute kidney injury due to ATN Crea 3.6>2.6 IVF Monitor #Acute hyponatremia #Acute hyperkalemia Monitor electrolytes Plan discussed with: Patient Date of Service: Mar 16, 2025 Billing Provider: RAIMUNDO BOWER MD Common Visit Codes: [id number] INP/OBS CARE(HIGH) RAIMUNDO BOWER MD Mar 16, 2025 16:06
[2025-03-16] MEDS ORDERED: TRAZ-181 PO (16:50)
[2025-03-16] MEDS ORDERED: LISI20TA56 PO (16:50)
[2025-03-16 18:34] LABS: Sodium 136 mmol/L (136-145)
[2025-03-16 18:35] LABS: Anion Gap 10 (5-15); Carbon Dioxide 28 mmol/L (20-31)
[2025-03-16 18:37] LABS: Calcium 8.6 mg/dL (8.7-10.4); Chloride 98 mmol/L (98-107); Potassium 3.4 mmol/L (3.5-5.1)
[2025-03-16 18:41] LABS: BUN/Creatinine Ratio 12.0 (10.0-20.0); Blood Urea Nitrogen 35 mg/dL (9-23); Glucose 98 mg/dL (74-106)
[2025-03-16] MEDS: MORPHINE SULFATE 4 MG/ML SYR/VIAL IV PRN (18:45)
[2025-03-16] MEDS: MELATONIN 5 MG TAB PO ONE (23:16)
[2025-03-17] VITALS (7 sets, daily range): BP systolic 142–163; BP diastolic 93–107; PULSE 50–84; RESP 14–18; TEMP 36.9; O2SAT 96–100
[2025-03-17 00:39] LABS: Hematocrit 34.0 % (41.0-53.0); Hemoglobin 11.4 g/dL (13.5-17.5); Mean Corpuscular Hemoglobin 30.5 pg (28.0-32.0); Mean Corpuscular Volume 91.1 fL (80.0-100.0); Nucleated Red Blood Cells % 0.0 %
[2025-03-17] MEDS: ACETAMINOPHEN 325 MG TAB PO PRN (03:34)
[2025-03-17 11:58] LABS: Chloride 99 mmol/L (98-107)
[2025-03-17 11:59] LABS: Anion Gap 8 (5-15); Carbon Dioxide 27 mmol/L (20-31)
[2025-03-17 12:04] LABS: BUN/Creatinine Ratio 6.9 (10.0-20.0); Blood Urea Nitrogen 20 mg/dL (9-23)
[2025-03-17 12:05] LABS: Calcium 8.6 mg/dL (8.7-10.4); Glucose 180 mg/dL (74-106); Potassium 3.4 mmol/L (3.5-5.1); Sodium 134 mmol/L (136-145)
--- NOTE | 2025-03-17 15:13 | DVHDS2 ---
Discharge Summary Date of Admission Mar 15, 2025 at 15:27 Date of Discharge: Mar 17, 2025 Labs/Diagnostic Data: Laboratory Results Test 03/17/25 08:05 03/17/25 00:10 03/16/25 05:49 03/15/25 13:57 POC Glucose 213 mg/dl (70-106) White Blood Count 12.9 10^3/uL (4.4-10.8) Red Blood Count 3.73 10^6/uL (4.5-5.90) Hemoglobin 11.4 g/dL (13.5-17.5) Hematocrit 34.0 % (41.0-53.0) Mean Corpuscular Volume 91.1 fL (80.0-100.0) Mean Corpuscular Hemoglobin 30.5 pg (28.0-32.0) Mean Corpuscular Hemoglobin Concent 33.5 g/dL (32.0-36.0) Red Cell Distribution Width 13.1 % (11.8-14.3) Platelet Count 206 10^3/uL (140-450) Mean Platelet Volume 7.6 fL (6.9-10.8) Neutrophils (%) (Auto) 76.8 % (37.0-80.0) Lymphocytes (%) (Auto) 13.0 % (10.0-50.0) Monocytes (%) (Auto) 9.0 % (0.0-12.0) Eosinophils (%) (Auto) 1.0 % (0.0-7.0) Basophils (%) (Auto) 0.2 % (0.0-2.0) Neutrophils # (Auto) 9.9 10 ^3/uL (1.6-8.6) Lymphocytes # (Auto) 1.7 10 ^3/uL (0.4-5.4) Monocytes # (Auto) 1.2 10 ^3/uL (0-1.3) Eosinophils # (Auto) 0.1 10 ^3/uL (0-0.8) Basophils # (Auto) 0 10 ^3/uL (0-0.2) Nucleated Red Blood Cells 0.0 % Sodium Level 134 mmol/L (136-145) Potassium Level 3.4 mmol/L (3.5-5.1) Chloride Level 99 mmol/L (98-107) Carbon Dioxide Level 27 mmol/L (20-31) Anion Gap 8 (5-15) Blood Urea Nitrogen 20 mg/dL (9-23) Creatinine 2.91 mg/dL (0.700-1.30) Glomerular Filtration Rate Calc 29 mL/min (>90) BUN/Creatinine Ratio 6.9 (10.0-20.0) Serum Glucose 180 mg/dL (74-106) Calcium Level 8.6 mg/dL (8.7-10.4) Total Bilirubin 0.4 mg/dL (0.2-1.0) Aspartate Amino Transferase (AST) 15 U/L (13-40) Alanine Aminotransferase (ALT) 16 U/L (7-40) Alkaline Phosphatase 110 U/L (46-116) Total Protein 6.0 g/dL (5.7-8.2) Albumin 3.7 g/dL (3.2-4.8) Urine Color Light-yellow (Yellow) Urine Clarity Clear (Clear) Urine pH 7.5 (5.0-9.0) Urine Specific [place] 1.016 (1.001-1.035) Urine Protein 2+ (Negative) Urine Ketones 2+ (Negative) Urine Blood 1+ /uL (Negative) Urine Nitrite Negative (Negative) Urine Bilirubin Negative (Negative) Urine Urobilinogen Normal mg/dL (Negative) Urine Leukocyte Esterase Negative /uL (Negative) Urine RBC 2 /hpf (0 - 3) Urine Microscopic WBC < 1 /HPF (0-3) Urine Squamous Epithelial Cells None seen /hpf (<5) Urine Bacteria None seen /hpf (None Seen) Urine Glucose 3+ mg/dL (Normal) Test 03/15/25 11:42 Differential Total Cells Counted 100.0 (100) Neutrophils % (Manual) 91 (37.0-80.0) Band Neutrophils % (Manual) 0 Lymphocytes % (Manual) 3 (10.0-50.0) Monocytes % (Manual) 6 (0-12) Eosinophils % (Manual) 0 (0-7) Basophils % (Manual) 0 (0.0-2.0) Metamyelocytes % (manual) 0 Myelocytes % (Manual) 0 Promyelocytes % (Manual) 0 Blast Cells % (Manual) 0 Reactive Lymphocytes 0 Smudge Cells 2 /100 WBC Platelet Estimate Adequate Serum Osmolality 313 mOsm/kg (278-298) Lactic Acid Level 2.0 mmol/L (0.4-2.0) Magnesium Level 1.5 mg/dL (1.6-2.6) Troponin I High Sensitivity 46 ng/L (</=54) Lipase 44 U/L (12-53) Beta-Hydroxybutyric Acid 3.625 mmol/L (< 0.4) Other Laboratory Tests 03/17/25 00:10 Brief Hx & Hospital Course: 29-year-old male with past medical history significant for type 1 diabetes mellitus with prior episodes of DKA, CKD stage II, right eye enucleation, schizophrenia, history of CVA with residual left-sided weakness, hypertension, hyperlipidemia, gastritis, and prior SIRS related to diabetes presents with vomiting for two days, including blood-streaked emesis. He denies diarrhea, fever, chest pain, or shortness of breath. He reports feeling similar to prior episodes of DKA and is concerned that he is developing another episode. He states he has been taking his insulin as prescribed. He denies marijuana use currently but reports smoking marijuana yesterday. In the ED, laboratory evaluation revealed severe leukocytosis (WBC 26.6), glucose 621285, beta- hydroxybutyrate 3.625, anion gap 18, lactate 2.0, sodium 130, potassium 3.3, chloride 78, CO? 34, creatinine 3.53, BUN 45, magnesium 1.5, alkaline phosphatase 155, albumin 4.9, and lipase 46. Troponin was negative. Findings are consistent with acute diabetic ketoacidosis, acute kidney injury on CKD, electrolyte derangements, and possible gastritis with hematemesis. Given metabolic instability and risk for further decompensation, the patient will be admitted to the [facility] for DKA protocol, insulin drip, IV fluids, electrolyte replacement, and close monitoring. SIDRA resolved DKA resolved and got better on log acting Condition at Discharge: Good Final Diagnosis/Problems List DKA Acute kidney injury due to VMN Hyperkalemia Discharge Disposition: Home Discharge Instruct/Medications Diet: Regular Activity: No Restrictions, As Tolerated Follow Up/Referral: PCP in days 7 days Medications: same home medicatoins Scheduled Aripiprazole (Abilify Mycite), 15 MG PO HS, (Reported) Atorvastatin Calcium (Atorvastatin Calcium), 10 MG PO HS Buspirone HCl (Buspirone HCl), 10 MG PO Q12HR Doxepin Hcl (Doxepin Hcl), 100 MG PO HS, (Reported) Fluconazole (Diflucan), 1 TAB PO DAILY Hydroxyzine Hcl (Hydroxyzine Hcl), 1 TAB PO TID Insulin Glargine (Basaglar Kwikpen), 30 UNIT SC DAILY Insulin Lispro (Insulin Lispro Kwikpen), 1 DOSE SC ACHS Lisinopril (Lisinopril), 1 TAB PO DAILY, (Reported) Metoclopramide Hcl (Reglan), 10 MG PO BID Pantoprazole Sodium Sesquihydr (Protonix), 40 MG PO BID Sucralfate (Carafate), 1 GM PO BID Miscellaneous Medications Trazodone HCl (Trazodone Hydrochloride), 150 MG PO, (Reported) Discharge Statement: "Patient was advised to return to the ER or call 911 if any headaches, dizziness, shortness of breath, chest pain, abdominal pain, bleeding, fevers, or worsening of medical condition. Patient was counseled about treatment plan, medications, possible side effects, patientverbalized understanding. All questions were answered to the best of my ability. This discharge took greater then 30 minutes in planning, reviewing documentation, counseling the patient, and discussing with other team members." ASSESSMENT ASSESSMENT Assessment DKA Acute kidney injury due to VMN Hyperkalemia Date of Service: Mar 17, 2025 Billing Provider: RAIMUNDO BOWER MD Common Visit Codes: 25073-DUC/OBS DISCH DAY >30min RAIMUNDO BOWER MD Mar 17, 2025 15:13
== END 2025-03-17 17:15 | disposition home or self-care (01) | DRG 377 ==
LOC: ER 11:10 → EDBD 11:10 → OVERFLOW 15:27 → TELE-WESTW 03-16 15:31
PROVIDERS: ADMIT Hospitalist; ATTEND Hospitalist
DX: K29.71 Gastritis, unspecified, with bleeding (principal); E10.10 Type 1 diabetes mellitus with ketoacidosis without coma; N17.0 Acute kidney failure with tubular necrosis; I69.354 Hemiplegia and hemiparesis following cerebral infarction affecting left non-dominant side; E10.22 Type 1 diabetes mellitus with diabetic chronic kidney disease; I12.9 Hypertensive chronic kidney disease with stage 1 through stage 4 chronic kidney disease, or unspecified chronic kidney disease; F20.9 Schizophrenia, unspecified; E87.1 Hypo-osmolality and hyponatremia; K29.70 Gastritis, unspecified, without bleeding; E87.6 Hypokalemia; E83.42 Hypomagnesemia; E78.5 Hyperlipidemia, unspecified; N18.2 Chronic kidney disease, stage 2 (mild); E86.0 Dehydration; E87.5 Hyperkalemia; Z79.4 Long term (current) use of insulin; Z79.899 Other long term (current) drug therapy
CPT/HCPCS: 36415; 80048; 80053; 81001; 82010; 82962; 83605; 83690; 83735; 83930; 84484; 85007; 85025; 85027; 87040; G0378; J1815; J2405; J2470; J3480